=== PATIENT | male | born 1985 | race Caucasian/White ===

== ENCOUNTER 2024-02-09 10:13 | Emergency (ER) | payer OTHER, SELFPAY ==
[2024-02-09 10:21] VITALS: BP 123/77; PULSE 56; RESP 18; TEMP 37; O2SAT 98; BMI 25.8
--- NOTE | 2024-02-09 10:36 | ED.NAVMDI1 ---
HPI - Nausea/Vomiting/Diarrhea General Chief complaint: Nausea/Vomiting/Diarrhea Time Seen by Provider: 02/09/24 10:22 Source: patient Mode of arrival: walk-in Limitations: no limitations History of Present Illness HPI Narrative: 39-year-old male presents for nausea vomiting and diarrhea. It started 2 days ago. No hematemesis or complaints of abdominal pain. No blood in his stool. He states that this happens every 3 to 6 months and when it happens sometimes his potassium goes low. No fever. Related Data Previous Rx's Medication Instructions Recorded ondansetron 4 mg disintegrating 4 mg PO Q6H PRN nausea and 02/09/24 tablet vomiting #20 tabs Allergies Allergy/AdvReac Type Severity Reaction Status Date / Time No Known Drug Allergies Allergy Verified 02/09/24 10:23 Review of Systems ROS Narrative A ten point review of systems is negative except as noted above. Exam Narrative Exam Narrative: Nurses note and vital signs reviewed and patient is not hypoxic. General: The patient appears well and in no apparent distress. Patient is resting comfortably on cart. Skin: Warm, dry, no pallor noted. There is no rash noted. Head: Normocephalic, atraumatic Eye: Normal conjunctiva, no drainage, EOMI. PERRL Ears, Nose, Mouth, and Throat: oral mucosa is minimally dry. Nares patent. Cardiovascular: Regular Rate and Rhythm Respiratory: Patient is in no distress, no accessory muscle use, lungs are clear to auscultation, no wheezing, rales or rhonchi Back: non-tender GI: Soft and nontender Musculoskeletal: The patient has no evidence of calf tenderness, no pitting edema, symmetrical pulses noted bilaterally Neurological: A&O, normal speech Psychiatric: Cooperative Constitutional Vital Signs, click to edit/add: Last Vital Signs Temp 98.6 F 02/09/24 10:21 Pulse 56 L 02/09/24 10:21 Resp 18 02/09/24 10:21 BP 123/77 02/09/24 10:21 Pulse Ox 98 02/09/24 10:21 Course Vital Signs Vital signs: Vital Signs Temperature 98.6 F 02/09/24 10:21 Pulse Rate 56 L 02/09/24 10:21 Respiratory Rate 18 02/09/24 10:21 Blood Pressure 123/77 02/09/24 10:21 Pulse Oximetry 98 02/09/24 10:21 Temperature 98.6 F 02/09/24 10:21 Pulse Rate 56 L 02/09/24 10:21 Respiratory Rate 18 02/09/24 10:21 Blood Pressure 123/77 02/09/24 10:21 Pulse Oximetry 98 02/09/24 10:21 MDM - Nausea/Vomiting/Diarrhea MDM Narrative Medical decision making narrative: He was given IV fluids and oral potassium because of hypokalemia. He is improved and is able to be discharged home. Differential Diagnosis Differential diagnosis: Likely food poisoning, gastroenteritis and dehydration Lab Data Attestation: I reviewed the patient's lab results. Labs: Lab Results 02/09/24 Range/Units 10:30 WBC 12.2 H (4.0-11.0) 10^3/uL RBC 4.86 (4.70-6.10) 10^6/uL Hgb 14.8 (14.0-18.0) g/dL Hct 42.6 (42.0-54.0) % MCV 87.7 (80.0-94.0) fL MCH 30.5 (25.9-34.0) pg MCHC 34.7 (29.9-35.2) g/dL RDW 12.7 (11.0-15.0) % Plt Count 258 (150-450) 10^3/uL MPV 11.8 (9.5-13.5) fL Neut % (Auto) 76.0 H (43.0-75.0) % Lymph % (Auto) 16.2 L (20.5-60.0) % [place] % (Auto) 5.4 (1.7-12.0) % Eos % (Auto) 1.8 (0.9-7.0) % Baso % (Auto) 0.2 (0.2-2.0) % Neut # (Auto) 9.3 H (1.4-6.5) 10^3/uL Lymph # (Auto) 2.0 (1.2-3.8) 10^3/uL [place] # (Auto) 0.7 (0.3-0.8) 10^3/uL Eos # (Auto) 0.2 (0.0-0.7) 10^3/uL Baso # (Auto) 0.0 (0.0-0.1) 10^3/uL Abs Immat Gran (auto) 0.05 H (0.00-0.03) 10^3/uL Imm/Tot Granulo (auto) 0.4 (0.0-0.5) % Sodium 138 (136-145) mmol/L Potassium 2.8 L* (3.5-5.1) mmol/L Chloride 97 L (98-107) mmol/L Carbon Dioxide 25.0 (21.0-32.0) mmol/L Anion Gap 18.8 BUN 17.0 (7.0-18.0) mg/dL Creatinine 0.89 (0.70-1.30) mg/dL Est GFR ( Amer) >60 (>=60) Est GFR (Non-Af Amer) >60 (>=60) BUN/Creatinine Ratio 19.1 Glucose 108 H (74-106) mg/dL Calcium 9.2 (8.5-10.1) mg/dL Discharge Plan Discharge Stand Alone Forms: Portal Instructions Chief Complaint: Nausea/Vomiting/Diarrhea Clinical Impression: Nausea, vomiting, and diarrhea Patient Disposition: Home, Self-Care Time of Disposition Decision: 12:42 Condition: Good Mode of Transportation: Private Vehicle Prescriptions / Home Meds: New ondansetron 4 mg tablet,disintegrating 4 mg PO Q6H PRN (Reason: nausea and vomiting) Qty: 20 0RF Instructions: Acute Nausea and Vomiting (ED), Acute Diarrhea (ED) Referrals: Physician,Non-Staff, MD [Primary Care Provider] - 1 week
[2024-02-09 10:53] LABS: Basophils Percent Auto 0.2 % (0.2-2.0); Eosinophils Absolute Auto 0.2 10^3/uL (0.0-0.7); Eosinophils Percent Auto 1.8 % (0.9-7.0); Hematocrit 42.6 % (42.0-54.0); Hemoglobin 14.8 g/dL (14.0-18.0); Immature Granulocytes Abs Auto 0.05 10^3/uL (0.00-0.03); Immature Granulocytes Pct Auto 0.4 % (0.0-0.5); Lymphocytes Percent Auto 16.2 % (20.5-60.0); Mean Corpuscular HGB Conc 34.7 g/dL (29.9-35.2); Mean Corpuscular Hemoglobin 30.5 pg (25.9-34.0); Mean Corpuscular Volume 87.7 fL (80.0-94.0); Mean Platelet Volume 11.8 fL (9.5-13.5); Monocytes Absolute Auto 0.7 10^3/uL (0.3-0.8); Monocytes Percent Auto 5.4 % (1.7-12.0); Neutrophils Absolute Auto 9.3 10^3/uL (1.4-6.5); Platelet Count 258 10^3/uL (150-450); Red Blood Count 4.86 10^6/uL (4.70-6.10); Red Cell Distribution Width 12.7 % (11.0-15.0); White Blood Count 12.2 10^3/uL (4.0-11.0)
[2024-02-09] MEDS: 0.9 % SODIUM CHLORIDE 1,000 ML 1000 ML IV (10:53)
[2024-02-09 10:54] LABS: Anion Gap 18.8; BUN Creatinine Ratio 19.1; Calcium 9.2 mg/dL (8.5-10.1); Chloride 97 mmol/L (98-107); Estimated GFR (African America >60 (>=60); Estimated GFR (Non-African Ame >60 (>=60); Glucose 108 mg/dL (74-106); Sodium 138 mmol/L (136-145)
[2024-02-09] MEDS: ONDANSETRON PF 4 MG/2 ML VIAL IV (10:57)
[2024-02-09 11:06] LABS: Potassium 2.8 mmol/L (3.5-5.1)
[2024-02-09] MEDS: POTASSIUM BICARBONATE/CIT 25 MEQ TABLET EFF 50 MEQ PO (11:19)
[2024-02-09 12:46] VITALS: PULSE 51; RESP 14; O2SAT 98
== END 2024-02-09 12:58 | disposition home or self-care (01) ==
PROVIDERS: Emergency Provider Emergency Medicine
DX: R11.2 Nausea with vomiting, unspecified (principal); R19.7 Diarrhea, unspecified; E87.6 Hypokalemia
CPT/HCPCS: 36415; 80048; 85025; 96361; 96374; 99284

== ENCOUNTER 2024-05-27 13:59 | Emergency (ER) | payer OTHER, SELFPAY ==
[2024-05-27] VITALS (12 sets, daily range): BP systolic 121–149; BP diastolic 61–95; PULSE 62; TEMP 36.4; O2SAT 96–100; BMI 24.9
--- NOTE | 2024-05-27 14:15 | ED.NAVMDI1 ---
HPI - Nausea/Vomiting/Diarrhea General Chief complaint: Nausea/Vomiting/Diarrhea Stated complaint: WEAKNESS, SOB Time Seen by Provider: 05/27/24 14:01 Source: patient Mode of arrival: walk-in History of Present Illness HPI Narrative: 39 year old male presents to the ED for fatigue, chills, N/V/D, generalized abd pain. Onset was 05/24/24. Denies fever, cough, CP, dizziness, urinary sx. States he believes he is in withdrawal from Suboxone. He typically buys it on the streets. His last dose was 05/22/24. He states the sx are a recurrent issue when he is out of the medication. States it has been an issue for him for years. Related Data Home Medications ?Medication ?Instructions ?Recorded ?Confirmed No Known Home Medications 05/27/24 05/27/24 Previous Rx's ?Medication ?Instructions ?Recorded lorazepam 0.5 mg tablet (Ativan) 0.5 mg PO Q8H PRN withdrawal 05/27/24 symptoms 3 days #8 tabs ondansetron 4 mg disintegrating 4 mg PO TID PRN nausea and 05/27/24 tablet vomiting 4 days #12 tabs Allergies Allergy/AdvReac Type Severity Reaction Status Date / Time No Known Drug Allergies Allergy Verified 02/09/24 10:23 Review of Systems ROS Constitutional Reports: chills; Denies: fever Eyes Denies: change in vision Ears, nose, mouth, and throat Reports: throat pain; Denies: neck pain Cardiovascular Denies: chest pain or palpitations Respiratory Denies: shortness of breath or cough Gastrointestinal Reports: abdominal pain, nausea, vomiting and diarrhea Musculoskeletal Denies: back pain or neck pain Integumentary/Breast Denies: rash Neurological Denies: headache, numbness in extremities, weakness in extremities or dizziness Exam Constitutional Vital Signs, click to edit/add: Last Vital Signs Temp 97.6 F 05/27/24 14:05 Pulse 62 05/27/24 14:05 Resp 16 05/27/24 14:05 BP 136/72 05/27/24 16:30 Pulse Ox 96 05/27/24 16:30 O2 Del Method Room Air 05/27/24 14:05 Common normals: no apparent distress and oriented x3 General appearance: cooperative HENMT Nose: external nose normal Mouth: oral and palatal mucosa normal and lip normal Throat: posterior oropharynx normal and uvula midline Eye Common normals: conjunctivae normal and no scleral icterus Neck & C-Spine Common normals: supple Respiratory Common normals: normal respiratory effort and clear to auscultation bilaterally Effort & inspection: able to speak in complete sentences and symmetric chest movement Cardio Common normals: regular rate and regular rhythm GI Common normals: Normal to inspection, nondistended, normoactive bowel sounds present, soft to palpation and non-tender Neuro Common normals: oriented x3 Sensorium/orientation: awake and alert Speech: speech normal Course Vital Signs Vital signs: Vital Signs Temperature 97.6 F 05/27/24 14:05 Pulse Rate 62 05/27/24 14:05 Respiratory Rate 16 05/27/24 14:05 Blood Pressure 121/78 05/27/24 14:05 Pulse Oximetry 98 05/27/24 14:05 Oxygen Delivery Method Room Air 05/27/24 14:05 Temperature 97.6 F 05/27/24 14:05 Pulse Rate 62 05/27/24 14:05 Respiratory Rate 16 05/27/24 14:05 Blood Pressure 136/72 05/27/24 16:30 Pulse Oximetry 96 05/27/24 16:30 Oxygen Delivery Method Room Air 05/27/24 14:05 MDM - Nausea/Vomiting/Diarrhea MDM Narrative Medical decision making narrative: Findings were discussed with the patient and his family member. He felt his sx were due to withdrawal from Suboxone. He was given IV fluids, Reglan, Benadryl, Ativan. A Catapres patch was applied. He reported he was feeling better. He was advised to leave the Catapres patch in place for 7 days to help with his withdrawal sx. [place] was reviewed. Prescriptions were provided for Zofran and Ativan. Follow up with pcp for a recheck, further evaluation and treatment. Differential Diagnosis Differential diagnosis: Likely gastroenteritis, dehydration and other (Opiate withdrawal, viral illness) Medical Records Attestation: I reviewed the patient's medical records. Lab Data Attestation: I reviewed the patient's lab results. Labs: Lab Results 05/27/24 Range/Units 14:23 WBC 14.4 H (4.0-11.0) 10^3/uL RBC 4.72 (4.70-6.10) 10^6/uL Hgb 14.4 (14.0-18.0) g/dL Hct 41.0 L (42.0-54.0) % MCV 86.9 (80.0-94.0) fL MCH 30.5 (25.9-34.0) pg MCHC 35.1 (29.9-35.2) g/dL RDW 12.8 (11.0-15.0) % Plt Count 273 (150-450) 10^3/uL MPV 11.6 (9.5-13.5) fL Neut % (Auto) 80.1 H (43.0-75.0) % Lymph % (Auto) 13.5 L (20.5-60.0) % [place] % (Auto) 6.0 (1.7-12.0) % Eos % (Auto) 0.0 L (0.9-7.0) % Baso % (Auto) 0.1 L (0.2-2.0) % Neut # (Auto) 11.6 H (1.4-6.5) 10^3/uL Lymph # (Auto) 2.0 (1.2-3.8) 10^3/uL [place] # (Auto) 0.9 H (0.3-0.8) 10^3/uL Eos # (Auto) 0.0 (0.0-0.7) 10^3/uL Baso # (Auto) 0.0 (0.0-0.1) 10^3/uL Abs Immat Gran (auto) 0.05 H (0.00-0.03) 10^3/uL Imm/Tot Granulo (auto) 0.3 (0.0-0.5) % Sodium 137 (136-145) mmol/L Potassium 3.0 L (3.5-5.1) mmol/L Chloride 99 (98-107) mmol/L Carbon Dioxide 25.5 (21.0-32.0) mmol/L Anion Gap 15.5 BUN 13.0 (7.0-18.0) mg/dL Creatinine 0.87 (0.70-1.30) mg/dL Est GFR ( Amer) >60 (>=60) Est GFR (Non-Af Amer) >60 (>=60) BUN/Creatinine Ratio 14.9 Glucose 115 H (74-106) mg/dL Calcium 9.6 (8.5-10.1) mg/dL Total Bilirubin 0.7 (0.2-1.0) mg/dL AST 14 L (15-37) U/L ALT 16 (16-63) U/L Alkaline Phosphatase 54 (46-116) U/L Total Protein 8.4 H (6.4-8.2) g/dL Albumin 4.3 (3.4-5.0) g/dL Globulin 4.1 g/dL Albumin/Globulin Ratio 1.0 Lipase 24.0 (16.0-77.0) U/L Discharge Plan Discharge Stand Alone Forms: Portal Instructions Chief Complaint: Nausea/Vomiting/Diarrhea Clinical Impression: Nausea, vomiting, and diarrhea, Withdrawal syndrome Patient Disposition: Home, Self-Care Time of Disposition Decision: 16:38 Condition: Good Mode of Transportation: Private Vehicle Prescriptions / Home Meds: New ondansetron 4 mg tablet,disintegrating 4 mg PO TID PRN (Reason: nausea and vomiting) 4 Days Qty: 12 0RF lorazepam [Ativan] 0.5 mg tablet 0.5 mg PO Q8H PRN (Reason: withdrawal symptoms) 3 Days Qty: 8 0RF No Action No Known Home Medications Print Language: Mongolian Instructions: Acute Nausea and Vomiting (ED), Narcotic Withdrawal (ED) Additional Instructions: Return to the ER for new or worsening symptoms. Remove the Catapres patch in one week. Referrals: Physician,Non-Staff, MD [Primary Care Provider] - 1 week Discharge Date/Time: 05/27/24 16:50
--- OUTSIDE RECORDS SUMMARY | 2024-05-27 14:22 | XMS_ITS ---
Patient Summarization (C-CDA 2.1 CCD) Created on: May 27, 2024 LEANDRO BLACK : 1985 Sex: Male Author Organization Sample organization Care Team Providers Care Supervisor [employer] Name Role Phone COLLIN, DR SANJUANA Xiao Admitting Unavailabl e REINECK, DR SANJUANA Xiao Attending Unavailabl e MISC, DR YANCEY Primary Care Unavailable COLLIN, DR SANJUANA Xiao Consulting Unavailabl e CASANDRACHTERESO ., KATELYN POTTER Consulting Unavailabl e STEPHANIE HARRIS Consulting Unavailable MISC, DR YANCEY Primary Care Unavailable IZABELLA VALERA Admitting Unavailable IZABELLA VALERA Attending Unavailable BUNNY TONG Consulting Unavailable ALBERTO ALONZO Consulting Unavailable Amber English Primary Care Physician [phone] Peña Gr Admitting Unavailable Peña Gr Attending Unavailable [facility] Cardio, XXXX Consulting Unavailable Yuan Whitley Admitting Unavailable Yuan Whitley Attending Unavailable Armando Nuñez Consulting Unavailable MD Armando Nuñez Consulting Unavailable Armando Nuñez Consulting Unavailable Armando Nuñez Consulting Unavailable MD Can ROSA Consulting Unavailable Can ROSA Consulting Unavailable Can ROSA Consulting Unavailable Channing, Cyndee A Attending Unavailable Channing, Cyndee A Referring Unavailable Channing, Cyndee A Admitting Unavailable Channing, Cyndee A Attending Unavailable Chaninng, Cyndee A Attending Unavailable Channing, Cnydee A Attending Unavailable Channing, Cyndee A Attending Unavailable Channing, Cyndee A Attending Unavailable Channing, Cyndee A Referring Unavailable Channing, Cyndee A Admitting Unavailable Channing, Cyndee A Attending Unavailable IBARRA, Gely Admitting Unavailable IBARRA, Gely Attending Unavailable Channing, Cyndee A Attending Unavailable Channing, Cyndee A Admitting Unavailable Allergies Allergy Classification Reported Allergen(s) Allergy Type Date of Onset Reaction(s) Facility (4 sources) Shrimp product; Translations: [Shrimp] Drug allergy Weal (disorder), Edema of oral soft tissues (disorder) [facility] (1 source) No Known Medication Allergies; Translations: [No Known Medication Allergies] Propensity to adverse reactions (disorder) [facility] Encounters Encounter Date Encounter Type Care Provider Facility Start: 12-24-2023 End: 12-25-2023 Pre-admission assessment Can ROSA [facility] Start: 11-27-2023 End: 11-27-2023 ambulatory Cyndee A Channing Facility:[facility] Start: 11-27-2023 End: 11-27-2023 Patient encounter procedure Cyndee A Channing [facility] Start: 11-13-2023 End: 11-14-2023 Alcohol abuse prevention Yuan Whitley [facility] Start: 11-13-2023 End: 11-14-2023 ambulatory XXXX [facility] Cardio Facility:[facility] Start: 08-27-2023 End: 08-27-2023 ambulatory Cyndee A Channing Facility:[facility] Start: 08-27-2023 End: 08-27-2023 Patient encounter procedure Cyndee A Channing [facility] Start: 07-25-2023 End: 07-25-2023 ambulatory Cyndee A Channing Facility:[facility] Start: 07-25-2023 End: 07-25-2023 Patient encounter procedure Cyndee A Channing [facility] Start: 07-25-2023 End: 07-25-2023 ambulatory Cyndee A Channing Facility:[facility] Start: 07-25-2023 End: 07-25-2023 Patient encounter procedure Cyndee A Channing [facility] Start: 07-22-2023 End: 07-22-2023 ambulatory Gely IBARRA Facility:[facility] Start: 07-22-2023 End: 07-22-2023 Patient encounter procedure Gely IBARRA [facility] Start: 07-18-2023 End: 07-19-2023 ambulatory Peña Gr Facility:[facility] Start: 07-18-2023 End: 07-19-2023 Observation Peña Gr [facility] Start: 07-18-2023 End: 07-18-2023 ambulatory Cyndee A Channing Facility:[facility] Start: 07-18-2023 End: 07-18-2023 Patient encounter procedure Cyndee A Channing [facility] Start: 07-11-2023 End: 07-11-2023 ambulatory Cyndee A Channing Facility:[facility] Start: 07-11-2023 End: 07-11-2023 Patient encounter procedure Cyndee A Channing [facility] Start: 05-29-2023 End: 05-29-2023 ambulatory Cyndee A Channing Facility:[facility] Start: 05-29-2023 End: 05-29-2023 Patient encounter procedure Cyndee A Channing [facility] Start: 05-23-2023 End: 05-23-2023 ambulatory Cyndee A Channing Facility:[facility] Start: 05-23-2023 End: 05-23-2023 Patient encounter procedure Cyndee A Channing [facility] Start: 02-20-2023 End: 02-20-2023 Patient encounter procedure Resendez SALAM [facility] Start: 01-28-2023 End: 01-28-[address] DOCTOR BALDWIN Facility:[facility] Start: 10-08-2022 End: 10-08-[address] SANJUANA POLANCO Facility:[facility] Medical Equipment Procedure Code Equipment Code Equipment Origin al Text Equipment Identifier Dates HERNIA REPAIR, R OBOT ASSISTED Armando Nuñez MD 03/13/21 Non Biological Abdomen {[id number] {20}02 FDA Start: 03-13-2021 Immunizations Immunization Date Immunization Notes Care Provider Fa cility 03-07-2021 SARS-CoV-2 (COVID-19 ) mRNA-1273 vaccine Resendez SALAM [facility] 02-07-2021 SARS-CoV-2 (COVID-19 ) mRNA-1273 vaccine Resendez SALAM [facility] 11-25-2020 SARS-CoV-2 (COVID-19 ) mRNA-1273 vaccine Resendez SALAM [facility] 10-19-2015 tetanus toxoid, reduced diphtheria toxoid, and acellular pertussis vaccine, adsorbed [facility] SALAM [facility] Comment on above: Result Comment: R de ltoid. NEGATED: Highlighted row has not occurred!11-22-2023 influenza virus vaccine, unspecified formulation Cyndee Marinmetz [facility] NEGATED: Highlighted row has not occurred!08-26-2023 influenza virus vaccine, unspecified formulation Cyndeebharat MarinChanning [facility] NEGATED: Highlighted row has not occurred!02-20-2023 influenza virus vaccine, unspecified formulation Resendez SALAM [facility] Medications Current Medications Medication Drug Class(es) Dates Sig (Normalized) Sig (Original) acetaminophen 325 mg oral tablet (5 sources) Start: 07-19-2023 take 2 tablets by mouth every six hours as needed for pain acetaminophen 325 mg Tab 650 mg = 2 tab(s), Oral, q6hr, PRN Pain, Refills(s) 0 Start Date: 07/19/23 Status: Ordered acetaminophen 325 mg / HYDROcodone bitartrate 5 mg oral tablet (1 source) Opioid Agonist Start: 07-18-2023 take 1 tablet by mouth every six hours for pain acetaminophen-hydro codone 325 mg-5 mg oral tablet 1 tab(s), Oral, q6hr for pain, Refill(s) 0 Start Date: 07/18/23 Status: Ordered famotidine 20 mg oral tablet (10 sources) Histamine-2 Receptor Antagonist Start: 08-27-2023 End: 02-23-2024 take 1 tablet by mouth at bedtime famotidine 20 mg Tab 20 mg = 1 tab(s), Oral, Bedtime, X 90 day(s), # 90 tab(s), Refills(s) 1, Pharmacy: [facility]/pharmacy #[id number], 180, cm, 08/27/23 8:30:00 EDT, Height/Length Dosing, 83.9, kg, 08/27/23 8:30:00 EDT, Weight Dosing Start Date: 08/27/23 Stop Date: 02/23/24 Status: Ordered Start: 07-18-2023 take 1 tablet by jasmin th at bedtime famotidine 20 mg Tab 20 mg = 1 tab(s), Oral, Bedtime, # 30 tab(s), Refills(s) 0 Start Date: 07/18/23 Status: Ordered Start: 07-11-2023 Pepcid OTC, Re fills(s) 0 Start Date: 07/11/23 Status: Ordered magnesium sulfate 225 MG / potassium chloride 188 MG / sodium sulfate 1479 MG Oral Tablet [Sutab] (1 source) Start: 02-20-2023 take 1 tablet by mouth once Sutab oral tablet See Instructions, 1 EA, Refill(s) 0, JAMILAH, Please follow instructions per packaging and physician's handout, [facility], 180, cm, 02/20/23 9:09:00 EDT, Height/Length Dosing, 87.7, kg, 02/20/23 9:09:00 EDT, Weight Dosing Start Date: 02/20/23 Status: Ordered pantoprazole 40 mg delayed release oral tablet (8 sources) Proton Pump Inhibitor Start: 08-27-2023 End: 02-23-2024 take 1 tablet by mouth once daily Pantoprazole [address] Tab 40 mg = 1 tab(s), Oral, Daily, X 90 day(s), # 90 tab(s), Refills(s) 1, Pharmacy: [facility]/pharmacy #[id number], 180, cm, 08/27/23 8:30:00 EDT, Height/Length Dosing, 83.9, kg, 08/27/23 8:30:00 EDT, Weight Dosing Start Date: 08/27/23 Stop Date: 02/23/24 Status: Ordered Start: 07-19-2023 End: 08-18-2023 take 1 tablet by mouth twice daily Pantoprazole [address] Tab 40 mg = 1 tab(s), Oral, BID, X 30 day(s), # 60 tab(s), Refills(s) 0, Pharmacy: [facility]/pharmacy #[id number], 180, cm, 07/18/23 12:20:00 EDT, Height/Length Dosing, 78.8, kg, 07/18/23 12:20:00 EDT, Weight Dosing Start Date: 07/19/23 Stop Date: 08/18/23 Status: Ordered sildenafil 50 mg oral tablet (3 sources) Phosphodiesterase 5 Inhibitor Start: 11-13-2023 take 1 tablet by mouth once daily as needed sildenafil 50 mg Tab 50 mg = 1 tab(s), Oral, Daily, PRN for erectile dysfunction, Refills(s) 0 Start Date: 11/13/23 Status: Ordered vancomycin 125 mg oral capsule (4 sources) Glycopeptide Antibacterial Start: 02-20-2023 take 1 capsule by mouth four times daily vancomycin 125 mg Cap TAKE 1 CAPSULE BY MOUTH FOUR TIMES A DAY, Infection or prophylaxis for antibiotics Start Date: 02/20/23 Status: Ordered Completed/Discontinued Medications Medication Drug Class(es) Dates Sig (Normalized) Sig (Original) omeprazole 40 mg delayed release oral capsule (5 sources) Proton Pump Inhibitor Start: 07-11-2023 End: 2024 take 1 capsule by mouth once daily omeprazole 40 mg Cap-DR 40 mg = 1 cap(s), Oral, Daily, TAKE 1 CAPSULE BY MOUTH EVERY DAY, X 90 day(s), # 90 cap(s), Refills(s) 1, Pharmacy: [facility]/pharmacy #[id number], 180, cm, 07/11/23 10:31:00 EDT, Height/Length Dosing, 86.4, kg, 07/11/23 10:31:00 EDT, Weight Dosing Start Date: 07/11/23 Stop Date: 01/07/24 Status: Ordered Start: 02-20-2023 take 1 capsule by mo uth once daily omeprazole 40 mg Cap-DR TAKE 1 CAPSULE BY MOUTH EVERY DAY, Control of stomach acid Start Date: 02/20/23 Status: Ordered potassium chloride 10 meq extended release oral capsule (5 sources) Start: 07-19-2023 take 1 capsule by mouth once daily potassium chloride 10 mEq Cap-ER 10 mEq = 1 cap(s), Oral, Daily, # 30 cap(s), Refills(s) 0, Pharmacy: [facility]/pharmacy #[id number], 180, cm, 07/18/23 12:20:00 EDT, Height/Length Dosing, 78.8, kg, 07/18/23 12:20:00 EDT, Weight Dosing Start Date: 07/19/23 Status: Ordered Payers Date Payer Category Payer Unknown [id number] 1985 Unknown [id number] 2.16.84 [id number] 1985 Unknown [id number] 2.16.84 [id number] 1985 Unknown [id number] 2.16.8 [id number] 1985 Unknown [id number] 2.16.8 [id number] 1985 Unknown [id number] 2.16.8 [id number] 1985 Unknown [id number] 2.16.8 [id number] 1985 Unknown [id number] 2.16.8 [id number] 1985 Unknown [id number] 2.16.8 [id number] 1985 Unknown [id number] 2.16.8 [id number] 1985 Unknown [id number] 2.16.8 [id number] 1985 Unknown [id number] 2.16.8 [id number] 1985 Unknown [id number] 2.16.8 [id number] 1985 Unknown [id number] 2.16.8 [id number] 1959 Unknown [id number] Problems Active Problems Problem Classification Problem Date Documented Da te Episodic/Chronic Abdominal hernia (13 sources) Right inguinal hernia 02-21-2021 Episodic Abdominal pain (20 sources) Abdominal pain; Translations: [Epigastric pain] Onset: 3 02-15-2023 Episodic Alcohol-related disorders (1 source) Nondependent alcohol abuse in remission; Translations: [Alcohol abuse, in remission] Onset: 3 Chronic Cardiac dysrhythmias (2 sources) Sinus bradycardia; Translations: [Bradycardia, unspecified] Onset: 3 Episodic Contraceptive and procreative management (13 sources) Contraception status 01-11-2022 Episodic Diseases of white blood cells (1 source) Leukocytosis; Translations: [Elevated white blood cell count, unspecified] Onset: 3 Chronic Esophageal disorders (15 sources) Gastroesophageal reflux disease without esophagitis; Translations: [Gastro-esophageal reflux disease without esophagitis] Onset: 3 Chronic Fluid and electrolyte disorders (3 sources) Hypo-osmolality and or hyponatremia; Translations: [Hypo-osmolality and hyponatremia] Onset: 3 Episodic Gastroduodenal ulcer (except hemorrhage) (14 sources) Gastric ulcer; Translations: [Gastric ulcer, unspecified as acute or chronic, without hemorrhage or perforation] Onset: 3 Chronic Gastrointestinal hemorrhage (20 sources) Hemorrhage of rectum and anus; Translations: [Hemorrhage of anus and rectum] Onset: 3 Episodic Hemorrhoids (13 sources) Hemorrhoids; Translations: [Unspecified hemorrhoids] Onset: 3 Episodic Intestinal infection (17 sources) Clostridium difficile colitis; Translations: [Enterocolitis due to Clostridium difficile, not specified as recurrent] Onset: 3 Episodic Comment on above: Problem added second christi to documenting Active C-Diff. Nausea and vomiting (20 sources) Nausea and vomiting; Translations: [Nausea with vomiting, unspecified] Onset: 3 Episodic Noninfectious gastroenteritis (2 sources) Noninfective gastroenteritis and colitis, unspecified; Translations: [Noninfectious enteritis] Onset: 3 Episodic Other aftercare (2 sources) Long-term current use of drug therapy; Translations: [Other assisted (current) drug therapy] Onset: 3 Episodic Other and unspecified benign neoplasm (13 sources) Polyp of colon; Translations: [Polyp of colon] Onset: 3 Episodic Other and unspecified benign neoplasm (13 sources) History of polyp of colon; Translations: [Personal history of colonic polyps] Onset: 3 Episodic Other circulatory disease (1 source) Disorder of respiratory system; Translations: [Other specified symptoms and signs involving the circulatory and respiratory systems] Onset: 3 Episodic Other circulatory disease (4 sources) Feeling of lump in throat 08-27-2023 Episodic Other gastrointestinal disorders (3 sources) Diarrhea, unspecified; Translations: [DIARRHEA UNSPECIFIED] Onset: 3 Episodic Other gastrointestinal disorders (15 sources) Diarrhea; Translations: [Diarrhea, unspecified] Onset: 3 Episodic Other gastrointestinal disorders (1 source) Dysphagia; Translations: [Dysphagia, unspecified] Onset: 3 Episodic Other hematologic conditions (1 source) Secondary polycythemia; Translations: [Secondary polycythemia] Onset: 3 Episodic Other nutritional; endocrine; and metabolic disorders (13 sources) Body mass index 25-29 - overweight 02-21-2021 Episodic Substance-related disorders (17 sources) Cannabis abuse, uncomplicated; Translations: [Nicotine dependence, cigarettes, uncomplicated] Onset: 3 10-19-2015 Chronic Comment on above: Added secondary to d ocumentation in Social History. Substance-related disorders (2 sources) Cannabis misuse; Translations: [Cannabis use, unspecified, uncomplicated] Onset: 3 Episodic Past or Other Problems Problem Classification Problem Date Documented Da te Episodic/Chronic E Codes: Natural/environment (1 source) Other and unspecified overexertion or strenuous movements or postures, initial encounter; Translations: [OTH AND UNS OVREXRT/STRN MVMT/POS INT] Onset: 10-10-2022 Episodic Other connective tissue disease (3 sources) Pain in right foot; Translations: [PAIN IN RIGHT FOOT] Onset: 10-08-2022 Episodic Sprains and strains (1 source) Unspecified sprain of right foot, initial encounter; Translations: [UNSPECIFIED SPRAIN RT FOOT INITIAL] Onset: 10-10-2022 Episodic Unclassified (13 sources) None (qualifier value) 10-19-2015 Procedures Date Procedure Procedure Detail Performing Clinician Start: 05-06-2023 Colonoscopy Cyndee Simonz Start: 05-06-2023 Esophagogastroduodenoscopy Cyndee Simon cara Start: 01-11-2022 Vasectomy Mal ASENCIO Start: 03-13-2021 Laparoscopic repair of incisional hernia Resendezmariola ASENCIO Start: 02-24-2020 History of lumbar fusion Resendezmariola CORRALKuaiyong Start: 06-01-2019 Colonoscopy Resendezmariola CORRALKuaiyong Start: 06-01-2019 Esophagogastroduodenoscopy Mal ASENCIO Colonoscopy Mal CORRALKuaiyong Results Test Name Value Interpretation Reference Range Facil ity Heart and Vascular Office/Cl in Noteon 12-30-2023 Heart and Vascular Office/Clinic Note History of Present Illness Patient is a very pleasant 38-year-old gentleman, longtime smoker since 6 grade approximately 1 pack/day for 30 years, no known coronary disease, myocardial infarction, previous TIA or CVA. Patient apparently has hypercholesterolemia but is on no medications. Patient apparently has chronic colitis, and recently had episode of multiple episodes of nausea and vomiting since Saturday, too many to count, as well as diarrhea but no chest pain or anginal symptoms. He complained of some mild shortness of breath. Patient was found to be hypokalemic with a potassium of 2.6. EKG on admission showed sinus bradycardia, no acute changes. First troponin is negative. TSH is pending. On further history the patient denies any recent exertional chest pain, angina, flulike illness. He is a reformed alcoholic and has not drank in 4 months time. He denies any illicit drug use. [1] During his admission he underwent a 2D echo with Doppler in 11/14/2023 with the following results: (11/14/2023 11:01 EST Echo Transthoracic Complete) Interpretation Summary No comparison study is available. Ejection Fraction = 60-65%. The left ventricular wall motion is normal. Grade I diastolic dysfunction, (abnormal relaxation pattern). Right ventricular systolic pressure is 33 mmHg. [2] Patient is now here in follow-up. Review of Systems Constitutional: no fever, no chills, no weakness, no fatigue Respiratory: no shortness of breath, no cough, no orthopnea, no wheezing Cardiovascular: no chest pain, no palpitations, no edema Neuro: no dizziness no light headed no syncope Additional ROS info: Except as noted in the above Review of Systems and in the History of Present Illness all other systems have been reviewed and are negative or noncontributory. Physical Exam General: alert, no acute distress Neck: Supple, noJVD nocarotid bruit Cardiovascular: regular rate and rhythm, no murmur normal peripheral perfusion Respiratory: Lungs CTA, respirations non labored Extremities: no edema Neurological: oriented x 4, LOC appropriate for age, sensation equal & normal bilaterally, speech normal Skin: Warm, dry, intact- no rash or concerning lesions Follow-up No qualifying data available Problem List/Past Medical History Ongoing Acid reflux Bleeding per rectum BMI 29.0-29.9,adult Clostridium difficile diarrhea Colon polyps Encounter for vasectomy Gastric erosions Globus sensation Hemorrhoids History of colon polyps Nausea and vomiting Right inguinal hernia Smoker Historical Abdominal pain Colitis, Clostridium difficile Diarrhea Epigastric pain Melena Nausea None Procedure/Surgical History Colonoscopy (05/06/2023), Esophagogastroduodenos copy (05/06/2023), Vasectomy (01/11/2022), Laparoscopic repair of incisional hernia (03/13/2021), History of lumbar fusion (02/24/2020), Colonoscopy (06/01/2019), Esophagogastroduodenos copy (06/01/2019), Colonoscopy. Medications famotidine 20 mg Tab, 20 mg= 1 tab(s), Oral, Bedtime, 1 refills, Still taking, not as prescribed: has not taken in a few weeks Pantoprazole [address] Tab, 40 mg= 1 tab(s), Oral, Daily, 1 refills, Still taking, not as prescribed: has not taken in a few weeks sildenafil 50 mg Tab, 50 mg= 1 tab(s), Oral, Daily, PRN Allergies Shrimp (Hives, Edema of mouth) Social History Alcohol - High Risk, 03/06/2021 Past, Beer, Daily, 02/20/2023 Exercise - Does not exercise, 05/25/2019 Substance Abuse - High Risk, 03/06/2021 Current, Marijuana, 1-2 times per week, 02/20/2023 Tobacco - High Risk, 03/06/2021 10 or more cigarettes (1/2 pack or more)/day in last 30 days Tobacco Use:. Never Smokeless Tobacco Use:. Cigarettes, 08/27/2023 Family History Family history is negative Immunizations Vaccine Date Status Comments influenza virus vaccine, inactivated - Not Given Patient Refuses influenza virus vaccine, inactivated - Not Given Patient Refuses influenza virus vaccine, inactivated - Not Given Patient Refuses SARS-CoV-2 (COVID-19) mRNA-1273 vaccine 03/07/2021 Recorded SARS-CoV-2 (COVID-19) mRNA-1273 vaccine 02/07/2021 Recorded SARS-CoV-2 (COVID-19) mRNA-1273 vaccine 2020 Recorded diphtheria/pertussis, acel/tetanus adult 10/19/2015 Given R deltoid. [1] Consult Note; Can ROSA MD 11/14/2023 08:34 EST [2] Echo Transthoracic Complete; Can ROSA MD 11/14/2023 11:01 EST Normal [facility] Comment on above: Result Comment: Elec tronically Signed By: Can ROSA MD Insurance Correspondenceon 1 01-20-2023 Insurance Correspondence [id number] Normal [facility] Auto DiffOrdered By: SYSTEM SYSTEM on 11-14-2023 Basophils/100 WBC (Bld) 1.0 % Normal 0.0-2.0 [facility] Comment on above: Order Comment: Order Added by Discern Expert. Performed By: #### 1 [id number], [id number] #### [facility] [address] [place] [address] Basophils/Leukocytes Auto (Bld) [Pure # fraction] 0.1 E9/L Normal 0.0-0.2 [facility] Comment on above: Order Comment: Order Added by Discern Expert. Performed By: #### 1 [id number], [id number] #### [facility] [address] [place] [address] Eosinophils/100 WBC (Bld) 0.7 % Normal 0.0-8.0 [facility] Comment on above: Order Comment: Order Added by Discern Expert. Performed By: #### 1 [id number], [id number], [id number], [id number], [id number] #### [facility] [address] [place] [address] Eosinophils/Leukocyte s Auto (Bld) [Pure # fraction] 0.1 E9/L Normal 0.0-0.5 [facility] Comment on above: Order Comment: Order Added by Discern Expert. Performed By: #### 1 [id number], [id number], [id number], [id number], [id number], [id number] #### [facility] [address] [place] [address] Lymphocytes/100 WBC (Bld) 18.3 % Normal 14.0-50.0 [facility] Comment on above: Order Comment: Order Added by Discern Expert. Performed By: #### 1 [id number], 2393901, 8262099, [id number], [id number], [id number] #### [facility] [address] [place] [address] 61864 Lymphocytes/Leukocyte s Auto (Bld) [Pure # fraction] 2.2 E9/L Normal 1.0-4.0 [facility] Comment on above: Order Comment: Order Added by Discern Expert. Performed By: #### 1 [id number], [id number], 4646534, [id number], [id number], [id number] #### [facility] [address] [place] [address] Monocytes/100 WBC (Bld) 5.8 % Normal 4.0-14.0 [facility] Comment on above: Order Comment: Order Added by Discern Expert. Performed By: #### 1 [id number], [id number], [id number], [id number], [id number], [id number] #### [facility] [address] [place] [address] Monocytes/Leukocytes Auto (Bld) [Pure # fraction] 0.7 E9/L Normal 0.2-1.0 [facility] Comment on above: Order Comment: Order Added by Discern Expert. Performed By: #### 1 [id number], [id number], 1647448, [id number], 0453245, [id number] #### [facility] [address] [place] [address] Neutrophils/100 WBC (Bld) 74.2 % Normal 36.0-75.0 [facility] Comment on above: Order Comment: Order Added by Discern Expert. Performed By: #### 1 [id number], 8122120, 6354527, [id number], 8383608, [id number] #### [facility] [address] [place] [address] Neutrophils/Leukocyte s Auto (Bld) [Pure # fraction] 8.9 E9/L High 2.0-7.5 [facility] Comment on above: Order Comment: Order Added by Discern Expert. Performed By: #### 1 [id number], [id number], 7294091, [id number], [id number], [id number] #### [facility] [address] [place] [address] BMPOrdered By: SYSTEM SYSTEM on 11-14-2023 Anion gap [Moles/Vol] 11 mmol/L Normal 6-16 Rem isol Chem Comment on above: Performed By: #### 1 [id number], 29800745, 3223366, 1465764, 78984869, 5922244, 7838780 #### [facility] [address] [place] [address] Calcium [Mass/Vol] 8.7 mg/dL Low 8.9-11.1 Remiso l Chem Comment on above: Performed By: #### 1 1426005, 32750787, 6192063, 1777386, 08457369, 0221250, 7899932 #### [facility] [address] [place] [address] Chloride [Moles/Vol] 98 mmol/L Low 101-111 Neel idris Chem Comment on above: Performed By: #### 1 9278585, 28554261, 7596770, 0319624, 27928093, 1567271, 8792405 #### [facility] [address] [place] [address] CO2 [Moles/Vol] 30 mmol/L Normal 21-31 Remisol Chem Comment on above: Performed By: #### 1 9797465, 03319852, 6415134, 9318878, 52206243, 7169469, 5487688 #### [facility] [address] [place] [address] Creatinine [Mass/Vol] 0.8 mg/dL Normal 0.5-1.3 Rem isol Chem Comment on above: Performed By: #### 1 9778959, 78417693, 8368351, 8173499, 22258353, 1089080, 8433560 #### [facility] [address] [place] [address] Glucose [Mass/Vol] 112 mg/dL Normal 55-199 Remiso l Chem Comment on above: Performed By: #### 1 8375980, 32442282, 3947893, 8096440, 44371744, 6904237, 3155756 #### [facility] [address] [place] [address] Potassium [Moles/Vol] 3.5 mmol/L Normal 3.5-5.3 Rem isol Chem Comment on above: Performed By: #### 1 3206486, 94377038, 9455213, 3708585, 16514927, 4471961, 3518072 #### [facility] [address] [place] [address] Sodium [Moles/Vol] 135 mmol/L Normal 135-145 Remiso l Chem Comment on above: Performed By: #### 1 3397479, 02198474, 1340393, 5950826, 83990628, 7313020, 5161400 #### [facility] [address] [place] [address] Urea nitrogen [Mass/Vol] 19 mg/dL Normal 5-21 Remisol Chem Comment on above: Performed By: #### 1 1525524, 76601444, 9222800, 0408083, 80916138, 1716577, 2228821 #### [facility] [address] [place] [address] BMPon 11-14-2023 BUN/Creat Ratio 24 No Units High 10-20 [facility] Comment on above: Performed By: #### 1 3415256, 02699692, 9321142, 2643861, 62374326, 7802548, 1170858 #### [facility] [address] [place] [address] BNPon 11-14-2023 Int Ctr BNP Pass [facility] Comment on above: Performed By: #### 1 8339970, 67593375, 9907837, 8668462, 12745815, 3468341, 4849338 #### [facility] [address] [place] [address] Natriuretic peptide B (Bld) [Mass/Vol] 10 pg/mL Normal 5-80 [facility] Comment on above: Performed By: #### 1 9781967, 46479987, 1731788, 5373694, 15734224, 2559570, 8623438 #### [facility] [address] [place] [address] CBC w/ Auto DiffOrdered By: Jimmy Cotto on 11-14-2023 Erythrocyte distribution width (RBC) [Ratio] 12.7 % Normal 10.9-14.2 [facility] Comment on above: Performed By: #### 1 8174592, 36040050, 4551388, 5593745, 45139693, 3366994, 8409866 #### [facility] [address] [place] [address] Hematocrit (Bld) [Volume fraction] 40.2 % Normal 37.7-49.0 [facility] Comment on above: Performed By: #### 1 5102579, 85367518, 1238458, 3409810, 17605190, 3842681, 4469815 #### [facility] [address] [place] [address] Hemoglobin (Bld) [Mass/Vol] 14.1 g/dL Normal 13.5-17.5 [facility] Comment on above: Performed By: #### 1 0571420, 04640352, 9981875, 9233853, 06387671, 1007616, 0078743 #### [facility] [address] [place] [address] MCH (RBC) [Entitic mass] 31.5 pg Normal 27.0-34.0 [facility] Comment on above: Performed By: #### 1 2442422, 51940024, 2949844, 6352240, 14675568, 7108890, 5011921 #### [facility] [address] [place] [address] MCHC (RBC) [Mass/Vol] 35.1 g/dL Normal 31.4-36.0 FTM C [facility] Comment on above: Performed By: #### 1 6722796, 55685218, 8077904, 5410972, 83120294, 2198123, 2407178 #### [facility] [address] [place] [address] MCV (RBC) [Entitic vol] 89.7 fL Normal 80.0-100.0 FT [facility] Comment on above: Performed By: #### 1 8789079, 19781275, 9975990, 1266003, 44309612, 4199329, 0417122 #### [facility] [address] [place] [address] Platelet mean volume (Bld) [Entitic vol] 10.1 fL Normal 6.4-10.8 FT [facility] Comment on above: Performed By: #### 1 0201126, 37254290, 0164277, 4291868, 07667650, 9144546, 8678867 #### [facility] [address] [place] [address] Platelets (Bld) [#/Vol] 232.0 E9/L Normal 150.0-500.0 FT [facility] Comment on above: Performed By: #### 1 7374327, 79183450, 9820508, 1412818, 28980453, 8747844, 5043124 #### [facility] [address] [place] [address] RBC (Bld) [#/Vol] 4.5 E12/L Normal 4.3-5.9 FT [facility] Comment on above: Performed By: #### 1 8428470, 93510637, 1259228, 2975877, 86239476, 4933487, 6847806 #### [facility] [address] [place] [address] WBC corrected for nucl RBC Auto (Bld) [#/Vol] 12.0 E9/L High 4.0-11.0 [facility] Comment on above: Performed By: #### 1 7732234, 17031111, 5874846, 6169861, 05956849, 7702656, 1613414 #### [facility] [address] [place] [address] CHEMISTRYOrdered By: SYSTEM SYSTEM on 11-14-2023 eGFR mL/min/1.73 m2 Normal >=59mL/min/1. 73 m2 Remisol Chem Troponin 3.40 pg/mL Low 15.90 - 38.40 pg/mL Remisol Chem Comment on above: Interpretive Data: T he 95% CI (Confidence Interval) PPV (Positive Predictive Value) for myocardial infarction in females is 38 pg/mL, in males 51 pg/mL. The results should be used in conjunction with clinical conditions of myocardial infarction. (Access High Sensitivity Troponin I Instructions For Use, [employer], June 2018) Urea nitrogen/Creatinine [Mass ratio] 24 mg/mg High 10 - 20 Remisol Chem CHEMISTRYOrdered By: Jimmy sales on 11-14-2023 Natriuretic peptide B (Bld) [Mass/Vol] 10 pg/mL Normal 5 - 80 pg/mL [facility] HemeManSS CT Abdomen/Pelvis w/o Contra ston 11-14-2023 CT Abdomen/Pelvis w/o Contrast Exam Date/Time: 11/14/2023 08:37 EST Reason for Exam: Nausea with vomiting Report IMPRESSION: NO ACUTE ABDOMINOPELVIC PROCESS. COLONIC DIVERTICULOSIS WITHOUT DIVERTICULITIS. EXAM: CT Abdomen/Pelvis w/o Contrast History: Nausea and vomiting. Abdominal pain. Diarrhea. Technique: Multiple contiguous axial images were obtained of the abdomen and pelvis from the level of the lung bases through the ischial tuberosities without contrast. Multiplanar reformats were obtained. Comparison: MRI of the abdomen 07/25/2023 Findings: Lung bases are clear. Lack of intravenous contrast precludes optimal evaluation of the abdominal and pelvic viscera. Tiny cyst of the left lobe of the liver is again identified. The unenhanced liver is otherwise unremarkable. The gallbladder, spleen, stomach, pancreas, and adrenal glands appear within normal limits. The unenhanced kidneys appear within normal limits. No urinary tract calculi or hydronephrosis. Urinary bladder is well distended. The prostate is not enlarged. Abdominal aorta is nonaneurysmal. Minimal atherosclerotic calcification of the abdominal aorta. No retroperitoneal or abdominal/pelvic lymphadenopathy. No small bowel obstruction. A few sigmoid colon diverticuli are identified. No overt colonic mass or pericolonic inflammation. Appendix is within normal limits. No free fluid or free air. No acute osseous abnormality. Postsurgical changes of lumbosacral spine fusion. All CT scans at this facility use dose modulation, iterative reconstruction, and/or weight based dosing when appropriate to reduce radiation dose to as low as reasonably achievable. Report Ordering Provider: Gely IBARRA FINAL REPORT Dictated: 11/14/2023 9:40 am Cal Sosa DO Signed (Electronic Signature): 11/14/2023 9:40 am Signed by: Cal Sosa DO Transcribed by: ANSLEY Technologist: JOSE LUIS Technical Comments Rectal Contrast Given? No Oral contrast amount in ml's: 0 [facility] Consent To Leave AMAon 11-14 Consent To Leave AMA [id number] 0TIFF [facility] Inpatient Clinical Summaryon 11-14-2023 Inpatient Clinical Summary [place] [id number] Clinical Summary Person Information: Name: LEANDRO BLACK Age: 38 Years : 1985 Sex: Male PCP: Amber English DO Marital Status: Single Race: White Ethnicity: Non- or Language: [place] Citizen Visit Id: Visit Reason: Abdominal pain; Diarrhea; Vomiting; Nausea; VOMITING & DIARRHEA Speciality: Acuity: Enc Type: Observation Med Service: Medical Arrival: 11/13/2023 09:47:21 Discharge: 11/14/2023 13:04:23 Dispo Type: Eloped Address: [address] [place] [id number] Provider Notes: Diagnosis: 1:Hypokalemia; 2:Bradycardia on ECG; 3:Elevated WBC count; 4:Gastroenteritis; 5:Nausea and vomiting; 6:Acid reflux; 7:Smoker; 8:History of alcohol abuse; 9:On deep vein thrombosis (DVT) prophylaxis Problems Active Clostridium difficile diarrhea Hemorrhoids Globus sensation Acid reflux History of colon polyps Colon polyps Gastric erosions Bleeding per rectum Nausea and vomiting Encounter for vasectomy Right inguinal hernia BMI 29.0-29.9,adult Smoker Smoking Status: Current Every Day Smoker Functional Status: Sensory Deficits: History of Falls: Mobility Assistance Prior to Admission: ADLs: Independent Current Level of Assistance for Self-Care/Mobility: Cognitive Status: Oriented x 3 Allergies Shrimp (Hives) (Edema of mouth) Measurements: Height: 180.34 cm Weight: 82 kg Blood Pressure: 109 mmHg / 59 mmHg BMI: 25.31 kg/m2 Procedures No Procedures Documented Immunizations No Immunizations Documented This Visit Final Med List: famotidine (famotidine 20 mg Tab) 1 Tablets By Mouth at bedtime for 90 Days. Refills: 1. pantoprazole (Pantoprazole [address] Tab) 1 Tablets By Mouth every day for 90 Days. Refills: 1. sildenafil (sildenafil 50 mg Tab) 1 Tablets By Mouth every day as needed for erectile dysfunction. Care Team Members: Attending Physician: Yuan Whitley DO Consulting Physician: [facility] Cardio, XXXX; Joaquin ROMANO, Armando Pittman; SHELLEY ROMANO, Can Pascual Referring Physician: Follow up: Type Location [facility] Follow Up [facility] 11/27/2023 8:20 AM 11/27/2023 8:40 AM Confirmed Patient Education Information: [facility] Inpatient Patient Summaryon 11-14-2023 Inpatient Patient Summary [place] [id number] Patient Discharge Instructions PERSON INFORMATION Name: LEANDRO BLACK Date of : 1985 Current Date: 11/14/2023 13:07:08 PHYSICIANS Admitting Physician: Yuan Whitley DO Primary Care Physician: Amber English DO PCP Comment: Discharge Diagnosis: 1:Hypokalemia; 2:Bradycardia on ECG; 3:Elevated WBC count; 4:Gastroenteritis; 5:Nausea and vomiting; 6:Acid reflux; 7:Smoker; 8:History of alcohol abuse; 9:On deep vein thrombosis (DVT) prophylaxis Condition at Discharge: LEANDRO BLACK has been given the following list of follow-up instructions, prescriptions, and patient education materials: PATIENT FOLLOW-UP INFORMATION Diet: Discharge Activity: Discharge Restrictions: Wound Care Instructions: Remove Your Dressing In Days Call Your Doctor For: IF UNABLE TO CONTACT YOUR PHYSICIAN AND YOU FEEL IT IS AN EMERGENCY, GO TO THE NEAREST EMERGENCY ROOM OR CALL 911 Home Treatment: Devices/Equipment: None Special Services: Additional Instructions: Primary Care Physician to provide the following pending test results: Follow up: In the event that this physician does not participate in your insurance network, please consult with your insurance company to find a nearby participating provider. Type Location [facility] Follow Up [facility] 11/27/2023 8:20 AM 11/27/2023 8:40 AM Confirmed Comment: IKATHY VERNON A, have received the attached patient education materials/instructions and have verbalized understanding: Patient Signature Date Clinican/Nurse Signature ___ Date HERE ARE THE MEDICATION CHANGES THAT OCCURRED DURING YOUR HOSPITAL STAY Medications to Continue with No Changes Other Medications famotidine (famotidine 20 mg Tab) 1 Tablets By Mouth at bedtime for 90 Days. Refills: 1. Last Dose: ___Next Dose: ___ pantoprazole (Pantoprazole [address] Tab) 1 Tablets By Mouth every day for 90 Days. Refills: 1. Last Dose: ___Next Dose: ___ sildenafil (sildenafil 50 mg Tab) 1 Tablets By Mouth every day as needed for erectile dysfunction. Last Dose: ___Next Dose: ___ Comment: MEDICATION LIST PROVIDED FOR YOU IS A LIST OF YOUR CURRENT MEDICATIONS. PLEASE CARRY THIS WITH YOU AT ALL TIMES. famotidine (famotidine 20 mg Tab) 1 Tablets By Mouth at bedtime for 90 Days. Refills: 1. pantoprazole (Pantoprazole [address] Tab) 1 Tablets By Mouth every day for 90 Days. Refills: 1. sildenafil (sildenafil 50 mg Tab) 1 Tablets By Mouth every day as needed for erectile dysfunction. Pharmacy Information: [facility] Comment: PATIENT EDUCATION INFORMATION Instructions: Medication Leaflets: You may receive a survey from [employer] asking you to rate your care experience. Your feedback is important and will help us understand what we do well and how we can improve the quality of care we provide to you, your loved ones and our community. It?s an honor to serve you. Thank you for choosing [facility] Interdisciplinary Note - Satya e Manageron 11-14-2023 Interdisciplinary Note - Entertainment Musician CRM to room to discuss DC planning. Patient is getting an ECHO at this time. CRM will come back to room later today. CRM back to room patient is awake, alert and oriented. Patient is from home with his GF. His dad would be his ride at DC. Patient is here with N/V/D. He was found to be Bradycardic. Patient is assigned to Gely RUBIO, see notes. Patient will get Echo today and cardiology consult. Per Gely if GI symptoms don't improve might need possible GI consult. Patient denied needs for DME, HH or PM at [place]. Patient was provided CRM contact, white board updated. Anticipated DC later today or 11/15. CRM following Per primary nursing patient left AMA [facility] Comment on above: Result Comment: Elec tronically Signed By: Cari Corea\.br\Date and Time Signed: 11/14/23 13:08 EST MagnesiumOrdered By: SYSTEM SYSTEM on 11-14-2023 Magnesium [Mass/Vol] 2.1 mg/dL Normal 1.3-2.4 Neel idris Chem Comment on above: Performed By: #### 1 [id number], 03163350, 3462578, 1086724, 67612948, 7729178, 4779891 #### [facility] [address] [place] [address] Monitor Recordon 11-14-2023 Monitor Record [id number]. 00TIFF [facility] Monitor Record [id number]#1. 00TIFF [facility] Monitor Record [id number]. 00TIFF [facility] Progress Note-Nurseon 2022 Progress Note-Nurse Patient expressed th is morning during medication pass that he was thinking about leaving AMA. DENISE Hong at bedside. This nurse witnessed Gely explain that if he wanted to leave, he would be leaving against her medical advice and be at risk that could potentially lead to his . Furthermore, if patient does decide to leave then comes back, Gely would be more than willing to have him again as a patient. Patient verbalized understanding. Patient stated that he isn't going to leave now, he was just thinking about it. At 1245 patient stated he wanted to officially leave. Patient stated he's just laying in bed and he can do that at home. DENISE Hong was made aware. Patient stated he didn't want to wait for discharge instructions. Patient was told that he is leaving against medical advice which can put his health at risk. Patient verbalized understanding. Patient signed AMA form. IV was removed. Patient is walking to elevator to leave. [facility] Progress Note-Physicianon Progress Note-Physician Patient having asymptomatic bradycardia. Will consult cardio. [facility] Comment on above: Result Comment: Elec tronically Signed By: Lisandra AMARAL DO\.br\Date and Time Signed: 11/14/23 05:07 EST Progress Note-Physician Patient had mentioned during a.m. rounds he was considering leaving AMA but after review of chart, labs, diagnostic testing results, need for IVF in addition to his ongoing nausea requiring IV antiemetics he was willing to stay. At that time I reviewed the concerns of leaving AMA with patient as noted below. Patient has decided to leave AMA Patient has normal mentation status, adequate capacity to make medical decisions, patient refuses to stay, the risk have been explained to the patient including worsening illness, pain, permanent disability and , the benefits of staying have also been explained including availability and proximity to nurses, physicians, monitoring, diagnostic testing and treatment, the patient was able to understand and state the risk and benefits of hospital care, this was witnessed per Jossie Espinoza, patient had the opportunity to ask questions about medical condition, the patient was treated to the extent that was allow and knows that he/she may return for care at any time. Follow-up has been discussed, patient is strongly recommended to return if condition worsens. Pt. has no clinical indications of infectious process that warrants atb to be prescribed at this time. Unfortunately nursing has notified me that patient has changed his mind, signed his AMA forms and is leaving, he is unwilling to wait for discharge paperwork. Dr. Whitley notified. [facility] Comment on above: Result Comment: Elec tronically Signed By: Gely MCALLISTER\.br\Date and Time Signed: 11/14/23 13:07 EST\.br\Electronically Co-Signed By: Yuan Whitley DO.br\Date and Time Co-Signed: 11/14/23 14:27 EST Progress Note-Physician Assessment/Plan 1. Hypokalemia (E87.6: Hypokalemia) Acute on chronic 2/2 GI loss 2/2 colitis -Pt. states he stopped home KCL tx. on his own as he didn't feel he needed it -Replete K/Mag prn -Will need rx. at d/c -Trend labs 2. Bradycardia on ECG (R00.1: Bradycardia, unspecified) Ongoing - 40 - 50 range - asymptomatic -Echo: pending -Consult FT/HV: -Trend trop x 4 sets - pending -TSH/T4 - pending -Lipid panel - pending 3. Elevated WBC count (D72.829: Elevated white blood cell count, unspecified) Ongoing, no fever/chills, cough sputum prod., symptoms of URI/resp. complaints -Flu A&B, COVID Ag - neg -CT A/P: lung bases are clear -UA - no infectious process -See below 4. Gastroenteritis (K52.9: Noninfective gastroenteritis and colitis, unspecified) Hx. of Cdiff colitis i(01/2023) in the setting of chronic alcohol use + diarrhea x 3 days -CT A/P: No acute process, + diverticulosis/no diverticulitis -Cdiff, enteric panel - pending -PPI -Pain mgt. -See below 5. Nausea and vomiting (R11.2: Nausea with vomiting, unspecified) 2/2 above - ongoing this a.m. -05/06/2023 EGD: Gastric erosions, normal duodenum, normal esophagus. -IVF 2L to date, -IV anti-emetic prn -Increase PPI to BID, add carafate QID -Consult GI: pending 6. Acid reflux (K21.9: Gastro-esophageal reflux disease without esophagitis) -PPI 7. Smoker (F17.200: Nicotine dependence, unspecified, uncomplicated) Educated on need for smoking cessation -Nicotine patch if requested 8. History of alcohol abuse (F10.11: Alcohol abuse, in remission) Last use 4 mths ago 9. On deep vein thrombosis (DVT) prophylaxis (Z79.899: Other assisted (current) drug therapy) -Heparin sq with early ambulation Orders: acetaminophen, 650 mg = 2 tab(s), Oral, q6hr, PRN Pain, Refills(s) 0 potassium chloride, 10 mEq = 1 cap(s), Oral, Daily, # 30 cap(s), Refills(s) 0, Pharmacy: [facility]/pharmacy #[id number], 180, cm, 07/18/23 12:20:00 EDT, Height/Length Dosing, 78.8, kg, 07/18/23 12:20:00 EDT, Weight Dosing potassium chloride, 40 mEq = 2 tab(s), Tab-ER, Oral, Once, Stop date 11/14/23 8:00:00 EST, Routine, Start date 11/14/23 8:00:00 EST, 11/14/23 7:34:00 EST sucralfate, 1 gram = 10 mL, Susp-Oral, Oral, QIDACHS, Routine, Start date 11/14/23 11:30:00 EST Communication Order Physician to Nursing Consult to Gastroenterology CT Abdomen/Pelvis w/o Contrast Drug Screen Urine -Plan discussed w/ patient, nursing staff and CRM. This report was transcribed using voice recognition software. Every effort was made to ensure accuracy, however, inadvertently computerized shoemaking cutter mistakes may be present. Subjective No acute events overnight. Patient states he does not feel well this a.m. and is having ongoing nausea but denies vomiting. He denies CP, pressure, palpitations, diarrhea, SOB or paresthesia. Review of Systems -Last BM: 11/13 Additional ROS info: Except as noted in the above Review of Systems and in the History of Present Illness all other systems have been reviewed and are negative or noncontributory. Objective Vitals & Measurements T: 36.7 ?C(Oral) TMIN: 36.5 ?C(Oral) TMAX: 37.3 ?C(Oral) HR: 58(Monitored) RR: 19 BP: 109/59 SpO2: 94% HT: 180.34 cm WT: 82 kg Intake & Output This visit (24 hour periods starting at 07:00 EST) 11/14/23 * 11/13/23 11/12/23 Total Summary Intake mL 12 2,001.25 -- Output mL -- -- -- Fluid Balance 12 2,001.25 -- Intake (6) Generic Diluent, potassium chloride mL -- 100 -- Lactated Ringers Injection mL -- 1,000 -- Sodium Chloride 0.9% intravenous solution 1,000 mL mL -- 895.25 -- famotidine mL -- 2 -- ondansetron mL 2 4 -- sucralfate mL 10 -- -- Total 12 2,001.25 -- Output (0) Counts (0) * This column has not completed the indicated time period. Physical Exam General: Calm, able to communicate needs, Head: Normocephalic/atraumat ic Eyes: Pupils equal, round, Conjunctivae and sclerae normal, HEENT: Mucous membrane moist.Tongue normal Neck: Trachea midline, neck supple, Chest: No chest wall deformity, no chest wall tenderness Lungs: CTA del real Cardio: Normal rate, currently in Sbrady, no edema. Pulses: Normal capillary refill Abdomen: Soft, non-distended, non-tender, normal BS Musculoskeletal: No deformity or scoliosis noted. Integumentary: Warm, dry, Extremity: No clubbing, Neurologic: Alert, oriented x4, follows commands, Mental status: Pleasant & cooperative, approp. affect, Lab Results WBC: 12 E9/L High (11/14/23 05:39:00) RBC: 4.5 E12/L (11/14/23 05:39:00) HGB: 14.1 gm/dL (11/14/23 05:39:00) Hct: 40.2 % (11/14/23 05:39:00) MCV: 89.7 fL (11/14/23 05:39:00) MCH: 31.5 pg (11/14/23 05:39:00) MCHC: 35.1 gm/dL (11/14/23 05:39:00) RDW: 12.7 % (11/14/23 05:39:00) Platelet: 232 E9/L (11/14/23 05:39:00) MPV: 10.1 fL (11/14/23 05:39:00) Neutro Auto: 74.2 % (11/14/23 05:39:00 (more content not included)... [facility] Comment on above: Result Comment: Elec tronically Signed By: Geyl MCALLISTER\.br\Date and Time Signed: 11/14/23 11:19 EST\.br\Electronically Co-Signed By: Yuan Whitley DO\.br\Date and Time Co-Signed: 11/14/23 14:27 EST Troponin 0 Hr.on 11-14-2023 Troponin 3.40 pg/mL Low 15.90-38.40 [facility] Comment on above: Result Comment: The 95% CI (Confidence Interval) PPV (Positive Predictive Value) for myocardial infarction in females is 38 pg/mL, in males 51 pg/mL. The results should be used in conjunction with clinical conditions of myocardial infarction. (Access High Sensitivity Troponin I Instructions For Use, [employer], June 2018) Performed By: #### 1 [id number], [id number], 0303258, 2213125, 04749061, 1588982, 2636582 ####[facility] [address] [place] [address] Troponin 3 Hr.Ordered By: FOLUP on 11-14-2023 Troponin 3.90 pg/mL Low 15.90-38.40 [facility] Comment on above: Interpretive Data: T he 95% CI (Confidence Interval) PPV (Positive Predictive Value) for myocardial infarction in females is 38 pg/mL, in males 51 pg/mL. The results should be used in conjunction with clinical conditions of myocardial infarction. (Access High Sensitivity Troponin I Instructions For Use, [employer], June 2018) Result Comment: The 95% CI (Confidence Interval) PPV (Positive Predictive Value) for myocardial infarction in females is 38 pg/mL, in males 51 pg/mL. The results should be used in conjunction with clinical conditions of myocardial infarction. (Access High Sensitivity Troponin I Instructions For Use, [employer], June 2018) Performed By: #### 1 [id number], [id number], [id number], 2395065, [id number], 0297140, [id number] #### [facility] [address] [place] [address] eGFRon 11-14-2023 GFR/1.73 sq M.predicted among non-blacks MDRD (S/P/Bld) [Vol rate/Area] mL/min/{1.73_m2} Normal >=59 [facility] Comment on above: Order Comment: Order added by Discern Expert. Performed By: #### 1 [id number], [id number], 2134949, 9279770, 97523727, 5809691, [id number] #### [facility] [address] [place] [address] Auto DiffOrdered By: SYSTEM SYSTEM on 11-13-2023 Basophils/100 WBC (Bld) 0.4 % Normal 0.0-2.0 [facility] Comment on above: Order Comment: Order Added by Discern Expert. Performed By: #### 2 [id number], [id number] #### [facility] [address] [place] [address]79 Basophils/Leukocytes Auto (Bld) [Pure # fraction] 0.0 E9/L Normal 0.0-0.2 [facility] Comment on above: Order Comment: Order Added by Discern Expert. Performed By: #### 2 517306, [id number] #### [facility] [address] [place] [address]656 Eosinophils/100 WBC (Bld) 0.4 % Normal 0.0-8.0 [facility] Comment on above: Order Comment: Order Added by Discern Expert. Performed By: #### 2 260104, [id number] #### [facility] [address] [place] [address] 620[address] Eosinophils/Leukocyte s Auto (Bld) [Pure # fraction] 0.1 E9/L Normal 0.0-0.5 [facility] Comment on above: Order Comment: Order Added by Brian Expert. Performed By: #### 2 642103, [id number] #### [facility] [address] [place] [address] 55600 Lymphocytes/100 WBC (Bld) 15.2 % Normal 14.0-50.0 [facility] Comment on above: Order Comment: Order Added by Discern Expert. Performed By: #### 2 632372, [id number] #### [facility] [address] [place] [address] Lymphocytes/Leukocyte s Auto (Bld) [Pure # fraction] 1.9 E9/L Normal 1.0-4.0 [facility] Comment on above: Order Comment: Order Added by Discern Expert. Performed By: #### 2 356228, [id number] #### [facility] [address] [place] [address] Monocytes/100 WBC (Bld) 6.4 % Normal 4.0-14.0 [facility] Comment on above: Order Comment: Order Added by Discern Expert. Performed By: #### 2 666045, [id number] #### [facility] [address] [place] [address] Monocytes/Leukocytes Auto (Bld) [Pure # fraction] 0.8 E9/L Normal 0.2-1.0 [facility] Comment on above: Order Comment: Order Added by Discern Expert. Performed By: #### 2 672707, [id number] #### [facility] [address] [place] [address] 53695 Neutrophils/100 WBC (Bld) 77.6 % High 36.0-75.0 [facility] Comment on above: Order Comment: Order Added by Discern Expert. Performed By: #### 2 155215, [id number] #### [facility] [address] [place] [address] 90084 Neutrophils/Leukocyte s Auto (Bld) [Pure # fraction] 9.6 E9/L High 2.0-7.5 [facility] Comment on above: Order Comment: Order Added by Discern Expert. Performed By: #### 2 001714, [id number] #### [facility] [address] [place] [address]81 BMPOrdered By: SYSTEM SYSTEM on 11-13-2023 Anion gap [Moles/Vol] 15 mmol/L Normal 6-16 Rem isol Chem Comment on above: Performed By: #### 2 695946, [id number] #### [facility] [address] [place] [address]34 Calcium [Mass/Vol] 9.4 mg/dL Normal 8.9-11.1 Remiso l Chem Comment on above: Performed By: #### 2 121074, [id number] #### [facility] [address] [place] [address] 72350 Chloride [Moles/Vol] 91 mmol/L Low 101-111 Ne[facility] id[facility] Chem Comment on above: Performed By: #### 2 601525, [id number] #### [facility] [address] [place] [address] CO2 [Moles/Vol] 33 mmol/L High 21-31 Rem[facility] Chem Comment on above: Performed By: #### 2 374516, [id number] #### [facility] [address] [place] [address] Creatinine [Mass/Vol] 0.9 mg/dL Normal 0.5-1.3 Rem isol Chem Comment on above: Performed By: #### 2 282592, [id number] #### [facility] [address] [place] [address] Glucose [Mass/Vol] 110 mg/dL Normal 55-199 Remiso l Chem Comment on above: Performed By: #### 2 960655, [id number] #### [facility] [address] [place] [address] Potassium [Moles/Vol] 2.6 mmol/L Abnormal 3.5-5.3 Rem isol Chem Comment on above: Result Comment: Crit ical Result Verified by Repeat Analysis Critical Result S_K:2.6 Called to and read back by: ROBERTA LEYVA at: 11/13/2023 11:19:57 by:[email or web address] Result Comment: Crit ical Result Verified by Repeat Analysis Critical Result S_K:2.6 Called to and read back by: ROBERTA LEYVA at: 11/13/2023 11:19:57 by:[id number] Performed By: #### 2 317457, [id number] #### [facility] [address] [place] [address] Sodium [Moles/Vol] 136 mmol/L Normal 135-145 Remiso l Chem Comment on above: Performed By: #### 2 515785, [id number] #### [facility] [address] [place] [address] Urea nitrogen [Mass/Vol] 23 mg/dL High 5-21 Remisol Chem Comment on above: Performed By: #### 2 285800, [id number] #### [facility] [address] [place] [address] BMPon 11-13-2023 BUN/Creat Ratio 26 No Units High 09-13 [facility] Comment on above: Performed By: #### 2 276437, [id number] #### [facility] [address] [place] [address] CBC w/ Auto DiffOrdered By: Bruna Jackson on 11-13-2023 Erythrocyte distribution width (RBC) [Ratio] 12.8 % Normal 10.9-14.2 [facility] Comment on above: Performed By: #### 2 183034, 2374536, 7734116, 8947660, 14622937, 3545731, 3249786, 5377158 ####[facility] [address] [place] [address] Hematocrit (Bld) [Volume fraction] 44.5 % Normal 37.7-49.0 [facility] Comment on above: Performed By: #### 2 096104, 6844639, 4161967, 7264732, 17173579, 9490577, 6514264, 9125336 ####[facility] [address] [place] [address] Hemoglobin (Bld) [Mass/Vol] 15.7 g/dL Normal 13.5-17.5 [facility] Comment on above: Performed By: #### 2 525924, 9341375, 1683930, 8493145, 59076559, 1954190, 4350784, 9625853 ####[facility] [address] [place] [address] MCH (RBC) [Entitic mass] 31.3 pg Normal 27.0-34.0 [facility] Comment on above: Performed By: #### 2 444297, 8950733, 1634132, 7602714, 44290211, 7011137, 7023084, 0740234 ####[facility] [address] [place] [address] MCHC (RBC) [Mass/Vol] 35.3 g/dL Normal 31.4-36.0 [facility] Comment on above: Performed By: #### 2 093351, 5026046, 4751762, 7210300, 97761381, 8587949, 3297096, 4735368 ####[place] [address] MCV (RBC) [Entitic vol] 88.6 fL Normal 80.0-100.0 [facility] Comment on above: Performed By: #### 2 538005, 3189693, 9884172, 9896981, 45945598, 4630751, 8415567, 5866059 ####[place] [address] Platelet mean volume (Bld) [Entitic vol] 9.5 fL Normal 6.4-10.8 [facility] Comment on above: Performed By: #### 2 816980, 7386648, 3965506, 2480920, 75471510, 3225224, 2433425, 4674939 ####[facility] [place] [address]2457 Platelets (Bld) [#/Vol] 251.0 E9/L Normal 150.0-500.0 [facility] Comment on above: Performed By: #### 2 464155, 6481634, 1428736, 6640870, 01390169, 9499455, 3814094, 8076322 ####[facility] [place] [address] RBC (Bld) [#/Vol] 5.0 E12/L Normal 4.3-5.9 [facility] Comment on above: Performed By: #### 2 990373, 7607203, 9954637, 1697045, 96885876, 1503343, 6917959, 8944607 ####[place] [address]69157 WBC corrected for nucl RBC Auto (Bld) [#/Vol] 12.4 E9/L High 4.0-11.0 [facility] Comment on above: Performed By: #### 2 725267, 5213038, 0075035, 1494839, 10882773, 4487057, 7777548, 9404641 ####[facility] [address] [place] [address] CHEMISTRYOrdered By: SYSTEM SYSTEM on 11-13-2023 Alk Phos 36 [iU]/d Normal 21 - 98 Int._Unit/L Remisol Chem ALT 14 [iU]/d Normal 6 - 46 Int._Unit/L Remisol Chem AST 20 [iU]/d Normal 5 - 43 Int._Unit/L Remisol Chem eGFR mL/min/1.73 m2 Normal >=59mL/min/1. 73 m2 Remisol Chem Magnesium [Mass/Vol] 2.2 mg/dL Normal 1.3 - 2.4 mg/dL Remisol Chem Phosphate [Mass/Vol] 4.1 mg/dL Normal 1.9 - 4.6 mg/dL Rem[facility] Chem Urea nitrogen/Creatinine [Mass ratio] 26 mg/mg High 10 - 20 Rem[facility] Chem Consent for Treatmenton 10-26 Consent for Treatment [id number] Normal [facility] ED Clinical Summaryon 2022 ED Clinical Summary [address] [address] ED Clinical Summary Person Information Name: LEANDRO BLACK/[facility] Age: 38 Years : 1985 Sex: Male Language: [place] Citizen PCP: Amber English DO Marital Status: Single Visit Id: Visit Reason: Abdominal pain; Diarrhea; Vomiting; Nausea; VOMITING & DIARRHEA Speciality: Acuity: 3 Enc Type: Observation Med Service: Emergency Arrival: 11/13/2023 09:47:21 Discharge: LOS: 000 04:02 Checkin: 11/13/2023 09:47:21 Checkout: 11/13/2023 13:49:45 Dispo Type: Admitted as IP to this [facility] EVENTS: Event Name Event Status Request Date/Time Start Date/Time Complete Date/Time Arrive Complete 11/13/2023 09:47:21 11/13/2023 09:47:21 11/13/2023 09:47:21 Document Home Meds Complete 11/13/2023 09:47:21 11/13/2023 12:06:06 11/13/2023 12:06:06 Triage Complete 11/13/2023 09:47:21 11/13/2023 10:09:10 11/13/2023 10:09:10 Bed Assign Complete 11/13/2023 10:05:00 11/13/2023 10:05:00 11/13/2023 10:05:00 Dr Exam Complete 11/13/2023 10:05:00 11/13/2023 10:32:44 11/13/2023 10:32:44 RN Exam Complete 11/13/2023 10:05:00 11/13/2023 11:53:21 11/13/2023 11:53:21 Patient Care Request 11/13/2023 10:09:11 Patient Isolation Request 11/13/2023 10:09:11 Isolation Screening Request 11/13/2023 10:09:11 EKG Complete 11/13/2023 10:17:17 11/13/2023 11:02:23 Pending Labs Request 11/13/2023 10:17:17 Lab Request 11/13/2023 10:17:17 Urine Collect Request 11/13/2023 10:17:17 Patient Care Request 11/13/2023 10:17:17 Pending Labs Complete 11/13/2023 10:31:38 11/13/2023 10:31:38 11/13/2023 11:20:03 Lab Complete 11/13/2023 10:31:38 11/13/2023 10:31:38 11/13/2023 11:20:03 Pending Labs Complete 11/13/2023 10:32:27 11/13/2023 10:32:27 11/13/2023 10:32:28 Registration Complete 11/13/2023 10:32:44 11/13/2023 10:42:38 11/13/2023 10:42:38 Pending Labs Complete 11/13/2023 10:34:32 11/13/2023 11:33:43 Swab Complete 11/13/2023 10:34:32 11/13/2023 11:33:25 Lab Complete 11/13/2023 10:34:32 11/13/2023 11:33:43 Dr Exam Complete 11/13/2023 10:34:42 11/13/2023 10:34:42 11/13/2023 10:34:42 Pending Labs Complete 11/13/2023 10:37:15 11/13/2023 10:37:15 11/13/2023 10:37:23 Lab Complete 11/13/2023 10:37:15 11/13/2023 10:37:15 11/13/2023 10:37:23 Reg Complete Request 11/13/2023 10:42:38 Reg Bed Request Complete 11/13/2023 10:42:38 11/13/2023 10:42:38 11/13/2023 10:42:38 Pending Labs Complete 11/13/2023 11:21:40 11/13/2023 11:21:40 11/13/2023 11:33:05 Meds Admin Request 11/13/2023 11:23:45 Meds Admin Complete 11/13/2023 11:25:02 11/13/2023 11:42:18 Bed Request Request 11/13/2023 11:34:23 Reg Bed Request Complete 11/13/2023 11:34:23 11/13/2023 11:50:54 11/13/2023 11:50:54 Admit Request 11/13/2023 11:34:23 Consult Request 11/13/2023 11:35:02 Hospitalist Consult Request 11/13/2023 11:35:02 Pending Labs Inlab 11/13/2023 11:37:52 11/13/2023 11:37:52 Lab Inlab 11/13/2023 11:37:52 11/13/2023 11:37:52 Patient Care Request 11/13/2023 11:50:54 Patient Care Request 11/13/2023 11:50:54 Patient Care Request 11/13/2023 11:50:55 Patient Care Request 11/13/2023 11:50:55 Patient Care Request 11/13/2023 12:34:39 Meds Admin Request 11/13/2023 12:34:39 Pending Labs Request 11/13/2023 12:34:39 Lab Request 11/13/2023 12:34:39 RT Request 11/13/2023 12:34:39 Meds Admin Request 11/13/2023 12:35:22 Pending Labs Request 11/13/2023 12:37:41 ADDRESS: [address] [facility] [id number] PHYS DOC NOTES: MEDICAL INFORMATION: Prescriptions Given: Medications to Continue with No Changes Other Medications famotidine (famotidine 20 mg Tab) 1 Tablets By Mouth at bedtime for 90 Days. Refills: 1. pantoprazole (Pantoprazole [address] Tab) 1 Tablets By Mouth every day for 90 Days. Refills: 1. sildenafil (sildenafil 50 mg Tab) 1 Tablets By Mouth every day as needed for erectile dysfunction. PATIENT EDUCATION INFORMATION: Instructions: Follow up: DIAGNOSIS: 1:Hypokalemia; 2:Colitis; 3:Nausea and vomiting; Acid reflux [facility] ED Note-Physicianon 11-13-20 ED Note-Physician Basic Information Time Seen: Bruna Alvarado PA-C 11/13/2023 10:32 Chief Complaint Pt. came here d/t diarrhea, n/v and abdl pain that started Saturday. Pt was dx with colitis and got hx of low potassium as well. History of Present Illness Patient is 38-year-old male with history of alcohol use disorder (in remission x 4 months), colitis who presents to the ED for evaluation of nausea, vomiting and diarrhea. Patient says he started to feel ill on Saturday and on Saturday he started having vomiting and diarrhea. States he is unable to count how many times he is had vomiting or loose stools in the past 24 hours but he says at least 5 or 10. Endorses blood tinged flecks in his vomit but denies coffee-ground emesis. Denies black or bloody stools, denies recent antibiotic use. Denies chest pain, shortness of breath, heart racing, syncope, dizziness or lightheadedness. Tells me he has history of low potassium. Said he has been getting worked up for his frequent abdominal pain and diarrhea multiple times and was told he had colitis. He said that is why he stopped drinking alcohol and made changes in his diet and he was doing well until this flare started a few days ago. Review of Systems A 10 point review of systems is negative except as noted above. Medical and Surgical History: Reviewed and noted Social history: Lives at home Substance use: Former smoker, former alcohol use, occasionally uses marijuana Physical Exam Vitals & Measurements T: 36.8 ?C(Oral) HR: 78(Peripheral) RR: 18 BP: 120/81 SpO2: 98% HT: 177 cm WT: 82 kg BMI: 26.17 Appearance: Well-developed, nontoxic-appearing, alert and awake. Speaking in complete sentences. Vital signs reviewed, WNL Skin: Warm, dry, intact. Eyes: PERRL. Vision grossly intact. ENT: Buccal mucosa dry. Hearing grossly normal Respiratory: LCTA b/l with normal bilateral excursion. No wheezes, rhonchi, rales. Cardiovascular: RRR, no murmurs. 2+ symmetrical radial and dorsalis pedis pulses. Normal cap refill. No LE edema. Chest wall: Normal chest wall appearance and motion. Abdomen/GI: Soft, nontender, nondistended. No guarding, rigidity, rebound tenderness. NABS x4. Neuro: Alert and awake, speech Clear, cranial nerves grossly intact. No focal neurological deficit observed. Normal sensation to light touch in all 4 extremities. Normal gait. Extremities: No deformity noted on exam. Patient spontaneously moves all 4 extremities. Medical Decision Making Limitations to history: None Nursing Notes: Reviewed and utilized the nursing notes. Previous records reviewed: MDM: Patient is 38-year-old male who presents to the ED for evaluation of nausea, vomiting and diarrhea. Most likely colitis flare given history. Abdomen is soft, nontender, nondistended. Low suspicion for acute intra-abdominal process. Patient had labs drawn prior to being seen by myself. Potassium 2.6. I have ordered a bolus of LR, 40 p.o. with famotidine and Zofran and 40 IV. Have added on magnesium and phosphorus lab draw. Patient has no ECG changes. Spoke with hospitalist and he agrees to accept patient to his care for hypokalemia, continued monitoring, repletion. Patient is agreeable with this Discussions with other providers: Attending Cristian hospitalist slasher hand Appropriate for: Hospitalization Assessment/Plan 1. Hypokalemia (E87.6: Hypokalemia) 2. Colitis (K52.9: Noninfective gastroenteritis and colitis, unspecified) 3. Nausea and vomiting (R11.2: Nausea with vomiting, unspecified) Orders: famotidine, 20 mg = 2 mL, Soln-IV, IV Push, Once, Stop date 11/13/23 11:22:00 EST, STAT, Start date 11/13/23 11:22:00 EST, 11/13/23 11:22:00 EST Lactated Ringers Injection, 1,000 mL, Soln-IV, IV, Once, Stop date 11/13/23 11:21:00 EST, STAT, Start date 11/13/23 11:21:00 EST, Infuse over 61, minute(s) ondansetron, 4 mg = 2 mL, Injection, IV Push, Once, Stop date 11/13/23 11:24:00 EST, STAT, Start date 11/13/23 11:24:00 EST, 11/13/23 11:24:00 EST potassium chloride, 40 mEq = 2 tab(s), Tab-ER, Oral, Once, Stop date 11/13/23 11:22:00 EST, STAT, Start date 11/13/23 11:22:00 EST, 11/13/23 11:22:00 EST potassium chloride + Generic Diluent 100 mL, 20 mEq = 100 mL, IV Piggyback, q2hr for 2 dose(s), Stop date 11/13/23 15:21:00 EST, STAT, Start date 11/13/23 11:22:00 EST, 50 mL/hr, Infuse over 2 hour(s), 11/13/23 11:22:00 EST Add on Test ED Physician consult Hospitalist for continued care Influenza A&B Ag Rapid COVID Antigen ([facility]) Disposition Plan Discharge Prescription List Prescriptions No active prescription medications Follow-up No qualifying data available Attestation This visit was performed by both the physician and an APC. I performed all aspects of the MDM as documented. This report was transcribed using voice recognition software. Every effort was made to ensure accuracy, however, inadvertently computerized shoemaking cutter management be present. Problem List/Past Medical History Ongoing Acid reflux Bleeding per rectu (more content not included)... [facility] Comment on above: Result Comment: Elec tronically Signed By: Bruna Alvarado PA-C\.br\Date and Time Signed: 11/13/23 11:35 EST\.br\Electronically Co-Signed By: Brandyn Foster DO\.br\Date and Time Co-Signed: 11/13/23 15:07 EST ED Patient Education Noteon 11-13-2023 ED Patient Education Note Normal [facility] ED Patient Summaryon 023 ED Patient Summary [place] [id number] Patient Discharge Instructions Person Information Name: LEANDRO BLACK Age: 38 Years Arrival Date: 11/13/2023 09:47:21 Discharge Diagnosis: 1:Hypokalemia; 2:Colitis; 3:Nausea and vomiting; Acid reflux Primary Care Physician: Amber English DO Provider Information Primary Provider: Brandyn Foster DO [facility] Counsel[facility] Aide:Bruna Alvarado PA-C The exam and treatment you received in the Emergency Department were for an urgent problem and are not intended as complete care. It is important that you follow up with a doctor, nurse practitioner, or physician?s assistant athletic trainer for ongoing care. If your symptoms become worse or you do not improve as expected and you are unable to reach your usual health care provider, you should return to the Emergency Department. We are available 24 hours a day. LEANDRO BLACK has been given the following list of patient education materials, prescriptions and follow-up instructions: Follow-up Instructions: In the event that this physician does not participate in your insurance network, please consult with your insurance company to find a nearby participating provider. Patient Education Materials: A MESSAGE TO ALL PATIENTS REGARDING OPIOIDS PRESCRIPTION OPIOIDS: WHAT YOU NEED TO KNOW Prescription opioids can be used to help relieve iqvqchiq-hp-pnjgnw pain and are often prescribed following a surgery or injury, or for certain health conditions. These medications can be an important part of the treatment but also come with serious risks. It is important to work with your healthcare provider to make sure you are getting the safest, most effective care. WHAT ARE THE RISKS AND SIDE EFFECTS OF OPIOID USE? Prescription opioids carry serious risks of addiction and overdose, especially with prolonged use. An opioid overdose, often marked by slowed breathing, can cause sudden . The use of prescription opioids can have a number of side effects as well, even when taken as directed: ? Tolerance?meaning you might need to take more of the medication for the same pain relief ? Physical dependence?meaning you have symptoms of withdrawal when a medication is stopped ? Increased sensitivity to pain ? Constipation ? Nausea, vomiting, and dry mouth ? Sleepiness and dizziness ? Confusion ? Depression ? Low levels of testosterone that can result in lower sex drive, energy, and strength ? Itching and sweating RISKS ARE GREATER WITH: ? History of drug misuse, substance use disorder, or overdose ? Mental health conditions (such as depression or anxiety) ? Sleep apnea ? Older age (65 years and older) ? Avoid alcohol while taking prescription opioids. Also, unless specifically advised by your health care provider, medications to avoid include: ? Benzodiazepines (such as Xanax or Valium) ? Muscle relaxants (such as Soma or Flexeril) ? Hypnotics (such as Ambien or Lunesta) ? Other prescription opioids KNOW YOUR OPTIONS Talk to your health care provider about ways to manage your pain that don?t involve prescription opioids. Some of these options may actually work better and have fewer risks and side effects. Options may include: ? Pain relievers such as acetaminophen, ibuprofen, and naproxen ? Some medication that are also used for depression or seizures ? Physical therapy and exercise ? Cognitive behavioral therapy, a psychological, goal-directed approach, in which patients learn how to modify physical, behavioral, and emotional triggers of pain and stress. IF YOU ARE PRESCRIBED OPIOIDS FOR PAIN: ? Never take opioids in greater amounts or more often than prescribed. ? Follow up with your primary health care provider. o Work together to create a plan on how to manage your pain. o Talk about ways to help manage your pain that don?t involve prescription opioids. o Talk about any and all concerns and side effects. ? Help prevent misuse and abuse o Never sell or share prescription opioids. o Never use another person?s prescription opioids. ? Store prescription opioids in a secure place and out of reach of others (this may include visitors, children, friends, and family). ? Safely dispose of unused prescription opioids: Find your community drug take-back program or your pharmacy mail-back program, or flush them down the toilet, following guidance from the Food and Drug Administration (www.fda.gov/Drugs/Res ourcesForYou). ? Visit www.cdc.gov/drugoverdo se to learn about the risks of opioids abuse and overdose. ? If you believe you may be struggling with addiction, tell your health toddler caregiver and ask for guidance or call [facility]?S National Helpline at 1-854-977-UDAO. s Source: [place] Department of Health and Human Services/Center for Disease Control & Prevention [facility] (more content not included)... [facility] Hep Func PanelOrdered By: [employer] SYSTEM on 11-13-2023 Albumin [Mass/Vol] 4.9 g/dL Normal 3.3-5.0 Remiso l Chem Comment on above: Performed By: #### 2 [id number], [id number] #### [facility] [address] [place] [address] Albumin/Globulin [Mass ratio] 1.5 {ratio} Normal 1.1-2.2 Remisol Chem Comment on above: Performed By: #### 2 408063, [id number] #### [facility] [address] [place] [address] Bili Direct 0.1 mg/dL Normal 0.0-0.4 Remisol Chem Comment on above: Performed By: #### 2 665249, [id number] #### [facility] [address] [place] [address] Bili Indirect 0.7 mg/dL Normal 0.1-0.9 Remisol Chem Comment on above: Performed By: #### 2 584580, [id number] #### [facility] [address] [place] [address] Bili Total 0.8 mg/dL Normal 0.0-1.1 Remisol Chem Comment on above: Performed By: #### 2 135192, [id number] #### [facility] [address] [place] [address] Globulin (S) [Mass/Vol] 3.2 g/dL Normal 1.4-4.0 Remisol Chem Comment on above: Performed By: #### 2 151468, [id number] #### [facility] [address] [place] [address] Protein [Mass/Vol] 8.1 g/dL High 6.0-7.8 Remiso l Chem Comment on above: Performed By: #### 2 810719, [id number] #### [facility] [address] [place] [address] Hep Func Panelon 11-13-2023 Alk Phos 36 Int._Unit/L Normal 21-98 [facility] Comment on above: Performed By: #### 2 109055, [id number] #### [facility] [address] [place] [address] ALT 14 Int._Unit/L Normal 6-46 [facility] Comment on above: Performed By: #### 2 [id number], [id number] #### [facility] [address] [place] [id number] AST 20 Int._Unit/L Normal 5-43 [facility] Comment on above: Performed By: #### 2 [id number], [id number] #### [facility] [address] [place] [address] Influenza A&B Agon 3 Influenzae A Ag Negative Normal Negative [facility] Comment on above: Performed By: #### 2 [id number] ####[facility] [address] [place] [address] Influenzae B Ag Negative Normal Negative [facility] Comment on above: Result Comment: Test sensitivity and specificity vary for age group, specimen type, antigen types, and prevalence of disease. Test results must be evaluated in conjunction with other clinical data available to the physician. Individuals who received nasally administered Influenza A vaccine may have positive test results up to 3 days after vaccination. Performed By: #### 2 [id number] ####[facility] [address] [place] [address] Lipase LevelOrdered By: SYST EM SYSTEM on 11-13-2023 Lipase Lvl 13 unit/L Normal 13-58 [facility] Comment on above: Performed By: #### 2 [id number], [id number] #### [facility] [address] [place] [address] MICRO OTHER TESTSOrdered By: Jemma Gates on 11-13-2023 Influenzae A Ag Negative (11/13/23 11:01 AM) Normal Negative [facility] Man Sero Influenzae B Ag Negative 1 (11/13/23 11:01 AM) Normal Negative [facility] Comment on above: Interpretive Data: T est sensitivity and specificity vary for age group, specimen type, antigen types, and prevalence of disease. Test results must be evaluated in conjunction with other clinical data available to the physician. Individuals who received nasally administered Influenza A vaccine may have positive test results up to 3 days after vaccination. Rapid COV Int NEG Ctl Pass (11/13/23 11:01 AM) Normal [facility] Sero Rapid COV Int POS Ctl Pass (11/13/23 11:01 AM) Normal [facility] SARS-CoV+SARS-CoV-2 (COVID-19) Ag IA.rapid Ql (Resp) Not Detected 5 (11/13/23 11:01 AM) Normal Not Detected [facility] Comment on above: Interpretive Data: T he Psykosoft Veritor System for Rapid Detection of SARS-CoV-2 is a chromatographic digital immunoassay intended for the direct and qualitative detection of SARS-CoV-2 nucleocapsid antigens in nasal swabs from individuals who are suspected of COVID-19 by their healthcare provider within the first five days of the onset of symptoms. Negative results should be treated as presumptive, do not rule out SARS-CoV-2 infection and should not be used as the sole basis for treatment or patient management decisions, including infection control decisions. Negative results should be considered in the context of a patient s recent exposures, history and the presence of clinical signs and symptoms consistent with COVID-19, and confirmed with a molecular assay, if necessary, for patient management. For in vitro diagnostic use. In the [place], only for use under an Emergency Use Authorization. In the [place], this test has not been FDA cleared or approved; this test has been authorized by FDA under an EUA for use by authorized laboratories; use by laboratories certified under the CLIA, 42 U.S.C. 263a, that meet requirements to perform moderate, high, or waived complexity tests and at the Point of Care (POC), i.e., in patient care settings operating under a CLIA Certificate of Waiver, Certificate of Compliance, or Certificate of Accreditation. This test has been authorized only for the detection of proteins from SARS-CoV-2, not for any other viruses or pathogens; and, in the [facility], this test is only authorized for the duration of the declaration that circumstances exist justifying the authorization of emergency use of in vitro diagnostics for detection and/or diagnosis of the virus that causes COVID-19 under Section 564(b)(1) of the Act, 21 U.S.C. 360bbb-3(b)(1), unless the authorization is terminated or revoked sooner. Magnesiumon 11-13-2023 Magnesium [Mass/Vol] 2.2 mg/dL Normal 1.3-2.4 [facility] Comment on above: Performed By: #### 2 [id number], [id number] #### [facility] [address] [place] [address] Monitor Recordon 11-13-2023 Monitor Record [id number]#1. 00TIFF Normal [facility] Monitor Record [id number]#1. 00TIFF Normal [facility] Phosphoruson 11-13-2023 Phosphate [Mass/Vol] 4.1 mg/dL Normal 1.9-4.6 [facility] Comment on above: Performed By: #### 2 [id number], [id number] #### [facility] [address] [place] [address] PotassiumOrdered By: SYSTEM SYSTEM on 11-13-2023 Potassium [Moles/Vol] 3.1 mmol/L Low 3.5-5.3 Rem isol Chem Comment on above: Performed By: #### 1 [id number] #### [facility] [address] [place] [address] Rapid COVID Antigen ([facility])on 11-13-2023 Rapid COV Int NEG Ctl Pass Normal Fis [facility] Comment on above: Performed By: #### 2 [id number], [id number] ####[facility] [address] [place] [address] Rapid COV Int POS Ctl Pass Normal [facility] Comment on above: Performed By: #### 2 [id number], [id number] ####[facility] [address] [place] [address] SARS-CoV+SARS-CoV-2 (COVID-19) Ag IA.rapid Ql (Resp) Not detected Normal Not Detected [facility] Comment on above: Result Comment: The Tricida System for Rapid Detection of SARS-CoV-2 is a chromatographic digital immunoassay intended for the direct and qualitative detection of SARS-CoV-2 nucleocapsid antigens in nasal swabs from individuals who are suspected of COVID-19 by their healthcare provider within the first five days of the onset of symptoms. Negative results should be treated as presumptive, do not rule out SARS-CoV-2 infection and should not be used as the sole basis for treatment or patient management decisions, including infection control decisions. Negative results should be considered in the context of a patient?s recent exposures, history and the presence of clinical signs and symptoms consistent with COVID-19, and confirmed with a molecular assay, if necessary, for patient management. For in vitro diagnostic use. In the [place], only for use under an Emergency Use Authorization. In the [place], this test has not been FDA cleared or approved; this test has been authorized by FDA under an EUA for use by authorized laboratories; use by laboratories certified under the CLIA, 42 U.S.C. ?263a, that meet requirements to perform moderate, high, or waived complexity tests and at the Point of Care (POC), i.e., in patient care settings operating under a CLIA Certificate of Waiver, Certificate of Compliance, or Certificate of Accreditation. This test has been authorized only for the detection of proteins from SARS-CoV-2, not for any other viruses or pathogens; and, in the [facility], this test is only authorized for the duration of the declaration that circumstances exist justifying the authorization of emergency use of in vitro diagnostics for detection and/or diagnosis of the virus that causes COVID-19 under Section 564(b)(1) of the Act, 21 U.S.C. ? 360bbb-3(b)(1), unless the authorization is terminated or revoked sooner. Performed By: #### 2 [id number], [id number] ####[address] [address] UA With Cult Reflexon 2022 Bacteria LM Ql (Urine sed) TRACE Normal Trace [facility] Comment on above: Performed By: #### 1 [id number] ####[address] [address] Bilirubin Ql (U) Negative Normal Negative [facility] Comment on above: Performed By: #### 1 [id number] ####[address] [address] Clarity (U) CLEAR Normal Clear [facility] Comment on above: Performed By: #### 1 [id number] ####[address] [address] Color (U) YELLOW Normal Yellow [facility] Comment on above: Performed By: #### 1 [id number] ####[address] [address] Crystals LM Ql (Urine sed) Present Normal [facility] Comment on above: Performed By: #### 1 [id number] ####[address] [address] Epithelial cells.squamous LM.HPF (Urine sed) [#/Area] 0-2 Normal 0-2 [facility] Comment on above: Performed By: #### 1 [id number] ####[address] [address] Glucose Test strip (U) [Mass/Vol] Negative Normal Negative [facility] Comment on above: Performed By: #### 1 [id number] ####[facility] [address] [place] [address] Hemoglobin Ql (U) Negative Normal Negative [facility] Comment on above: Performed By: #### 1 [id number] ####[address] [address] Ketones (U) [Mass/Vol] TRACE Abnormal Negative [facility] Comment on above: Performed By: #### 1 [id number] ####[address] [address] Holden.plasma/Lithiu m.RBC (Bld) [Mass ratio] 0-3 Normal 0-3 [facility] Comment on above: Performed By: #### 1 [id number] ####[address] [address] Nitrite Ql (U) Negative Normal Negative [facility] Comment on above: Performed By: #### 1 [id number] ####[address] [address] pH (U) 7.0 [pH] Invalid Interpretation Code 5.0-9.0 [facility] Comment on above: Performed By: #### 1 [id number] ####[address] [address] Protein (U) [Mass/Vol] 1+ Abnormal Negative [facility] Comment on above: Performed By: #### 1 [id number] ####[address] [address] Specific gravity (U) [Rel density] 1.020 Invalid Interpretation Code 1.005-1.030 [facility] Comment on above: Performed By: #### 1 [id number] ####[address] [address] Type of Urine collection method Clean Catch Normal [facility] Comment on above: Performed By: #### 1 [id number] ####[address] [address] Urobilinogen Qn (U) 1.0 {Anya'U}/dL Normal 0.0-1.0 [facility] Comment on above: Performed By: #### 1 [id number] ####[facility] [address] [place] [address] WBC Auto Ql (U) Negative Normal Negative [facility] Comment on above: Performed By: #### 1 [id number] ####[facility] [address] [place] [address] WBC LM.HPF (Urine sed) [#/Area] 0-5 Normal 0-5 [facility] Comment on above: Performed By: #### 1 [id number] ####[facility] [address] [place] [address] URINALYSISOrdered By: Norma Manzano on 11-13-2023 Bacteria LM Ql (Urine sed) Trace /HPF Normal Trace/HPF [facility] UA Auto SS Bilirubin Ql (U) Negative (11/13/23 2:38 PM) Normal Negative [facility] UA Auto SS Clarity (U) Clear (11/13/23 2:38 PM) Normal Clear [facility] UA Auto SS Color (U) Yellow (11/13/23 2:38 PM) Normal Yellow [facility] UA Auto SS Crystals LM Ql (Urine sed) Present (11/13/23 2:38 PM) Normal [facility] UA Auto SS Epithelial cells.squamous LM.HPF (Urine sed) [#/Area] 0-2 /HPF Normal 0-2/HPF [facility] UA Auto SS Glucose Test strip (U) [Mass/Vol] Negative (11/13/23 2:38 PM) Normal Negative [facility] UA Auto SS Hemoglobin Ql (U) Negative (11/13/23 2:38 PM) Normal Negative [facility] UA Auto SS Ketones (U) [Mass/Vol] Trace *ABN* (11/13/23 2:38 PM) Invalid Interpretation Code Negative [facility] UA Auto SS Holden.plasma/Lithiu m.RBC (Bld) [Mass ratio] 0-3 /HPF Normal 0-3/HPF [facility] UA Auto SS Nitrite Ql (U) Negative (11/13/23 2:38 PM) Normal Negative [facility] UA Auto SS pH (U) 7.0 *NA* (11/13/23 2:38 PM) Invalid Interpretation Code 5.0 - 9.0 [facility] UA Auto SS Protein (U) [Mass/Vol] 1+ *ABN* (11/13/23 2:38 PM) Invalid Interpretation Code Negative [facility] UA Auto SS Specific gravity (U) [Rel density] 1.020 *NA* (11/13/23 2:38 PM) Invalid Interpretation Code 1.005 - 1.030 [facility] UA Auto SS UA Spec Desc Clean Catch (11/13/23 2:38 PM) Normal [facility] UA Auto SS Urobilinogen Qn (U) 1.3227927 {Anya'U}/dL Normal 0.0 - 1.0 EU/dL FT UA Auto SS WBC Auto Ql (U) Negative (11/13/23 2:38 PM) Normal Negative [facility] UA Auto SS WBC LM.HPF (Urine sed) [#/Area] 0-5 /HPF Normal 0-5/HPF [facility] UA Auto SS eGFRon 11-13-2023 GFR/1.73 sq M.predicted among non-blacks MDRD (S/P/Bld) [Vol rate/Area] mL/min/{1.73_m2} Normal >=59 [facility] Comment on above: Order Comment: Order added by Discern Expert. Performed By: #### 2 [id number], [id number] #### [facility] [address] [place] [address] Ambulatory Visit Summaryon 1 Ambulatory Visit Summary LEANDRO BLACK :1985 Visit Date:08/27/2023 Ambulatory Visit Instructions Your Diagnosis Acid reflux Globus sensation Nausea and vomiting History of colon polyps Your Care Team Attending Physician - Cyndee Snell CNP Primary Care Physician - Amber English DO This Is Your Medications List famotidine (famotidine 20 mg Tab) pantoprazole (Pantoprazole [address] Tab) Contact prescribing physician if questions or concerns acetaminophen (acetaminophen 325 mg Tab) potassium chloride (potassium chloride 10 mEq Cap-ER) Procedures Performed Colonoscopy (05/06/2023), Esophagogastroduodenos copy (05/06/2023), Vasectomy (01/11/2022), Laparoscopic repair of incisional hernia (03/13/2021), History of lumbar fusion (02/24/2020), Colonoscopy (06/01/2019), Esophagogastroduodenos copy (06/01/2019), Colonoscopy. Discharge Vitals Temperature (Temporal Artery) 36.5 ?C Heart Rate (Peripheral) 85 Blood Pressure 113/78 Height 180 cm Height 71 in Weight 83.9 kg Weight 184.58 lb BMI 25.9 What to do next You Need to Schedule the Following Appointments Follow Up with Cyndee Snell CNP When: Within 3 months Where: You Need to Complete the Following XR Esophagus, 08/27/23, Routine, Order for future visit, Transport Mode: Ambulatory, Reason: Other (please specify), Reason: globus sensation., No, Globus sensation, pp_set_radiology_subsp ecialty, [facility] Medications What How Much When Why Instructions Changed famotidine (famotidine 20 mg Tab) 1 Tablets By Mouth At bedtime Acid reflux Duration: 90 Days Pickup at [facility]/pharmacy #[id number] Changed pantoprazole (Pantoprazole [address] Tab) 1 Tablets By Mouth Every day Acid reflux Duration: 90 Days Pickup at [facility]/pharmacy #[id number] Unchanged acetaminophen (acetaminophen 325 mg Tab) 2 Tablets By Mouth Every 6 hours as needed for Pain Contact prescribing physician if questions or concerns Unchanged potassium chloride (potassium chloride 10 mEq Cap-ER) 1 Capsules By Mouth Every day Contact prescribing physician if questions or concerns Pharmacy Information [facility]/pharmacy #[id number]: [address] [place], [place] [id number] [phone] Medications and Immunizations Administered Not Given influenza virus vaccine, inactivated, Patient Refuses Allergies No Known Medication Allergies Problems Ongoing - Any problem that you are currently receiving treatment for. Acid reflux Bleeding per rectum BMI 29.0-29.9,adult Colon polyps Encounter for vasectomy Gastric erosions Globus sensation Hemorrhoids History of colon polyps Nausea and vomiting Right inguinal hernia Smoker Historical - Any problem that you are no longer receiving treatment for. Abdominal pain Colitis, Clostridium difficile Diarrhea Epigastric pain Melena Nausea None Education Materials High-Fiber Eating Plan Fiber, also called dietary fiber, is a type of carbohydrate. It is found foods such as fruits, vegetables, whole grains, and beans. A high-fiber diet can have many health benefits. Your health care provider may recommend a high-fiber diet to help: ? Prevent constipation. Fiber can make your bowel movements more regular. ? Lower your cholesterol. ? Relieve the following conditions: ? Inflammation of veins in the anus (hemorrhoids). ? Inflammation of specific areas of the digestive tract (uncomplicated diverticulosis). ? A problem of the large intestine, also called the colon, that sometimes causes pain and diarrhea (irritable bowel syndrome, or IBS). ? Prevent overeating as part of a weight-loss plan. ? Prevent heart disease, type 2 diabetes, and certain cancers. What are tips for following this plan? Reading food labels ? Check the nutrition facts label on food products for the amount of dietary fiber. Choose foods that have 5 grams of fiber or more per serving. ? The goals for recommended daily fiber intake include: ? Men (age 50 or younger): 34?38 g. ? Men (over age 50): 28?34 g. ? Women (age 50 or younger): 25?28 g. ? Women (over age 50): 22?25 g. Your daily fiber goal is g. Shopping ? Choose whole fruits and vegetables instead of processed forms, such as apple juice or applesauce. ? Choose a wide variety of high-fiber foods such as avocados, lentils, oats, and kidney beans. ? Read the nutrition facts label of the foods you choose. Be aware of foods with added fiber. These foods often have high sugar and sodium amounts per serving. Cooking ? Use whole-grain flour for baking and cooking. ? Cook with brown rice instead of white rice. Meal planning ? Start the day with a breakfast that is high in fiber, such as a cereal that contains 5 g of fiber or more per serving. ? Eat breads and cereals that are made with whole-grain flour instead of refined flour or white flour. ? Eat brown rice, bulgur wheat, or millet instead (more content not included)... Normal [facility] Gastroenterology Office/Clin ic Noteon 08-27-2023 Gastroenterology Office/Clinic Note Chief Complaint Follow up to review test results. HPI Staff This is a 38 year old male who presents today for a follow-up from 07/25/23 and [facility]. History of Present Illness Patient is a 38-year-old male who presents for follow-up. Patient was previously evaluated 07/25/[address] scan 04/2023 that showed colitis. Patient had been previously evaluated by Dr. Asencio 01/2023 and was previously treated for C. difficile infection with vancomycin. Patient previously reported he drinks 30 beers a week over the last 20 years. Patient was educated to limit alcohol use and follow-up with PCP regarding decreasing alcohol use. Patient had previous ultrasound of RUQ that was unremarkable 05/2023. Patient had previously reported epigastric pain described as achy over the last 2 years that was occurring nearly every day with associated nausea and vomiting. He had reported during visit 06/2023 that he was drinking 6 beers 2 times a week and was trying to cut down on alcohol use. Previous labs 07/18/2023 revealed low potassium of 2.8?I had personally spoken with patient at that time and advised to be further evaluated/treated in ED as he would likely require IV potassium supplementation. He also had reported at that time feeling sick and dehydrated. Patient was evaluated in the ED 07/18/2023 and was given oral and IV potassium and admitted to hospital. During his hospitalization, he was treated for hyponatremia, hypokalemia, nausea and vomiting with diarrhea, dysphagia and acid reflux. Patient was given GI cocktail and PPI twice daily. Note during hospitalization indicated patient with possible cyclic vomiting and urine drug screen was positive for barbiturates and cannabis. Patient was discharged from hospital with pantoprazole 20 mg twice daily and famotidine 20 mg at bedtime. Patient reported during visit with me 07/25/2023 that he was no longer having nausea and vomiting. He also reported he was no longer having diarrhea. He indicated having acid reflux over the last week and was taking pantoprazole 40 mg twice daily and Pepcid 20 mg at bedtime with Tums as needed. He reported using marijuana 2 times a month for years and had cut down on use of marijuana over the last 3 to 4 months. He also previously reported during visit that he had not drank alcohol in 2 weeks and was following with his PCP regarding. Patient was ordered MRCP previously and advised to complete. Previous labs 07/19/2023 revealed normal H&H, labs 07/22/2023 revealed normal BUN, normal creatinine, potassium slightly low at 3.4. MRCP 07/25/2023 was essentially negative. EGD completed 05/06/2023 revealed normal esophagus, moderate gastric erosions, normal duodenum, duodenal biopsy within normal limits, stomach biopsy revealed inactive gastritis, negative for intestinal metaplasia, negative for H. pylori?Dr. Asencio recommended for patient to avoid NSAIDs and alcohol. Colonoscopy completed 05/06/2023 revealed normal terminal ileum, normal colonic mucosa, 2 tubular adenomas removed from transverse colon, hemorrhoids?Dr. Asencio recommended for patient to have repeat colonoscopy in 7 years?2029. During today's visit, patient reports acid reflux is well-controlled with pantoprazole 40mg BID. Is not pepcid at bedtime. He explains he has not taken since last visit. He explains he ran out of pepcid and explains he was uncertain whether or not to continue pepcid. He explains nausea and vomiting has improved and is occurring less often. He explains he is currently having nausea and vomiting 1-2 times a month. Has chills with N/V. Is having 1 formed BM every other day. Patient reports he has not drank ETOH since end of 06/2023- educated to ensure he follows with his PCP regarding. He reports having feeling like something is stuck in his throat over the last 2 weeks that has improved. Denies dysphagia, black/bloody stools, fevers, and denies unintentional weight loss. Denies having any other GI complaints. Review of Systems ROS - Provider Constitutional: no fever, no chills. Skin: no Jaundice. ENMT: Denies dysphagia and heartburn. Respiratory: no shortness of breath. Cardiovascular: no chest pain. Gastrointestinal: no nausea, no vomiting, no diarrhea, no GI bleeding. Physical Exam Vitals & Measurements T: 36.5 ?C(Temporal Artery) HR: 85(Peripheral) BP: 113/78 HT: 71 in HT: 180 cm WT: 83.9 kg WT: 184.58 lb BMI: 25.9 General: Well developed, well nourished, in no acute distress Head: Normocephalic/atraumat ic Lungs: Normal respiratory effort and clear to auscultation Cardio: Regular rate and rhythm, normal S1 and S2, no murmur, no rub Abdomen: Soft, non-distended, non-tender. Normoactive bowel sounds present in all 4 abdominal quadrants, bilaterally. Mental Status: Alert and oriented x3. Normal mood and affect Assessment/Plan 1. Acid reflux (K21.9: Gastro-esophageal reflux disease without esophagitis) Controlled. EGD completed 05/06/2023 revealed normal esophagus, moderate gastric erosions, normal duodenum, d (more content not included)... Normal [facility] Comment on above: Result Comment: Elec tronically Signed By: Cyndee Snell CNP\.zach\Date and Time Signed: 08/27/23 08:56 EDT Patient Educationon 08-27-20 Patient Education Gastroenterology High-Fiber Eating Plan Fiber, also called dietary fiber, is a type of carbohydrate. It is found foods such as fruits, vegetables, whole grains, and beans. A high-fiber diet can have many health benefits. Your health care provider may recommend a high-fiber diet to help: ? Prevent constipation. Fiber can make your bowel movements more regular. ? Lower your cholesterol. ? Relieve the following conditions: ? Inflammation of veins in the anus (hemorrhoids). ? Inflammation of specific areas of the digestive tract (uncomplicated diverticulosis). ? A problem of the large intestine, also called the colon, that sometimes causes pain and diarrhea (irritable bowel syndrome, or IBS). ? Prevent overeating as part of a weight-loss plan. ? Prevent heart disease, type 2 diabetes, and certain cancers. What are tips for following this plan? Reading food labels ? Check the nutrition facts label on food products for the amount of dietary fiber. Choose foods that have 5 grams of fiber or more per serving. ? The goals for recommended daily fiber intake include: ? Men (age 50 or younger): 34?38 g. ? Men (over age 50): 28?34 g. ? Women (age 50 or younger): 25?28 g. ? Women (over age 50): 22?25 g. Your daily fiber goal is g. Shopping ? Choose whole fruits and vegetables instead of processed forms, such as apple juice or applesauce. ? Choose a wide variety of high-fiber foods such as avocados, lentils, oats, and kidney beans. ? Read the nutrition facts label of the foods you choose. Be aware of foods with added fiber. These foods often have high sugar and sodium amounts per serving. Cooking ? Use whole-grain flour for baking and cooking. ? Cook with brown rice instead of white rice. Meal planning ? Start the day with a breakfast that is high in fiber, such as a cereal that contains 5 g of fiber or more per serving. ? Eat breads and cereals that are made with whole-grain flour instead of refined flour or white flour. ? Eat brown rice, bulgur wheat, or millet instead of white rice. ? Use beans in place of meat in soups, salads, and pasta dishes. ? Be sure that half of the grains you eat each day are whole grains. General information ? You can get the recommended daily intake of dietary fiber by: ? Eating a variety of fruits, vegetables, grains, nuts, and beans. ? Taking a fiber supplement if you are not able to take in enough fiber in your diet. It is better to get fiber through food than from a supplement. ? Gradually increase how much fiber you consume. If you increase your intake of dietary fiber too quickly, you may have bloating, cramping, or gas. ? Drink plenty of water to help you digest fiber. ? Choose high-fiber snacks, such as berries, raw vegetables, nuts, and popcorn. What foods should I eat? Fruits Berries. Pears. Apples. Oranges. Avocado. Prunes and raisins. Dried figs. Vegetables Sweet potatoes. Spinach. Kale. Artichokes. Cabbage. Broccoli. Cauliflower. Green peas. Carrots. Squash. Grains Whole-grain breads. Multigrain cereal. Oats and oatmeal. Brown rice. Barley. Bulgur wheat. Millet. Quinoa. Bran muffins. Popcorn. Mabie wafer crackers. Meats and other proteins [place] beans, kidney beans, and corado beans. Soybeans. Split peas. Lentils. Nuts and seeds. Dairy Fiber-fortified yogurt. Beverages Fiber-fortified soy milk. Fiber-fortified orange juice. Other foods Fiber bars. The items listed above may not be a complete list of recommended foods and beverages. Contact a dietitian for more information. What foods should I avoid? Fruits Fruit juice. Cooked, strained fruit. Vegetables Fried potatoes. Canned vegetables. Well-cooked vegetables. Grains White bread. Pasta made with refined flour. White rice. Meats and other proteins Fatty cuts of meat. Fried chicken or fried fish. Dairy Milk. Yogurt. Cream cheese. Sour cream. Fats and oils [place]. Beverages Soft drinks. Other foods Cakes and pastries. The items listed above may not be a complete list of foods and beverages to avoid. Talk with your dietitian about what choices are best for you. Summary ? Fiber is a type of carbohydrate. It is found in foods such as fruits, vegetables, whole grains, and beans. ? A high-fiber diet has many benefits. It can help to prevent constipation, lower blood cholesterol, aid weight loss, and reduce your risk of heart disease, diabetes, and certain cancers. ? Increase your intake of fiber gradually. Increasing fiber too quickly may cause cramping, bloating, and gas. Drink plenty of water while you increase the amount of fiber you consume. ? The best sources of fiber include whole fruits and vegetables, whole grains, nuts, seeds, and beans. This information is not intended to replace advice given to you by your health care provider. Make sure you discuss any questions you have with your health care provider. Document Revised: (more content not included)... [facility] Provider Letteron 08-27-2023 Provider Letter August 27, 2023 LEANDRO RAYAWLER [id number] [facility] [address] [place] [id number] : 1985 To Whom It May Concern, Please excuse above patient from work. Date of Appointment: August 27, 2023 May Return to Work On: August 28, 2023 Sincerely, [facility] [phone] [facility] MRI Cholangiogram Pancreatog onofre (mrcp)on 07-27-2023 MRI Cholangiogram Pancreatography (mrcp) Exam Date/Time: 07/25/2023 09:08 EDT Reason for Exam: epigastric pain;Other (please specify) Report IMPRESSION: ESSENTIALLY NEGATIVE MILDLY LIMITED MRCP. EXAM: MRI Cholangiogram Pancreatography (MRCP) DATE: 07/25/2023 9:06 AM CLINICAL HISTORY: epigastric pain. COMPARISON: RU US 05/29/2023 TECHNIQUE: Multiplanar MR imaging of the abdomen was performed with MRCP protocol. Routine and volume rendered images were obtained on a three-dimensional workstation. FINDINGS: Motion artifact limits the study, with sequences repeated. An approximately 6 to 7 mm cyst is noted within the left lobe of an otherwise unremarkable-appearing liver (image 15 - T2 axial series 5). The gallbladder, pancreas, biliary and pancreatic ducts are unremarkable. The common duct measures approximately 2 to 3 mm in caliber at the libby hepatis. There is no ascites, significant inflammatory changes, abnormal bowel dilatation, or other findings of concern identified. The adrenal glands, kidneys, spleen, visualized great vessels and bowel loops are unremarkable. Ordering Provider: , FINAL REPORT Dictated: 07/27/2023 3:18 pm Raji Ventura MD Signed (Electronic Signature): 07/27/2023 3:18 pm Signed by: Raji Ventura MD Transcribed by: ANSLEY Technologist: DARSHAN [facility] Consent for Treatmenton 06-27 Consent for Treatment [id number] 0CD:127 [facility] Gastroenterology Office/Clin ic Noteon 07-25-2023 Gastroenterology Office/Clinic Note Chief Complaint ER follow-up for nausea, vomiting and diarrhea. Patient states that he has improved. HPI Staff This is a 38 year old male who presents today for a follow-up [facility] ER on 07/18/23, for complaints of nausea & vomiting and diarrhea. History of Present Illness Patient is a 38-year-old male who presents for follow-up from inpatient stay 07/18/2023. Patient was previously evaluated 07/11/[address] scan 04/2023 that showed colitis. Patient was previously evaluated by Dr. Asencio 01/2023 for abdominal pain, diarrhea, and vomiting. Patient was previously treated for C. difficile infection with vancomycin. Patient had previously reported during visit with ks 04/2023 that he was experiencing epigastric pain over the last 2 years with associated diarrhea and vomiting. He previously reported epigastric pain, vomiting, and diarrhea had improved. He reported taking probiotics occasionally that were helping his diarrhea. He also reported taking Pepcid 20 mg nearly every day that was helping his symptoms, was also taking omeprazole 40 mg daily. Patient previously indicated he drinks 30 beers a week over the last 20 years. Patient was educated to limit alcohol use and follow-up with PCP to assist in decreasing alcohol use. Patient was also previously educated regarding fiber supplementation daily. Patient had previous ultrasound of RUQ that was unremarkable 05/2023. EGD completed 05/06/2023 revealed normal esophagus, moderate gastric erosions, normal duodenum, duodenal biopsy within normal limits, stomach biopsy revealed inactive gastritis, negative for intestinal metaplasia, negative for H. pylori?Dr. Asencio recommended for patient to avoid NSAIDs and alcohol. Colonoscopy completed 05/06/2023 revealed normal terminal ileum, normal colonic mucosa, 2 tubular adenomas removed from transverse colon, hemorrhoids?Dr. Asencio recommended for patient to have repeat colonoscopy in 7 years?2029. Patient reported during visit with me 07/11/2023 that he was still having epigastric pain described as achy over the last 2 years that was occurring nearly every day with associated nausea and vomiting. He reported nausea and vomiting occurred at times with tomato-based products. He reported he was currently drinking 6 beers 2 times a week and was trying to cut down on alcohol use. Patient was educated to complete previously ordered labs. Patient was ordered MRCP, lipase and amylase level. Patient had previous labs 07/18/2023 that revealed low potassium of 2.8. I had called patient personally regarding and educated to be further evaluated/treated in ED as he would likely require IV potassium supplementation given critically low potassium. Patient also reported at that time that he felt sick and dehydrated?was educated to be evaluated in ED. Further review of labs from 07/18/2023 revealed elevated H&H, elevated BUN and elevated total protein and bilirubin level?likely related to dehydration. Patient was evaluated in ED 07/18/2023 in regards to hypokalemia?patient was given oral potassium and IV potassium in the ED. Patient was admitted to hospital. During patient's hospitalization he was treated for hyponatremia, hypokalemia, nausea and vomiting with diarrhea, dysphagia and acid reflux. Patient was treated with GI cocktail, PPI twice daily. Patient had refused BMX solution per note. Note also indicated patient with possible cyclic vomiting and had urine drug screen that was positive for barbiturates and cannabis. Patient was discharged home with oral potassium supplementation and pantoprazole 20 mg twice daily to take with famotidine 20 mg at bedtime. Patient was discharged home 07/19/2023. During today's visit, patient reports he is feeling better. He reports he no longer having nausea/vomiting, last occurred 1 week ago. He explains he is no longer having diarrhea, last occurred 1 week ago. He reports having diarrhea last week, then no BM for 5 days and is now having 1 formed BM daily. He reports having acid reflux occurring daily over the last week. Is taking pantoprazole 40mg BID and pepcid 20mg at bedtime with tums as needed. He reports feeling like pantoprazole, pepcid and tums are helping his acid reflux. Patient reports he uses marijuana 2 times a month for years. He reports he has cut down on use of marijuana over the last 3-4 months, was previously using marijuana daily. Patient reports he has not drank any alcohol in the last 2 weeks- is following with his PCP regarding. Denies black/bloody stools, abdominal pain, fevers/chills, and denies having any other GI complaints. Review of Systems ROS - Provider Constitutional: no fever, no chills. Skin: no Jaundice. ENMT: Denies dysphagia and heartburn. Respiratory: no shortness of breath. Cardiovascular: no chest pain. Gastrointestinal: no nausea, no vomiting, no diarrhea, no GI bleeding. Physical Exam Vitals & Measurements T: 36.4 ?C(Temporal Artery) HR: 77(Peripheral) BP: 110/72 HT: 71 in HT: 180 cm WT: 83.5 kg WT: 183.7 lb BMI: 25 (more content not included)... [facility] Comment on above: Result Comment: Elec tronically Signed By: Cyndee Snell CNP\.zach\Date and Time Signed: 07/25/23 10:08 EDT Patient Educationon 07-25-20 Patient Education Gastroenterology Food Choices for Gastroesophageal Reflux Disease, Adult When you have gastroesophageal reflux disease (GERD), the foods you eat and your eating habits are very important. Choosing the right foods can help ease the discomfort of GERD. Consider working with a dietitian to help you make healthy food choices. What are tips for following this plan? Reading food labels ? Look for foods that are low in saturated fat. Foods that have less than 5% of daily value (DV) of fat and 0 g of trans fats may help with your symptoms. Cooking ? Cook foods using methods other than frying. This may include baking, steaming, grilling, or broiling. These are all methods that do not need a lot of fat for cooking. ? To add flavor, try to use herbs that are low in spice and acidity. Meal planning ? Choose healthy foods that are low in fat, such as fruits, vegetables, whole grains, low-fat dairy products, lean meats, fish, and poultry. ? Eat frequent, small meals instead of three large meals each day. Eat your meals slowly, in a relaxed setting. Avoid bending over or lying down until 2?3 hours after eating. ? Limit high-fat foods such as fatty meats or fried foods. ? Limit your intake of fatty foods, such as oils, butter, and shortening. ? Avoid the following as told by your health care provider: ? Foods that cause symptoms. These may be different for different people. Keep a food diary to keep track of foods that cause symptoms. ? Alcohol. ? Drinking large amounts of liquid with meals. ? Eating meals during the 2?3 hours before bed. Lifestyle ? Maintain a healthy weight. Ask your health care provider what weight is healthy for you. If you need to lose weight, work with your health care provider to do so safely. ? Exercise for at least 30 minutes on 5 or more days each week, or as told by your health care provider. ? Avoid wearing clothes that fit tightly around your waist and chest. ? Do not use any products that contain nicotine or tobacco. These products include cigarettes, chewing tobacco, and vaping devices, such as e-cigarettes. If you need help quitting, ask your health care provider. ? Sleep with the head of your bed raised. Use a wedge under the mattress or blocks under the bed frame to raise the head of the bed. ? Chew sugar-free gum after mealtimes. What foods should I eat? Eat a healthy, well-balanced diet of fruits, vegetables, whole grains, low-fat dairy products, lean meats, fish, and poultry. Each person is different. Foods that may trigger symptoms in one person may not trigger any symptoms in another person. Work with your health care provider to identify foods that are safe for you. The items listed above may not be a complete list of recommended foods and beverages. Contact a dietitian for more information. What foods should I avoid? Limiting some of these foods may help manage the symptoms of GERD. Everyone is different. Consult a dietitian or your health care provider to help you identify the exact foods to avoid, if any. Fruits Any fruits prepared with added fat. Any fruits that cause symptoms. For some people this may include citrus fruits, such as oranges, grapefruit, pineapple, and melyssa. Vegetables Deep-fried vegetables. Serbian fries. Any vegetables prepared with added fat. Any vegetables that cause symptoms. For some people, this may include tomatoes and tomato products, chili peppers, onions and garlic, and horseradish. Grains Pastries or quick breads with added fat. Meats and other proteins High-fat meats, such as fatty beef or pork, hot dogs, ribs, ham, sausage, salami, and barrientos. Fried meat or protein, including fried fish and fried chicken. Nuts and nut butters, in large amounts. Dairy Whole milk and chocolate milk. Sour cream. Cream. Ice cream. Cream cheese. Milkshakes. Fats and oils Butter. Margarine. Shortening. Ghee. Beverages Coffee and tea, with or without caffeine. Carbonated beverages. Sodas. Energy drinks. Fruit juice made with acidic fruits, such as orange or grapefruit. Tomato juice. Alcoholic drinks. Sweets and desserts Chocolate and cocoa. Donuts. Seasonings and condiments Pepper. Peppermint and spearmint. Added salt. Any condiments, herbs, or seasonings that cause symptoms. For some people, this may include spivey, hot sauce, or vinegar-based salad dressings. The items listed above may not be a complete list of foods and beverages to avoid. Contact a dietitian for more information. Questions to ask your health care provider Diet and lifestyle changes are usually the first steps that are taken to manage symptoms of GERD. If diet and lifestyle changes do not improve your symptoms, talk with your health care provider about taking medicines. Where to find more information ? [employer]: aboutgerd.org Summary ? When you have gastroesophageal reflux di (more content not included)... [facility] RAD - MRI Screening Formon 0 07-25-2023 RAD - MRI Screening Form [id number]:127 [facility] Insurance Correspondenceon 0 07-24-2023 Insurance Correspondence [id number]:127 [facility] BMPon 07-22-2023 Anion gap [Moles/Vol] 12 mmol/L Normal 6-16 [facility] Comment on above: Performed By: #### 2 [id number], [id number] #### [facility] [address] [place] [address] Calcium [Mass/Vol] 9.4 mg/dL Normal 8.9-11.1 [facility] Comment on above: Performed By: #### 2 [id number], [id number] #### [facility] [address] [place] [address] Chloride [Moles/Vol] 98 mmol/L Low 101-111 [facility] Comment on above: Performed By: #### 2 [id number], [id number] #### [facility] [address] [place] [address] CO2 [Moles/Vol] 31 mmol/L Normal 21-31 [facility] Comment on above: Performed By: #### 2 787239, [id number] #### [facility] [address] [place] [address] Creatinine [Mass/Vol] 1.0 mg/dL Normal 0.5-1.3 [facility] Comment on above: Performed By: #### 2 [id number], [id number] #### [facility] [address] [place] [address] Glucose [Mass/Vol] 124 mg/dL Normal 55-199 [facility] Comment on above: Result Comment: If t his glucose result represents a fasting glucose, interpretation should refer to the following reference range: 55-99 mg/dL Performed By: #### 2 [id number], [id number] #### [facility] [address] [place] [address] Potassium [Moles/Vol] 3.4 mmol/L Low 3.5-5.3 [facility] Comment on above: Performed By: #### 2 957439, [id number] #### [facility] [address] [place] [address] Sodium [Moles/Vol] 138 mmol/L Normal 135-145 [facility] Comment on above: Performed By: #### 2 857682, [id number] #### [facility] [address] [place] [address] Urea nitrogen [Mass/Vol] 13 mg/dL Normal 5-21 [facility] Comment on above: Performed By: #### 2 [id number], [id number] #### [facility] [address] [place] [address] Urea nitrogen/Creatinine [Mass ratio] 13 No Units Normal 10-20 [facility] Comment on above: Performed By: #### 2 [id number], [id number] #### [facility] [address] [place] [address] CHEMISTRYOrdered By: SYSTEM SYSTEM on 07-22-2023 Anion gap [Moles/Vol] 12 mmol/L Normal 6 - 16 mEq/L [facility] [place] [facility] Calcium [Mass/Vol] 9.4 mg/dL Normal 8.9 - 11.1 mg/dL [facility] Remisol Chloride [Moles/Vol] 98 mmol/L Low 101 - 111 mmol/ L [facility] Remisol CO2 [Moles/Vol] 31 mmol/L Normal 21 - 31 mmol/L [facility] Remisol Creatinine [Mass/Vol] 1.0 mg/dL Normal 0.5 - 1.3 mg/d L [facility] Remisol GFR/1.73 sq M.predicted among non-blacks MDRD (S/P/Bld) [Vol rate/Area] 98 mL/min/1.73 m2 Normal >=59mL/min/1.73 m2 [facility] Chem S Glucose [Mass/Vol] 124 mg/dL Normal 55 - 199 mg/dL [facility] Remisol Potassium [Moles/Vol] 3.4 mmol/L Low 3.5 - 5.3 mmol /L [facility] Sodium [Moles/Vol] 138 mmol/L Normal 135 - 145 mmol/L [facility] Urea nitrogen [Mass/Vol] 13 mg/dL Normal 5 - 21 mg/dL [facility] Urea nitrogen/Creatinine [Mass ratio] 13 mg/mg Normal 10 - 20 [facility] Consent for Treatmenton 06-26 Consent for Treatment [id number] 0CD:127 [facility] Consent for Treatment [id number]#[id number] 0CD:127 [facility] Physician Orderon 07-22-2023 Physician Order [id number]#[id number] 0CD:127 [facility] eGFRon 07-22-2023 GFR/1.73 sq M.predicted among non-blacks MDRD (S/P/Bld) [Vol rate/Area] 98 mL/min/1.73 m2 Normal >=59 [facility] Comment on above: Order Comment: Order added by Discern Expert. Result Comment: Boring Machine Operator Helper terra kidney disease could be indicated at eGFR's of less than 60 mL/min/1.73m2. Kidney failure is indicated at less than 15 mL/min/1.73m2. Performed By: #### 2 [id number], [id number] #### [facility] [address] [place] [address] BMPOrdered By: SYSTEM SYSTEM on 07-19-2023 Anion gap [Moles/Vol] 11 mmol/L Normal 6-16 [facility] Comment on above: Performed By: #### 2 [id number], [id number] #### [facility] [address] [place] [address] Calcium [Mass/Vol] 8.7 mg/dL Low 8.9-11.1 [facility] Comment on above: Performed By: #### 2 342468, [id number] #### [facility] [address] [place] [address] Chloride [Moles/Vol] 94 mmol/L Low 101-111 [facility] Comment on above: Performed By: #### 2 [id number], [id number] #### [facility] [address] [place] [address] CO2 [Moles/Vol] 32 mmol/L High 21-31 [facility] Comment on above: Performed By: #### 2 846464, [id number] #### [facility] [address] [place] [address] Creatinine [Mass/Vol] 1.0 mg/dL Normal 0.5-1.3 [facility] Comment on above: Performed By: #### 2 163570, [id number] #### [facility] [address] [place] [address] Glucose [Mass/Vol] 112 mg/dL Normal 55-199 [facility] Comment on above: Result Comment: If t his glucose result represents a fasting glucose, interpretation should refer to the following reference range: 55-99 mg/dL Performed By: #### 2 936208, [id number] #### [facility] [address] [place] [address] Potassium [Moles/Vol] 3.7 mmol/L Normal 3.5-5.3 [facility] Comment on above: Performed By: #### 2 094194, [id number] #### [facility] [address] [place] [address] Sodium [Moles/Vol] 133 mmol/L Low 135-145 [facility] Comment on above: Performed By: #### 2 996860, [id number] #### [facility] [address] [place] [address] Urea nitrogen [Mass/Vol] 21 mg/dL Normal 5-21 [facility] Comment on above: Performed By: #### 2 350867, [id number] #### [facility] [address] [place] [address] BMPon 07-19-2023 Urea nitrogen/Creatinine [Mass ratio] 21 No Units High 10-20 [facility] Comment on above: Performed By: #### 2 400929, [id number] #### [facility] [address] [place] [address] CHEMISTRYOrdered By: SYSTEM SYSTEM on 07-19-2023 Urea nitrogen/Creatinine [Mass ratio] 21 mg/mg High 10 - 20 [facility] Remisol Discharge Instructionson Discharge Instructions [id number]:127 [facility] Discharge Note-Nursingon Discharge Note-Nursing LEANDRO BLACK :1985 Visit Date:07/18/2023 Inpatient Discharge Instructions Your Care Team Admitting Physician - Peña Gr DO Reason for Your Visit Patient presents with low K+ of 2.8 from outpt labs. pt being treated of colitis Your Diagnosis Hypokalemia Hyponatremia Nausea vomiting and diarrhea Odynophagia Bradycardia Erythrocytosis Smoker Acid reflux On deep vein thrombosis (DVT) prophylaxis Marijuana use Barbiturate use Medical screening exam Tests Performed BMP Clostridium Difficile PCR -- Results Pending -- eGFR Enteric Panel by PCR -- Results Pending -- Folate Level Hemoglobin and Hematocrit Magnesium Level Potassium Level TSH With T4fr Reflex UA With Cult Reflex Urine Drug Screen Vitamin B12 Level Vitamin D 25 Hydroxy Please visit your patient portal for your results or contact your primary care physician. This Is Your Medications List acetaminophen (acetaminophen 325 mg Tab) famotidine (famotidine 20 mg Tab) pantoprazole (Pantoprazole [address] Tab) potassium chloride (potassium chloride 10 mEq Cap-ER) [Image Removed: STOP]Stop taking these medications acetaminophen-hydrocod one (acetaminophen-hydroco done 325 mg-5 mg oral tablet) omeprazole (omeprazole 40 mg Cap-DR) Procedure History Colonoscopy (05/06/2023), Esophagogastroduodenos copy (05/06/2023), Vasectomy (01/11/2022), Laparoscopic repair of incisional hernia (03/13/2021), History of lumbar fusion (02/24/2020), Colonoscopy (06/01/2019), Esophagogastroduodenos copy (06/01/2019), Colonoscopy. Discharge Vitals Temperature (Axillary) 36.9 ?C Heart Rate (Monitored) 54 Respiratory Rate 20 Blood Pressure 125/81 Height 180 cm Weight 79.3 kg BMI 24.32 What to do next Instructions From Your Doctor Event Name Event Result Discharge Activity Ambulate as tolerated, Activity as tolerated Discharge Restrictions No restrictions Discharge Diet(s) Regular Pending Diagnostic Test Results None Pharmacy Information [facility] Discharge Instructions Return to the hospital in 3 days to have labs drawn and call PCP for those results. Avoid drug, alcohol use. Stay well hydrated with water. Follow up appts as written. Previously Scheduled Follow-Up Appointments 2022 9:40 AM EDT With: Cyndee Snell CNP Where: [facility] HEMATOLOGYOrdered By: Akiko Isabel on 07-19-2023 Hematocrit (Bld) [Volume fraction] 47.7 % Normal 37.7 - 49.0 % [facility] HemeAutoSS Hemoglobin (Bld) [Mass/Vol] 16.6 g/dL Normal 13.5 - 17.5 gm/dL [facility] HemeAutoSS Hct & Hgbon 07-19-2023 Hematocrit (Bld) [Volume fraction] 47.7 % Normal 37.7-49.0 [facility] Comment on above: Performed By: #### 2 [id number], [id number] #### [facility] [address] [place] [address] Hemoglobin (Bld) [Mass/Vol] 16.6 g/dL Normal 13.5-17.5 [facility] Comment on above: Performed By: #### 2 [id number], [id number] #### [facility] [address] [place] [address] Inpatient Clinical Summaryon 07-19-2023 Inpatient Clinical Summary [address] [address] Clinical Summary Person Information: Name: LEANDRO BLACK Age: 38 Years : 1985 Sex: Male PCP: Amber English DO Marital Status: Single Race: White Ethnicity: Non- or Language: [place] Citizen Visit Id: Visit Reason: Medical screening exam; SENT FROM [facility] OFFICE Speciality: Acuity: Enc Type: Observation Med Service: Medical Arrival: 07/18/2023 12:11:37 Discharge: Dispo Type: Admitted as IP to this [facility] Address: [address] [place] [id number] Provider Notes: Diagnosis: 1:Hypokalemia; 2:Hyponatremia; 3:Nausea vomiting and diarrhea; 4:Odynophagia; 5:Bradycardia; 6:Erythrocytosis; 7:Smoker; 8:Acid reflux; 9:On deep vein thrombosis (DVT) prophylaxis; 10:Marijuana use; 11:Barbiturate use Problems Active Acid reflux History of colon polyps Epigastric pain Hemorrhoids Colon polyps Gastric erosions Colitis, Clostridium difficile Melena Bleeding per rectum Nausea and vomiting Nausea Abdominal pain Encounter for vasectomy Right inguinal hernia BMI 29.0-29.9,adult Smoker Smoking Status: Current Some Day Smoker Functional Status: Sensory Deficits: History of Falls: Mobility Assistance Prior to Admission: Independent ADLs: Independent Current Level of Assistance for Self-Care/Mobility: Cognitive Status: Oriented x 3 Allergies No Known Medication Allergies Measurements: Height: 180 cm Weight: 79.3 kg Blood Pressure: 125 mmHg / 81 mmHg BMI: 24.32 kg/m2 Procedures No Procedures Documented Immunizations No Immunizations Documented This Visit Final Med List: acetaminophen (acetaminophen 325 mg Tab) 2 Tablets By Mouth every 6 hours as needed Pain. famotidine (famotidine 20 mg Tab) 1 Tablets By Mouth at bedtime. pantoprazole (Pantoprazole [address] Tab) 1 Tablets By Mouth 2 times a day for 30 Days. Refills: 0. potassium chloride (potassium chloride 10 mEq Cap-ER) 1 Capsules By Mouth every day. Refills: 0. Care Team Members: Attending Physician: Peña Gr DO Consulting Physician: Referring Physician: Follow up: With: Address: When: [address] [place], [place] [id number] Business (1) 07/25/2023 9:40 AM Comments: Appt will be with nurse practiotioner at the [place] office With: Address: When: Amber English [address], [facility] C, [facility] [address] [place] [address] Business (1) Within 2 to 4 days Comments: Office will call patient with F/U if needed. Patient was just seen by provider on 07/17 for same symptoms related to admission. Type Location Start [facility] Follow Up [facility] 07/25/2023 9:40 AM 07/25/2023 10:00 AM Confirmed Patient Education Information: Cyclic Vomiting Syndrome, Adult; Hypokalemia potassium chloride Normal [facility] Inpatient Patient Summaryon 07-19-2023 Inpatient Patient Summary [address] [address] Patient Discharge Instructions PERSON INFORMATION Name: BLACKMIGUE NICHOLASNON Shaun Date of : 1985 Current Date: 07/19/2023 12:04:16 PHYSICIANS Admitting Physician: Peña Gr DO Primary Care Physician: Amber English DO PCP Comment: Discharge Diagnosis: 1:Hypokalemia; 2:Hyponatremia; 3:Nausea vomiting and diarrhea; 4:Odynophagia; 5:Bradycardia; 6:Erythrocytosis; 7:Smoker; 8:Acid reflux; 9:On deep vein thrombosis (DVT) prophylaxis; 10:Marijuana use; 11:Barbiturate use Condition at Discharge: Stable LEANDRO BLACK has been given the following list of follow-up instructions, prescriptions, and patient education materials: PATIENT FOLLOW-UP INFORMATION Diet: Regular Discharge Activity: Ambulate as tolerated, Activity as tolerated Discharge Restrictions: No restrictions Wound Care Instructions: Remove Your Dressing In Days Call Your Doctor For: IF UNABLE TO CONTACT YOUR PHYSICIAN AND YOU FEEL IT IS AN EMERGENCY, GO TO THE NEAREST EMERGENCY ROOM OR CALL 911 Home Treatment: Devices/Equipment: None Special Services: Additional Instructions: Return to the hospital in 3 days to have labs drawn and call PCP for those results Avoid drug, alcohol use Stay well hydrated with water Follow up appts as written Primary Care Physician to provide the following pending test results: None Follow up: With: Address: When: Mal ASENCIO [address] [place], [place] [phone] Business (1) 07/25/2023 9:40 AM Comments: Appt will be with nurse practiotioner at the [place] office With: Address: When: Amber English [address], [address] [place] [address] Business (1) Within 2 to 4 days Comments: Office will call patient with F/U if needed. Patient was just seen by provider on 07/17 for same symptoms related to admission. In the event that this physician does not participate in your insurance network, please consult with your insurance company to find a nearby participating provider. Type Location [facility] Follow Up [facility] 07/25/2023 9:40 AM 07/25/2023 10:00 AM Confirmed Comment: IKATHY VERNON A, have received the attached patient education materials/instructions and have verbalized understanding: Patient Signature Date Clinican/Nurse Signature ___ Date HERE ARE THE MEDICATION CHANGES THAT OCCURRED DURING YOUR HOSPITAL STAY New Medications [id number], [address] [place] [id number], [phone] pantoprazole (Pantoprazole [address] Tab) 1 Tablets By Mouth 2 times a day for 30 Days. Refills: 0. Last Dose: ___Next Dose: ___ potassium chloride (potassium chloride 10 mEq Cap-ER) 1 Capsules By Mouth every day. Refills: 0. Last Dose: ___Next Dose: ___ Other Medications acetaminophen (acetaminophen 325 mg Tab) 2 Tablets By Mouth every 6 hours as needed Pain. Last Dose: ___Next Dose: ___ Medications to Continue with No Changes Other Medications famotidine (famotidine 20 mg Tab) 1 Tablets By Mouth at bedtime. Last Dose: ___Next Dose: ___ No Longer Take the Following Medications acetaminophen-hydrocod one (acetaminophen-hydroco done 325 mg-5 mg oral tablet) 1 Tablets By Mouth every 6 hours as needed for pain. omeprazole (omeprazole 40 mg Cap-DR) 1 Capsules By Mouth every day for 90 Days. TAKE 1 CAPSULE BY MOUTH EVERY DAY. Refills: 1. Comment: MEDICATION LIST PROVIDED FOR YOU IS A LIST OF YOUR CURRENT MEDICATIONS. PLEASE CARRY THIS WITH YOU AT ALL TIMES. acetaminophen (acetaminophen 325 mg Tab) 2 Tablets By Mouth every 6 hours as needed Pain. famotidine (famotidine 20 mg Tab) 1 Tablets By Mouth at bedtime. pantoprazole (Pantoprazole [address] Tab) 1 Tablets By Mouth 2 times a day for 30 Days. Refills: 0. potassium chloride (potassium chloride 10 mEq Cap-ER) 1 Capsules By Mouth every day. Refills: 0. Pharmacy Information: [facility] Comment: PATIENT EDUCATION INFORMATION Instructions: Cyclic Vomiting Syndrome, Adult Cyclic vomiting syndrome (CVS) is a condition that causes episodes of severe nausea and vomiting. It can last for hours or even days. Attacks may occur several times a month or several times a year. Between episodes of CVS, you may be otherwise healthy. What are the causes? The cause of this condition is not known. Although many of the episodes can happen for no obvious reason, you may have specific CVS triggers. Episodes may be triggered by: ? An infection, especially colds and the flu. ? Emotional stress, including excitement or anxiety about finances, relations (more content not included)... Normal [facility] Monitor Recordon 07-19-2023 Monitor Record [id number]#1. 00CD:127 Normal [facility] Monitor Record [id number]#1. 00CD:127 Normal [facility] Monitor Record [id number]#1. 00CD:127 Normal [facility] U Drug Screenon 07-19-2023 Amphetamines Screen method >1000 ng/mL Ql (U) Negative Normal Negative [facility] Comment on above: Result Comment: Nega tive Cutoff: <1000 ng/mL Performed By: #### 2 [id number] ####[facility] [address] [place] [address] Barbiturates Screen Ql (U) Positive Abnormal Negative [facility] Comment on above: Result Comment: Crit ical Result verified by repeat analysis\No confirmation requested by Nasrin\Unconfirmed by alternate method\Critical Result UD_BARB:POS Called to KELLY VANCE AT 3S by HUANG MONTERO And Read Back For Confirmation at: 07/19/2023 01:00:31 Negative Cutoff: <200 ng/mL Performed By: #### 2 308729 ####[facility] [address] [place] [address] Benzodiazepines Ql (U) Negative Normal Negative [facility] Comment on above: Result Comment: Nega tive Cutoff: <200 ng/mL Performed By: #### 2 178326 ####[facility] [address] [place] [address] Cocaine Ql (U) Negative Normal Negative [facility] Comment on above: Result Comment: Nega tive Cutoff: <300 ng/mL Performed By: #### 2 355090 ####[facility] [address] [place] [address] Opiates Screen Ql (U) Negative Normal Negative [facility] Comment on above: Result Comment: Nega tive Cutoff: <300 ng/mL Performed By: #### 2 456899 ####[facility] [address] [place] [address] Phencyclidine Screen method >25 ng/mL Ql (U) Negative Normal Negative [facility] Comment on above: Result Comment: Nega tive Cutoff: <25 ng/mL These drug screen results are to be used for medical (i.e., treatment) purposes only. Unconfirmed drug screening results must not be used for non-medical purposes (e.g., employment testing, legal testing). Performed By: #### 2 613340 ####[facility] [address] [place] [address] Tetrahydrocannabinol Screen method >50 ng/mL Ql (U) Positive Abnormal Negative [facility] Comment on above: Result Comment: Crit ical Result verified by repeat analysis\No confirmation requested by Physican\Unconfirmed by alternate method\Critical Result UD_THC:POS Called to KELLY VANCE AT 3S by HUANG MONTERO And Read Back For Confirmation at: 07/19/2023 01:00:31 Negative Cutoff: <50 ng/mL Performed By: #### 2 265058 ####[facility] [address] [place] [address] UA With Cult Reflexon 2022 Bilirubin Ql (U) Negative Normal Negative [facility] Comment on above: Performed By: #### 1 2158482, 68012895, 9508785, 7953500, 50420243, 5014150, 4427749 #### [facility] [address] [place] [address] Clarity (U) CLEAR Normal Clear [facility] Comment on above: Performed By: #### 1 9063231, 74657144, 8274144, 2675017, 01486067, 5346948, 2139404 #### [facility] [address] [place] [address] Color (U) YELLOW Normal Yellow [facility] Comment on above: Performed By: #### 1 7030772, 20087024, 1475801, 2231359, 92698094, 3028581, 8361547 #### [facility] [address] [place] [address] Epithelial cells.squamous LM.HPF (Urine sed) [#/Area] 0-2 Normal 0-2 [facility] Comment on above: Performed By: #### 1 5665697, 13738208, 5742324, 1592375, 03132645, 3804710, 2846872 #### [facility] [address] [place] [address] Glucose Test strip (U) [Mass/Vol] Negative Normal Negative [facility] Comment on above: Performed By: #### 1 9433472, 10224249, 1021927, 9554831, 16708989, 4042291, 7153836 #### [facility] [address] [place] [address] Hemoglobin Ql (U) Negative Normal Negative [facility] Comment on above: Performed By: #### 1 4136008, 55496248, 1994194, 5271097, 69017291, 9464020, 1619183 #### [facility] [address] [place] [address] Ketones (U) [Mass/Vol] Negative Normal Negative [facility] Comment on above: Performed By: #### 1 5943319, 80884663, 4996698, 3881502, 38510335, 0205377, 6841139 #### [facility] [address] [place] [address] Holden.plasma/Lithiu m.RBC (Bld) [Mass ratio] 0-3 Normal 0-3 [facility] Comment on above: Performed By: #### 1 2589208, 48950912, 4182846, 5975984, 97506679, 8819148, 3447492 #### [facility] [address] [place] [address] Nitrite Ql (U) Negative Normal Negative [facility] Comment on above: Performed By: #### 1 3671456, 27569653, 4062223, 2030355, 53973140, 4701334, 3893645 #### [facility] [address] [place] [address] pH (U) 7.5 [pH] Invalid Interpretation Code 5.0-9.0 [facility] Comment on above: Performed By: #### 1 7550887, 32285062, 4653611, 0838599, 68558115, 0487159, 9676171 #### [facility] [address] [place], [place] [address] Protein (U) [Mass/Vol] Negative Normal Negative [facility] Comment on above: Performed By: #### 1 0626317, 01953226, 6489481, 9321007, 06144887, 4639161, 9818032 #### [facility] [address] [place] [address] Specific gravity (U) [Rel density] <=1.005 Invalid Interpretation Code 1.005-1.030 [facility] Comment on above: Performed By: #### 1 3566505, 56577789, 1053242, 4711803, 21089083, 7621491, 3286874 #### [facility] [address] [place] [address] Type of Urine collection method Clean Catch Normal [facility] Comment on above: Performed By: #### 1 2040220, 46078775, 6300518, 7658580, 80147510, 2180105, 1234523 #### [facility] [address] [place] [address] Urobilinogen Qn (U) 1.0 {Anya'U}/dL Normal 0.0-1.0 [facility] Comment on above: Performed By: #### 1 0934854, 01387317, 7462705, 1896061, 76096902, 6722004, 4402254 #### [facility] [address] [place] [address] WBC Auto Ql (U) Negative Normal Negative [facility] Comment on above: Performed By: #### 1 2943832, 47990718, 9681775, 7971896, 97486019, 9981924, 0951304 #### [facility] [address] [place] [address] WBC LM.HPF (Urine sed) [#/Area] 0-5 Normal 0-5 [facility] Comment on above: Performed By: #### 1 0191174, 53838258, 8045594, 4032879, 52509125, 5339622, 5513296 #### [facility] [address] [place] [address] eGFROrdered By: SYSTEM SYSTE xzoops on 07-19-2023 GFR/1.73 sq M.predicted among non-blacks MDRD (S/P/Bld) [Vol rate/Area] 98 mL/min/1.73 m2 Normal >=59 [facility] Chem S Comment on above: Order Comment: Order added by Discern Expert. Result Comment: Boring Machine Operator Helper terra kidney disease could be indicated at eGFR's of less than 60 mL/min/1.73m2. Kidney failure is indicated at less than 15 mL/min/1.73m2. Performed By: #### 2 454417, 75993608 #### [facility] [address] [place] [address] Amylaseon 07-18-2023 Amylase [Catalytic activity/Vol] 63 U/L Normal 25-157 [facility] Comment on above: Performed By: #### 1 2899181, 70205522, 5654643, 8082200, 01767134, 2528175, 6671598 #### [facility] [address] [place] [address] Auto Diffon 07-18-2023 Basophils/100 WBC (Bld) 0.2 % Normal 0.0-2.0 [facility] Comment on above: Order Comment: Order Added by Discern Expert. Performed By: #### 1 4572657, 75496971, 2927969, 2647331, 97600466, 5684705, 7935072 #### [facility] [address] [place] [address] Basophils/Leukocytes Auto (Bld) [Pure # fraction] 0.0 E9/L Normal 0.0-0.2 [facility] Comment on above: Order Comment: Order Added by Discern Expert. Performed By: #### 1 8012584, 73372504, 8677451, 4999691, 92350766, 5518825, 2932794 #### [facility] [address] [place] [address] Eosinophils/100 WBC (Bld) 1.4 % Normal 0.0-8.0 [facility] Comment on above: Order Comment: Order Added by Discern Expert. Performed By: #### 1 6571575, 54673981, 3312803, 9851945, 33869633, 9777296, 0441458 #### [facility] [address] [place] [address] Eosinophils/Leukocyte s Auto (Bld) [Pure # fraction] 0.1 E9/L Normal 0.0-0.5 [facility] Comment on above: Order Comment: Order Added by Discern Expert. Performed By: #### 1 6171367, 15296229, 8827744, 4888303, 87629300, 7290189, 5505495 #### [facility] [address] [place] [address] Lymphocytes/100 WBC (Bld) 23.3 % Normal 14.0-50.0 [facility] Comment on above: Order Comment: Order Added by Discern Expert. Performed By: #### 1 2033539, 16496325, 3346500, 2733550, 06973286, 3808000, 7970191 #### [facility] [address] [place] [address] Lymphocytes/Leukocyte s Auto (Bld) [Pure # fraction] 2.4 E9/L Normal 1.0-4.0 [facility] Comment on above: Order Comment: Order Added by Brian Expert. Performed By: #### 1 4060696, 57137107, 8723675, 2362713, 24588984, 2069744, 4120641 #### [facility] [address] [place] [address] Monocytes/100 WBC (Bld) 11.8 % Normal 4.0-14.0 [facility] Comment on above: Order Comment: Order Added by Discern Expert. Performed By: #### 1 1764370, 92610504, 6310593, 4323098, 95434102, 6458306, 7181252 #### [facility] [address] [place] [address] Monocytes/Leukocytes Auto (Bld) [Pure # fraction] 1.2 E9/L High 0.2-1.0 [facility] Comment on above: Order Comment: Order Added by Discern Expert. Performed By: #### 1 3564804, 58172876, 2980056, 8363984, 48247427, 0459140, 1294955 #### [facility] [address] [place] [address] Neutrophils/100 WBC (Bld) 63.3 % Normal 36.0-75.0 [facility] Comment on above: Order Comment: Order Added by Discern Expert. Performed By: #### 1 6327754, 05951257, 3352488, 8504434, 40158190, 6303323, 9501309 #### [facility] [address] [place] [address] Neutrophils/Leukocyte s Auto (Bld) [Pure # fraction] 6.5 E9/L Normal 2.0-7.5 [facility] Comment on above: Order Comment: Order Added by Discern Expert. Performed By: #### 1 3485553, 09008299, 3918522, 4062859, 34407108, 3980009, 6116592 #### [facility] [address] [place] [address] BMPOrdered By: SYSTEM SYSTEM on 07-18-2023 Anion gap [Moles/Vol] 16 mmol/L Normal 6-16 [facility] Comment on above: Performed By: #### 1 4411796, 51051921, 5824809, 3903822, 55062224, 6187522, 2397879 #### [facility] [address] [place] [address] Anion gap [Moles/Vol] 15 mmol/L Normal 6-16 [facility] Comment on above: Performed By: #### 5 29232351, 4394855, 46584162, 8651812 ####[facility] [address] [place] [address] Calcium [Mass/Vol] 9.2 mg/dL Normal 8.9-11.1 [facility] Comment on above: Performed By: #### 1 3699740, 60040649, 0787556, 7755739, 41682267, 1178246, 8916318 #### [facility] [address] [place] [address] Calcium [Mass/Vol] 9.1 mg/dL Normal 8.9-11.1 [facility] Comment on above: Performed By: #### 5 22478100, 4627491, 60613296, 1873946 ####[facility] [address] [place] [address] Chloride [Moles/Vol] 84 mmol/L Low 101-111 [facility] Comment on above: Performed By: #### 1 6779494, 79480718, 8590332, 7819148, 13181799, 5175119, 4282374 #### [facility] [address] [place] [address] Chloride [Moles/Vol] 86 mmol/L Low 101-111 [facility] Comment on above: Performed By: #### 5 26735615, 9053249, 37487382, 3701863 ####[facility] [address] [place] [address] CO2 [Moles/Vol] 35 mmol/L High 21-31 [facility] Comment on above: Performed By: #### 1 9460905, 79864958, 6390838, 4796144, 44488129, 2323040, 4237120 #### [facility] [address] [place] [address] CO2 [Moles/Vol] 35 mmol/L High 21-31 [facility] Comment on above: Performed By: #### 5 23995592, 2262267, 87232197, 3407953 ####[facility] [address] [place] [address] Creatinine [Mass/Vol] 1.1 mg/dL Normal 0.5-1.3 [facility] Comment on above: Performed By: #### 1 3804715, 97641143, 7821036, 1868861, 50580003, 8171077, 6283634 #### [facility] [address] [place] [address] Creatinine [Mass/Vol] 1.1 mg/dL Normal 0.5-1.3 [facility] Comment on above: Performed By: #### 5 20558118, 5111545, 08454400, 9858863 ####[facility] [address] [place] [address] Glucose [Mass/Vol] 112 mg/dL Normal 55-199 [facility] Comment on above: Result Comment: If t his glucose result represents a fasting glucose, interpretation should refer to the following reference range: 55-99 mg/dL Performed By: #### 1 1808078, 23788683, 2737770, 9312919, 17908750, 9087156, 3191879 #### [facility] [address] [place] [address] Glucose [Mass/Vol] 105 mg/dL Normal 55-199 [facility] Comment on above: Result Comment: If t his glucose result represents a fasting glucose, interpretation should refer to the following reference range: 55-99 mg/dL Performed By: #### 5 06115033, 8141752, 19582368, 6846872 ####[facility] [address] [place] [address] Sodium [Moles/Vol] 132 mmol/L Low 135-145 [facility] Comment on above: Performed By: #### 1 5853487, 94091195, 2543127, 5458786, 81987479, 8635019, 5116614 #### [facility] [address] [place] [address] Sodium [Moles/Vol] 133 mmol/L Low 135-145 [facility] Rem[facility] Comment on above: Performed By: #### 5 98043944, 5364435, 12786056, 8162430 ####[facility] [address] [place] [address] Urea nitrogen [Mass/Vol] 34 mg/dL High 5-21 [facility] Rem[facility] Comment on above: Performed By: #### 1 4558363, 78964072, 1452488, 7523954, 27828098, 6207178, 8190451 #### [facility] [address] [place] [address] Urea nitrogen [Mass/Vol] 32 mg/dL High 5-21 [facility] Rem[facility] Comment on above: Performed By: #### 5 77202740, 5212072, 04812970, 0148893 ####[facility] [address] [place] [address] BMPon 07-18-2023 Potassium [Moles/Vol] 2.5 mmol/L Abnormal 3.5-5.3 [facility] Comment on above: Result Comment: Crit ical Result verified by repeat analysis\Critical Result S_K:2.[address] by CYNDEE GATES And Read Back For Confirmation at: 07/18/2023 13:21:48 Performed By: #### 1 4900562, 04143404, 9459786, 2451281, 34473420, 6534409, 4100954 #### [facility] [address] [place] [address] Potassium [Moles/Vol] 3.0 mmol/L Low 3.5-5.3 [facility] Comment on above: Performed By: #### 5 20113813, 7432541, 16288246, 0029286 ####[facility] [address] [place] [address] Urea nitrogen/Creatinine [Mass ratio] 31 No Units High 10-20 [facility] Comment on above: Performed By: #### 1 6763818, 20901780, 4870998, 1370278, 37472587, 2186599, 1800672 #### [facility] [address] [place] [address] Urea nitrogen/Creatinine [Mass ratio] 29 No Units High 10-20 [facility] Comment on above: Performed By: #### 5 98821874, 6645062, 33909752, 8660757 ####[facility] [address] [place] [address] CBC w/ Auto Diffon 3 Erythrocyte distribution width (RBC) [Ratio] 13.3 % Normal 10.9-14.2 [facility] Comment on above: Performed By: #### 1 9821477, 34148024, 8231515, 1692926, 87245836, 4993270, 4881440 #### [facility] [address] [place] [address] Hematocrit (Bld) [Volume fraction] 55.0 % High 37.7-49.0 [facility] Comment on above: Performed By: #### 1 7985438, 35690882, 7373332, 6000851, 36427903, 6756627, 5441782 #### [facility] [address] [place] [address] Hemoglobin (Bld) [Mass/Vol] 19.0 g/dL High 13.5-17.5 [facility] Comment on above: Performed By: #### 1 9097225, 12400327, 5229999, 0414097, 59118648, 1181077, 1834876 #### [facility] [address] [place] [address] MCH (RBC) [Entitic mass] 32.0 pg Normal 27.0-34.0 [facility] Comment on above: Performed By: #### 1 2596610, 90123547, 8634333, 1608753, 33539409, 7371556, 4203709 #### [facility] [address] [place] [address] MCHC (RBC) [Mass/Vol] 34.6 g/dL Normal 31.4-36.0 [facility] Comment on above: Performed By: #### 1 4374133, 94108295, 4406585, 9005704, 91119038, 4354970, 7930061 #### [facility] [address] [place] [address] MCV (RBC) [Entitic vol] 92.5 fL Normal 80.0-100.0 [facility] Comment on above: Performed By: #### 1 [id number], [id number], 8075089, 2025871, 87873647, 7442641, 8840280 #### [facility] [address] [place] [address] Platelet mean volume (Bld) [Entitic vol] 10.4 fL Normal 6.4-10.8 [facility] Comment on above: Performed By: #### 1 [id number], 28632493, 3315983, 8997505, 51993631, 6330100, 0800931 #### [facility] [address] [place] [address] Platelets (Bld) [#/Vol] 235.0 E9/L Normal 150.0-500.0 [facility] Comment on above: Performed By: #### 1 [id number], 75088214, 1220321, 1581317, 82361563, 2103091, 4642968 #### [facility] [address] [place] [address] RBC (Bld) [#/Vol] 5.9 E12/L Normal 4.3-5.9 [facility] Comment on above: Performed By: #### 1 3949787, 77625034, 3599426, 3132517, 13596419, 6548215, 3100813 #### [facility] [address] [place] [address] WBC corrected for nucl RBC Auto (Bld) [#/Vol] 10.3 E9/L Normal 4.0-11.0 [facility] Comment on above: Performed By: #### 1 7301141, 76288755, 0638081, 4928043, 68606970, 6558289, 2479127 #### [facility] [address] [place] [id number] CHEMISTRYOrdered By: SYSTEM SYSTEM on 07-18-2023 25-hydroxyvitamin D3 [Mass/Vol] 30.4 ng/mL Normal 30.0 - 100.0 ng/mL [facility] Albumin [Mass/Vol] 4.9 g/dL Normal 3.3 - 5.0 gm/dL [facility] Albumin/Globulin [Mass ratio] 1.1 {ratio} Normal 1.1 - 2.2 [facility] ALP [Catalytic activity/Vol] 50 [iU]/d Normal 21 - 98 Int._Unit/L [facility] ALT No additional P-5'-P [Catalytic activity/Vol] 36 [iU]/d Normal 6 - 46 Int._Unit/L [facility] Amphetamines Screen method >1000 ng/mL Ql (U) Negative (07/18/23 11:46 PM) Normal Negative [facility] Amylase [Catalytic activity/Vol] 63 U/L Normal 25 - 157 unit/L [facility] Anion gap [Moles/Vol] 16 mmol/L Normal 6 - 16 mEq/L [facility] AST [Catalytic activity/Vol] 29 [iU]/d Normal 5 - 43 Int._Unit/L [facility] Barbiturates Screen Ql (U) Positive 2 *ABN* (07/18/23 11:46 PM) Invalid Interpretation Code Negative [facility] Comment on above: Result Comment: Crit ical Result verified by repeat analysis\No confirmation requested by Physican\Unconfirmed by alternate method\Critical Result UD_BARB:POS Called to KELLY VANCE AT [facility]S by HUANG MONTERO And Read Back For Confirmation at: 07/19/2023 01:00:31 Benzodiazepines Ql (U) Negative (07/18/23 11:46 PM) Normal Negative [facility] Bilirubin [Mass/Vol] 2.2 mg/dL High 0.0 - 1.1 mg/dL [facility] Calcium [Mass/Vol] 9.4 mg/dL Normal 8.9 - 11.1 mg/dL [facility] Chloride [Moles/Vol] 83 mmol/L Low 101 - 111 mmol/ L [facility] CO2 [Moles/Vol] 39 mmol/L High 21 - 31 mmol/L [facility] Cobalamin (Vitamin B12) [Mass/Vol] 1047 pg/mL Normal 50 - 1500 pg/mL [facility] Cocaine Ql (U) Negative (07/18/23 11:46 PM) Normal Negative [facility] Creatinine [Mass/Vol] 1.3 mg/dL Normal 0.5 - 1.3 mg/d L [facility] Folate [Mass/Vol] 8.8 ng/mL Normal >=6.7ng/mL [facility] GFR/1.73 sq M.predicted among non-blacks MDRD (S/P/Bld) [Vol rate/Area] 71 mL/min/1.73 m2 Normal >=59mL/min/1.73 m2 [facility] Chem S Globulin (S) [Mass/Vol] 4.3 g/dL High 1.4 - 4.0 gm/dL [facility] Glucose [Mass/Vol] 100 mg/dL Normal 55 - 199 mg/dL [facility] Lipase [Catalytic activity/Vol] 35 U/L Normal 13 - 58 unit/L [facility] Opiates Screen Ql (U) Negative (07/18/23 11:46 PM) Normal Negative [facility] Phencyclidine Screen method >25 ng/mL Ql (U) Negative (07/18/23 11:46 PM) Normal Negative [facility] Potassium [Moles/Vol] 2.8 mmol/L Invalid Interpretation Code 3.5 - 5.3 mmol/L [facility] Comment on above: Result Comment: Crit ical Result verified by repeat analysis\Critical Result S_K:2.8 Called to MENA PASCUAL AT [facility] by PETER GARZA And Read Back For Confirmation at: 07/18/2023 11:35:56 Protein [Mass/Vol] 9.2 g/dL High 6.0 - 7.8 gm/dL [facility] Sodium [Moles/Vol] 135 mmol/L Normal 135 - 145 mmol/L [facility] Tetrahydrocannabinol Screen method >50 ng/mL Ql (U) Positive 1 *ABN* (07/18/23 11:46 PM) Invalid Interpretation Code Negative [facility] Comment on above: Result Comment: Crit ical Result verified by repeat analysis\No confirmation requested by Physican\Unconfirmed by alternate method\Critical Result UD_THC:POS Called to KELLY VANCE AT [facility] by HUANG MONTERO And Read Back For Confirmation at: 07/19/2023 01:00:31 TSH Qn 1.39 m[IU]/L Normal 0.34 - 5.60 mcIU/mL [facility] Urea nitrogen [Mass/Vol] 37 mg/dL High 5 - 21 mg/dL [facility] Urea nitrogen/Creatinine [Mass ratio] 28 mg/mg High 10 - 20 [facility] Urea nitrogen/Creatinine [Mass ratio] 31 mg/mg High 10 - 20 [facility] Urea nitrogen/Creatinine [Mass ratio] 29 mg/mg High 10 - 20 [facility] CHEMISTRYOrdered By: Todd schumacher on 07-18-2023 Potassium [Moles/Vol] 3.0 mmol/L Low 3.5 - 5.3 mmol /L [facility] CMPon 07-18-2023 Albumin [Mass/Vol] 4.9 g/dL Normal 3.3-5.0 [facility] Comment on above: Performed By: #### 1 3113823, 95583488, 0768918, 5828014, 18624504, 0762287, 3046186 #### [facility] [address] [place] [address] Albumin/Globulin (S) [Mass conc ratio] 1.1 Normal 1.1-2.2 [facility] Comment on above: Performed By: #### 1 9017799, 42635152, 1806995, 2729299, 99655513, 2489260, 9700554 #### [facility] [address] [place] [address] ALP [Catalytic activity/Vol] 50 Int._Unit/L Normal 21-98 [facility] Comment on above: Performed By: #### 1 0032670, 48191671, 2108338, 7960829, 92076953, 4093582, 7356705 #### [facility] [address] [place] [address] ALT No additional P-5'-P [Catalytic activity/Vol] 36 Int._Unit/L Normal 6-46 [facility] Comment on above: Performed By: #### 1 7887166, 41048103, 5271007, 8098387, 39102603, 3978764, 3161796 #### [facility] [address] [place] [address] Anion gap [Moles/Vol] 16 mmol/L Normal 6-16 [facility] Comment on above: Performed By: #### 1 8043243, 84477449, 2313292, 7196382, 14157327, 1737852, 6516762 #### [facility] [address] [place] [address] AST [Catalytic activity/Vol] 29 Int._Unit/L Normal 5-43 [facility] Comment on above: Performed By: #### 1 3866692, 34399952, 3085039, 2796328, 53756314, 2791132, 2157069 #### [facility] [address] [place] [address] Bilirubin [Mass/Vol] 2.2 mg/dL High 0.0-1.1 [facility] Comment on above: Performed By: #### 1 8086765, 00500094, 5590744, 5427600, 75282043, 9258870, 2249183 #### [facility] [address] [place] [address] Calcium [Mass/Vol] 9.4 mg/dL Normal 8.9-11.1 [facility] Comment on above: Performed By: #### 1 8025158, 78383813, 6546698, 3257290, 17868998, 8360231, 7148255 #### [facility] [address] [place] [address] Chloride [Moles/Vol] 83 mmol/L Low 101-111 [facility] Comment on above: Performed By: #### 1 5848658, 80346078, 2660303, 8834085, 58226054, 4991214, 6771708 #### [facility] [address] [place] [address] CO2 [Moles/Vol] 39 mmol/L High 21-31 [facility] Comment on above: Performed By: #### 1 6994235, 70298840, 2533591, 3588745, 67395495, 7943348, 2070123 #### [facility] [address] [place] [address] Creatinine [Mass/Vol] 1.3 mg/dL Normal 0.5-1.3 [facility] Comment on above: Performed By: #### 1 4613231, 29844128, 0430093, 8111169, 32092770, 0125248, 8508911 #### [facility] [address] [place] [address] Globulin (S) [Mass/Vol] 4.3 g/dL High 1.4-4.0 [facility] Comment on above: Performed By: #### 1 9052752, 23751213, 2348460, 2326301, 50261497, 7230566, 1189671 #### [facility] [address] [place] [address] Glucose [Mass/Vol] 100 mg/dL Normal 55-199 [facility] Comment on above: Result Comment: If t his glucose result represents a fasting glucose, interpretation should refer to the following reference range: 55-99 mg/dL Performed By: #### 1 9948596, 00762925, 5017006, 8711749, 33088542, 1918194, 3867330 #### [facility] [address] [place] [address] Potassium [Moles/Vol] 2.8 mmol/L Abnormal 3.5-5.3 [facility] Comment on above: Result Comment: Crit ical Result verified by repeat analysis\Critical Result S_K:2.8 Called to MENA PASCUAL AT [facility] by PETER GARZA And Read Back For Confirmation at: 07/18/2023 11:35:56 Performed By: #### 1 4041972, 26281542, 3623280, 6426278, 22488323, 7948604, 1776949 #### [facility] [address] [place] [address] Protein [Mass/Vol] 9.2 g/dL High 6.0-7.8 [facility] Comment on above: Performed By: #### 1 1978546, 65654792, 9718445, 6817695, 69340380, 3265485, 1021131 #### [facility] [address] [place] [address] Sodium [Moles/Vol] 135 mmol/L Normal 135-145 [facility] Comment on above: Performed By: #### 1 9219531, 06704905, 6308767, 4338386, 63058960, 2465673, 3507712 #### [facility] [address] [place] [address] Urea nitrogen [Mass/Vol] 37 mg/dL High 5-21 [facility] Comment on above: Performed By: #### 1 1494541, 45083551, 4842322, 5118685, 23152379, 8791923, 3694952 #### [facility] [address] [place] [address] Urea nitrogen/Creatinine [Mass ratio] 28 No Units High 10-20 [facility] Comment on above: Performed By: #### 1 3960564, 41105049, 9185665, 6766555, 90748881, 3121309, 9968156 #### [facility] [address] [place] [address] Consent for Treatmenton 06-26 Consent for Treatment [id number] 3080 [id number] 0CD:127 Normal [facility] Consent for Treatment [id number] 3080 [id number] 0CD:127 Normal [facility] ED Clinical Summaryon 2022 ED Clinical Summary [address] [address] ED Clinical Summary Person Information Name: LEANDRO BLACK[place] Age: 38 Years : 1985 Sex: Male Language: [place] Citizen PCP: Amber English DO Marital Status: Single Visit Id: Visit Reason: Medical screening exam; SENT FROM [facility]ICE Speciality: Acuity: 3 Enc Type: Observation Med Service: Emergency Arrival: 07/18/2023 12:11:37 Discharge: LOS: 000 03:54 Checkin: 07/18/2023 12:11:37 Checkout: 07/18/2023 16:05:42 Dispo Type: Admitted as IP to this [facility] EVENTS: Event Name Event Status Request Date/Time Start Date/Time Complete Date/Time Arrive Complete 07/18/2023 12:11:37 07/18/2023 12:11:37 07/18/2023 12:11:37 Document Home Meds Request 07/18/2023 12:11:37 Triage Complete 07/18/2023 12:11:37 07/18/2023 12:20:38 07/18/2023 12:20:38 Isolation Screening Request 07/18/2023 12:20:39 Bed Assign Complete 07/18/2023 12:20:49 07/18/2023 12:20:49 07/18/2023 12:20:49 Dr Exam Complete 07/18/2023 12:20:49 07/18/2023 12:31:40 07/18/2023 12:31:40 RN Exam Complete 07/18/2023 12:20:49 07/18/2023 12:22:26 07/18/2023 12:22:26 Registration Complete 07/18/2023 12:31:40 07/18/2023 12:37:43 07/18/2023 12:37:43 EKG Complete 07/18/2023 12:32:34 07/18/2023 12:40:13 Pending Labs Complete 07/18/2023 12:32:34 07/18/2023 13:22:00 Lab Complete 07/18/2023 12:32:34 07/18/2023 13:22:00 Dr Exam Complete 07/18/2023 12:37:33 07/18/2023 12:37:33 07/18/2023 12:37:33 Reg Complete Request 07/18/2023 12:37:43 Pending Labs Complete 07/18/2023 12:53:35 07/18/2023 12:53:35 07/18/2023 13:22:00 Lab Complete 07/18/2023 12:53:35 07/18/2023 12:53:35 07/18/2023 13:22:00 Pending Labs Complete 07/18/2023 12:54:52 07/18/2023 12:54:52 07/18/2023 12:54:53 Meds Admin Complete 07/18/2023 14:07:24 07/18/2023 14:47:20 Bed Request Request 07/18/2023 14:28:37 Reg Bed Request Request 07/18/2023 14:28:37 Admit Request 07/18/2023 14:28:37 Meds Admin Request 07/18/2023 14:36:48 Meds Admin Request 07/18/2023 15:38:44 Pending Labs Collected 07/18/2023 15:45:27 07/18/2023 15:45:27 Meds Admin Request 07/18/2023 15:47:35 Patient Care Request 07/18/2023 15:50:59 Patient Care Request 07/18/2023 15:54:20 Meds Admin Request 07/18/2023 15:54:20 Pending Labs Request 07/18/2023 15:54:20 Lab Request 07/18/2023 15:54:20 Urine Collect Request 07/18/2023 15:54:20 Meds Admin Request 07/18/2023 15:58:42 Pending Labs Request 07/18/2023 16:00:27 Inpatient Bed Ready Complete 07/18/2023 16:05:42 07/18/2023 16:05:42 07/18/2023 16:05:42 ADDRESS: [address] [place] [id number] [facility] DOC NOTES: MEDICAL INFORMATION: Prescriptions Given: Medications to Continue with No Changes Other Medications acetaminophen-hydrocod one (acetaminophen-hydroco done 325 mg-5 mg oral tablet) 1 Tablets By Mouth every 6 hours as needed for pain. famotidine (famotidine 20 mg Tab) 1 Tablets By Mouth at bedtime. omeprazole (omeprazole 40 mg Cap-DR) 1 Capsules By Mouth every day for 90 Days. TAKE 1 CAPSULE BY MOUTH EVERY DAY. Refills: 1. PATIENT EDUCATION INFORMATION: Instructions: Follow up: DIAGNOSIS: 1:Hypokalemia; 2:Hyponatremia; 3:Nausea vomiting and diarrhea; 4:Odynophagia; 5:Erythrocytosis; 6:Smoker; 7:Acid reflux; 8:On deep vein thrombosis (DVT) prophylaxis; Diarrhea, unspecified Normal [facility] ED Note-Physicianon 07-18-20 ED Note-Physician Basic Information Time Seen: Nicholas Presley PA-C 07/18/2023 12:31 Chief Complaint Patient presents with low K+ of 2.8 from outpt labs. pt being treated of colitis History of Present Illness 38-year-old male presents ED from GI office with complaint of hypokalemia. Patient has a longstanding history of recurrent gastritis which causes nausea vomiting diarrhea. Patient reports he had 1 of these episodes over the weekend. Patient reports he is only starting to tolerate p.o. intake over the last day or 2, and mostly been drinking water. Patient had regular lab work done by his GI office today. Patient was noted to be hypokalemic with a potassium of 2.8. Due to this, patient was called and told to present to the ED. On presentation to ED, patient is denying any ongoing abdominal pain nausea vomiting diarrhea. Patient reports overall he feels slightly weak, is tolerating p.o. fluids, does not feel ready to be eating solids yet. Patient denies any chest pain or palpitations. Patient denies any shortness of breath. Patient denies any history of electrolyte imbalance requiring correction that he knows of. Patient is not on any diuretics. Review of Systems Full 10 system ROS performed. Pt denies symptoms except as noted above in the HPI. Physical Exam Vitals & Measurements T: 36.9 ?C(Oral) HR: 49(Monitored) RR: 20 BP: 131/92 SpO2: 98% HT: 180 cm WT: 78.8 kg BMI: 24.32 VITALS: I have reviewed the triage vital signs. GENERAL: Well developed, well appearing adult in no acute distress. NEURO: Alert and oriented. Moves all extremities. Face is symmetric and expressive. EYES: PERRL. No scleral icterus or conjunctival injection. No discharge. HENT: Normocephalic, atraumatic. Hearing is grossly intact. Nares grossly patent and without discharge. Mucous membranes moist. NECK: No JVD. Patient moves neck without restriction. CARDIO: Rhythm regular. Normal rate. No murmur, rub, or gallop. Pulses equal bilaterally in the upper and lower extremity. No lower extremity edema. PULM: Lungs clear to auscultation in all del real. No wheezes, rales, or rhonchi. No conversational dyspnea. No splinting, stridor, or accessory muscle use. GI/: Abdomen is soft and non-tender. Normoactive bowel sounds. EXTREMITIES: Symmetric muscle bulk. No joint swelling. No clubbing, cyanosis, or deformity. SKIN: Warm and dry. Normal turgor. No rash or lesions appreciated. PSYCH: Mood, affect, and interaction is appropriate to the setting. Medical Decision Making Number and Complexity of Problems Differential Diagnosis: [] [facility] Data External documents reviewed: Not applicable My EKG interpretation: Not applicable My CT interpretation: Not applicable My X-ray interpretation: Not applicable My Ultrasound interpretation: Not applicable Decision rules/scores evaluated: Not applicable Discussed with: Not applicable Treatment and Disposition ED Course: Patient presents ED with complaint of hypokalemia on outpatient labs. Patient labs rechecked in the ED. Patient labs significant for a potassium of 2.5. Due to this, I did give patient oral potassium as well as start IV potassium. Due to the length of time it will be required to replete this patient's potassium, I believe he is appropriate for inpatient treatment. This was discussed with hospitalist who agreed admit patient for IV potassium. Patient admitted to medicine. Shared decision making: As above Code status: Not addressed during this visit Assessment/Plan Hypokalemia (E87.6: Hypokalemia) Orders: potassium chloride, 40 mEq = 2 tab(s), Tab-ER, Oral, Once, Stop date 07/18/23 14:06:00 EDT, STAT, Start date 07/18/23 14:06:00 EDT, 07/18/23 14:06:00 EDT Sodium Chloride 0.9% with KCl 40 mEq/l 1,000 mL, 1,000 mL, IV, 250 mL/hr, for 1 dose(s), Stop date 07/18/23 18:35:00 EDT, Start date 07/18/23 14:36:00 EDT, 4 hour(s), Total volume (mL): 1,000, 78.8 kg, 1.98, m2 Basic Metabolic Panel ECG 12 Lead Adult eGFR Extra Lav Tube Magnesium Level Disposition Plan Discharge Prescription List Prescriptions No active prescription medications Follow-up No qualifying data available Attestation Patient seen and evaluated by the physician assistant athletic trainer. Attending physician was present in the emergency department and supervised care. This visit was performed by both the physician and an APC. I performed all aspects of the MDM as documented. This report was transcribed using voice recognition software. Every effort was made to ensure accuracy, however, inadvertently computerized shoemaking cutter mistakes may be present. Appropriate healthcare PPE was used in evaluating this patient. The patient was placed in a mask. The healthcare provider was wearing mask, gloves, and utilizing proper hand hygiene. All equipment was properly cleansed Problem List/Past Medical History Ongoing Abdominal pain Acid reflux Bleeding per rectum BMI 29.0-29.9,adult Colitis, Clostridium difficile Colon polyps Encounter for vas (more content not included)... Normal [facility] Comment on above: Result Comment: Elec tronically Signed By: Nicholas Presley PA-C\.br\Date and Time Signed: 07/18/23 14:47 EDT\.br\Electronically Co-Signed By: Verna Fuller M.D.\.br\Date and Time Co-Signed: 07/18/23 15:54 EDT ED Patient Education Noteon 07-18-2023 ED Patient Education Note Normal [facility] ED Patient Summaryon 023 ED Patient Summary [place] [id number] Patient Discharge Instructions Person Information Name: LEANDRO BLACK Age: 38 Years Arrival Date: 07/18/2023 12:11:37 Discharge Diagnosis: 1:Hypokalemia; 2:Hyponatremia; 3:Nausea vomiting and diarrhea; 4:Odynophagia; 5:Erythrocytosis; 6:Smoker; 7:Acid reflux; 8:On deep vein thrombosis (DVT) prophylaxis; Diarrhea, unspecified Primary Care Physician: Amber English DO Provider Information Primary Provider: Jonny Walton, Verna Feng Advanced Pre Parole Counseling Aide:Nicholas Presley PA-C The exam and treatment you received in the Emergency Department were for an urgent problem and are not intended as complete care. It is important that you follow up with a doctor, nurse practitioner, or physician?s assistant athletic trainer for ongoing care. If your symptoms become worse or you do not improve as expected and you are unable to reach your usual health care provider, you should return to the Emergency Department. We are available 24 hours a day. LEANDRO BLACK has been given the following list of patient education materials, prescriptions and follow-up instructions: Follow-up Instructions: In the event that this physician does not participate in your insurance network, please consult with your insurance company to find a nearby participating provider. Patient Education Materials: A MESSAGE TO ALL PATIENTS REGARDING OPIOIDS PRESCRIPTION OPIOIDS: WHAT YOU NEED TO KNOW Prescription opioids can be used to help relieve iuycmebz-pe-hplllk pain and are often prescribed following a surgery or injury, or for certain health conditions. These medications can be an important part of the treatment but also come with serious risks. It is important to work with your healthcare provider to make sure you are getting the safest, most effective care. WHAT ARE THE RISKS AND SIDE EFFECTS OF OPIOID USE? Prescription opioids carry serious risks of addiction and overdose, especially with prolonged use. An opioid overdose, often marked by slowed breathing, can cause sudden . The use of prescription opioids can have a number of side effects as well, even when taken as directed: ? Tolerance?meaning you might need to take more of the medication for the same pain relief ? Physical dependence?meaning you have symptoms of withdrawal when a medication is stopped ? Increased sensitivity to pain ? Constipation ? Nausea, vomiting, and dry mouth ? Sleepiness and dizziness ? Confusion ? Depression ? Low levels of testosterone that can result in lower sex drive, energy, and strength ? Itching and sweating RISKS ARE GREATER WITH: ? History of drug misuse, substance use disorder, or overdose ? Mental health conditions (such as depression or anxiety) ? Sleep apnea ? Older age (65 years and older) ? Avoid alcohol while taking prescription opioids. Also, unless specifically advised by your health care provider, medications to avoid include: ? Benzodiazepines (such as Xanax or Valium) ? Muscle relaxants (such as Soma or Flexeril) ? Hypnotics (such as Ambien or Lunesta) ? Other prescription opioids KNOW YOUR OPTIONS Talk to your health care provider about ways to manage your pain that don?t involve prescription opioids. Some of these options may actually work better and have fewer risks and side effects. Options may include: ? Pain relievers such as acetaminophen, ibuprofen, and naproxen ? Some medication that are also used for depression or seizures ? Physical therapy and exercise ? Cognitive behavioral therapy, a psychological, goal-directed approach, in which patients learn how to modify physical, behavioral, and emotional triggers of pain and stress. IF YOU ARE PRESCRIBED OPIOIDS FOR PAIN: ? Never take opioids in greater amounts or more often than prescribed. ? Follow up with your primary health care provider. o Work together to create a plan on how to manage your pain. o Talk about ways to help manage your pain that don?t involve prescription opioids. o Talk about any and all concerns and side effects. ? Help prevent misuse and abuse o Never sell or share prescription opioids. o Never use another person?s prescription opioids. ? Store prescription opioids in a secure place and out of reach of others (this may include visitors, children, friends, and family). ? Safely dispose of unused prescription opioids: Find your community drug take-back program or your pharmacy mail-back program, or flush them down the toilet, following guidance from the Food and Drug Administration (www.fda.gov/Drugs/Res ourcesForYou). ? Visit www.cdc.gov/drugoverdo se to learn about the risks of opioids abuse and overdose. ? If you believe you may be struggling with addiction, tell your health toddler caregiver and ask for guidance or call SAMHSA?S National Helpline at 9-080-338-MYHK. (more content not included)... Normal [facility] Folateon 07-18-2023 Folate [Mass/Vol] 8.8 ng/mL Normal >=6.7 [facility] Comment on above: Performed By: #### 1 [id number], [id number], 0257076, 9788153, 29972760, 5775065, 2675498 #### [facility] [address] [place] [id number] HEMATOLOGYOrdered By: SYSTEM SYSTEM on 07-18-2023 Basophils/100 WBC (Bld) 0.2 % Normal 0.0 - 2.0 % [facility] Basophils/Leukocytes Auto (Bld) [Pure # fraction] 0.0 E9/L Normal 0.0 - 0.2 E9/L [facility] Eosinophils/100 WBC (Bld) 1.4 % Normal 0.0 - 8.0 % [facility] Eosinophils/Leukocyte s Auto (Bld) [Pure # fraction] 0.1 E9/L Normal 0.0 - 0.5 E9/L [facility] Lymphocytes/100 WBC (Bld) 23.3 % Normal 14.0 - 50.0 % [facility] Lymphocytes/Leukocyte s Auto (Bld) [Pure # fraction] 2.4 E9/L Normal 1.0 - 4.0 E9/L [facility] Monocytes/100 WBC (Bld) 11.8 % Normal 4.0 - 14.0 % [facility] Monocytes/Leukocytes Auto (Bld) [Pure # fraction] 1.2 E9/L High 0.2 - 1.0 E9/L [facility] Neutrophils/100 WBC (Bld) 63.3 % Normal 36.0 - 75.0 % [facility] Neutrophils/Leukocyte s Auto (Bld) [Pure # fraction] 6.5 E9/L Normal 2.0 - 7.5 E9/L [facility] HEMATOLOGYOrdered By: Shirlene Manriquez on 07-18-2023 Erythrocyte distribution width (RBC) [Ratio] 13.3 % Normal 10.9 - 14.2 % [facility] Hematocrit (Bld) [Volume fraction] 55.0 % High 37.7 - 49.0 % [facility] Hemoglobin (Bld) [Mass/Vol] 19.0 g/dL High 13.5 - 17.5 gm/dL [facility] MCH (RBC) [Entitic mass] 32.0 pg Normal 27.0 - 34.0 pg [facility] MCHC (RBC) [Mass/Vol] 34.6 g/dL Normal 31.4 - 36.0 gm/dL [facility] HemeAutoSS MCV (RBC) [Entitic vol] 92.5 fL Normal 80.0 - 100.0 fL [facility] Platelet mean volume (Bld) [Entitic vol] 10.4 fL Normal 6.4 - 10.8 fL [facility] Platelets (Bld) [#/Vol] 235.0 E9/L Normal 150.0 - 500.0 E9/L [facility] Heme[facility] RBC (Bld) [#/Vol] 5.9 E12/L Normal 4.3 - 5.9 E12/L [facility] HemeAuto[facility] WBC corrected for nucl RBC Auto (Bld) [#/Vol] 10.3 E9/L Normal 4.0 - 11.0 E9/L [facility] Lipase Levelon 07-18-2023 Lipase [Catalytic activity/Vol] 35 U/L Normal 13-58 [facility] Comment on above: Performed By: #### 1 [id number], [id number], [id number], [id number], [id number], [id number] #### [facility] [address] [place] [address] MagnesiumOrdered By: SYSTEM SYSTEM on 07-18-2023 Magnesium [Mass/Vol] 2.1 mg/dL Normal 1.3-2.4 [facility] Remisol Comment on above: Performed By: #### 1 [id number], [id number], [id number], [id number], [id number], [id number] #### [facility] [address] [place] [address] Monitor Recordon 07-18-2023 Monitor Record [id number]:[id number] Normal [facility] PotassiumOrdered By: SYSTEM SYSTEM on 07-18-2023 Potassium [Moles/Vol] 3.1 mmol/L Low 3.5-5.3 [facility] Comment on above: Performed By: #### 1 [id number], [id number], [id number], [id number], [id number], [id number] #### [facility] [address] [place] [address] TSH With T4fr Reflexon 07-18 TSH Qn 1.39 m[IU]/L Normal 0.34-5.60 [facility] Comment on above: Performed By: #### 1 [id number], [id number], [id number], [id number], [id number], [id number], [id number] #### [facility] [address] [place] [address] URINALYSISOrdered By: Purnima Montero on 07-18-2023 Bilirubin Ql (U) Negative (07/18/23 11:46 PM) Normal Negative [facility] Clarity (U) Clear (07/18/23 11:46 PM) Normal Clear [facility] Color (U) Yellow (07/18/23 11:46 PM) Normal Yellow [facility] Epithelial cells.squamous LM.HPF (Urine sed) [#/Area] 0-2 /HPF Normal 0-2/HPF [facility] Glucose Test strip (U) [Mass/Vol] Negative (07/18/23 11:46 PM) Normal Negative [facility] Hemoglobin Ql (U) Negative (07/18/23 11:46 PM) Normal Negative [facility] Ketones (U) [Mass/Vol] Negative (07/18/23 11:46 PM) Normal Negative [facility] SS Holden.plasma/Lithiu m.RBC (Bld) [Mass ratio] 0-3 /HPF Normal 0-3/HPF [facility] Nitrite Ql (U) Negative (07/18/23 11:46 PM) Normal Negative [facility] pH (U) 7.5 *NA* (07/18/23 11:46 PM) Invalid Interpretation Code 5.0 - 9.0 [facility] Protein (U) [Mass/Vol] Negative (07/18/23 11:46 PM) Normal Negative [facility] Specific gravity (U) [Rel density] <=1.005 *NA* (07/18/23 11:46 PM) Invalid Interpretation Code 1.005 - 1.030 [facility] UA Auto SS UA Spec Desc Clean Catch (07/18/23 11:46 PM) Normal [facility] UA Auto SS Urobilinogen Qn (U) 1.0562405 {Anya'U}/dL Normal 0.0 - 1.0 EU/dL [facility] UA Auto SS WBC Auto Ql (U) Negative (07/18/23 11:46 PM) Normal Negative [facility] UA Auto SS WBC LM.HPF (Urine sed) [#/Area] 0-5 /HPF Normal 0-5/HPF [facility] UA Auto SS Vit B12on 07-18-2023 Cobalamin (Vitamin B12) [Mass/Vol] 1047 pg/mL Normal 50-1500 [facility] Comment on above: Performed By: #### 5 [id number], [id number], [id number] ####[facility] [address] [place] [address] Vitamin D 25 Hydroxyon 07-18 25-hydroxyvitamin D3 [Mass/Vol] 30.4 ng/mL Normal 30.0-100.0 [facility] Comment on above: Result Comment: Vit fregoso D deficiency has been defined as a level of serum 25-OH vitamin D less than 20 ng/mL (1,2) by the [place] [employer] and an Endocrine Society practice guideline. The Endocrine Society further defined vitamin D insufficiency as a level between 21 and 29 ng/mL (2). 1. IOM ([place] [employer]). 2010. Dietary reference intakes for calcium and D. [place]: The National Academies Press. 2. Andreea MF, Sukhjinder NC, Tiffanie STRONG, et al. Evaluation, treatment, and prevention of vitamin D deficiency: an Endocrine Society clinical practice guideline. JCEM. 2010; 96 (7):1911-30. Performed By: #### 5 [id number], [id number], [id number], [id number] ####[facility] [address] [place] [address] eGFRon 07-18-2023 GFR/1.73 sq M.predicted among non-blacks MDRD (S/P/Bld) [Vol rate/Area] 71 mL/min/1.73 m2 Normal >=59 [facility] Comment on above: Order Comment: Order added by Discern Expert. Result Comment: B[employer] Helper terra kidney disease could be indicated at eGFR's of less than 60 mL/min/1.73m2. Kidney failure is indicated at less than 15 mL/min/1.73m2. Performed By: #### 1 [id number], [id number], [id number], [id number], [id number], 0236551, [id number] #### [facility] [address] [place] [address] eGFROrdered By: SYSTEM TelnicE xzoops on 07-18-2023 GFR/1.73 sq M.predicted among non-blacks MDRD (S/P/Bld) [Vol rate/Area] 87 mL/min/1.73 m2 Normal >=59 [facility] Chem S Comment on above: Order Comment: Order added by Discern Expert. Result Comment: Boring [employer] Helper terra kidney disease could be indicated at eGFR's of less than 60 mL/min/1.73m2. Kidney failure is indicated at less than 15 mL/min/1.73m2. Performed By: #### 1 [id number], [id number], 4889736, 8646816, [id number], 1588601, [id number] #### [facility] [address] [place] [address] GFR/1.73 sq M.predicted among non-blacks MDRD (S/P/Bld) [Vol rate/Area] 87 mL/min/1.73 m2 Normal >=59 [facility] Comment on above: Order Comment: Order added by Discern Expert. Result Comment: Boring [employer] Hel[employer] terra kidney disease could be indicated at eGFR's of less than 60 mL/min/1.73m2. Kidney failure is indicated at less than 15 mL/min/1.73m2. Performed By: #### 5 [id number], [id number], [id number], [id number] ####[facility] [address] [place] [address] Ambulatory Visit Summaryon 0 07-11-2023 Ambulatory Visit Summary LEANDRO BLACK :1985 Visit Date:07/11/2023 Ambulatory Visit Instructions Your Diagnosis Epigastric pain Nausea and vomiting Acid reflux Gastric erosions History of colon polyps Your Care Team Attending Physician - Cyndee Snell CNP Primary Care Physician - Amber English DO This Is Your Medications List omeprazole (omeprazole 40 mg Cap-) Contact prescribing physician if questions or concerns famotidine (Pepcid) vancomycin (vancomycin 125 mg Cap) Procedures Performed Colonoscopy (05/06/2023), Esophagogastroduodenos copy (05/06/2023), Vasectomy (01/11/2022), Laparoscopic repair of incisional hernia (03/13/2021), History of lumbar fusion (02/24/2020), Colonoscopy (06/01/2019), Esophagogastroduodenos copy (06/01/2019), Colonoscopy. Discharge Vitals Temperature (Temporal Artery) 36.5 ?C Heart Rate (Peripheral) 72 Blood Pressure 124/83 Height 180 cm Height 71 in Weight 86.4 kg Weight 190.08 lb BMI 26.67 What to do next You Need to Schedule the Following Appointments Follow Up with Cyndee Snell CNP When: Within 1 month Where: You Need to Complete the Following Amylase Level, Blood, Routine collect, 07/11/23, Order for future visit, Lab Collect, Epigastric pain Invalid Interpretation Code Nausea and vomiting, Print Label By Order Location\.br\ MRI Cholangiogram Pancreatography (mrcp), 07/11/23, Routine, Order for Future Visit, Transport Mode: Ambulatory, Reason: Other (please specify), Reason: epigastric pain, No, No, Epigastric pain [facility] Gastroenterology Office/Clin ic Noteon 07-11-2023 Gastroenterology Office/Clinic Note Chief Complaint Vomiting, diarrhea and abdominal pain. HPI Staff This is a 38 year old male who presents today for a follow-up from 05/23/23 and US results. Patient is also requesting Omeprazole refills. Patient c/o vomiting, abdominal pain and diarrhea. History of Present Illness Patient is a 38-year-old male who presents for follow-up. Patient was previously evaluated 04/[address] scan that showed colitis. Patient was previously evaluated by Dr. Asencio 01/2023 and note had indicated patient was having abdominal pain, diarrhea, and vomiting. Note also indicated that patient had reported her diarrhea has mostly resolved. Patient was treated previously for C. difficile infection with vancomycin. Patient had previous EGD/colonoscopy 04/2023. Patient reported during visit with me 04/2023 that he was experiencing epigastric pain over the last 2 years with associated diarrhea and vomiting that comes and goes. He reported that epigastric pain, vomiting and diarrhea had improved. He reported having diarrhea and would break out in a cold sweat with vomiting. He reported taking probiotics occasionally that were helping his diarrhea. He also indicated taking Pepcid 20 mg nearly every day that was helping his symptoms. Is also taking omeprazole 40 mg daily. He indicated he drinks 30 beers a week over the last 20 years. Patient was educated to continue omeprazole 40 mg daily and to start Pepcid 20 mg at bedtime. Patient was also educated to limit alcohol use and to follow-up with PCP to assist in decreasing alcohol use. Patient was also educated regarding fiber supplementation daily. Patient was also ordered CBC/CMP and ultrasound of abdomen. No labs available to review during today's encounter. Ultrasound of right upper quadrant was unremarkable 05/2023. Previous CT with PCP showed colitis. EGD completed 05/06/2023 revealed normal esophagus, moderate gastric erosions, normal duodenum, duodenal biopsy within normal limits, stomach biopsy revealed inactive gastritis, negative for intestinal metaplasia, negative for H. pylori?Dr. Asencio recommended for patient to avoid NSAIDs and alcohol. Colonoscopy completed 05/06/2023 revealed normal terminal ileum, normal colonic mucosa, 2 tubular adenomas removed from transverse colon, hemorrhoids?Dr. Asencio recommended for patient to have repeat colonoscopy in 7 years?2029. During today's visit, patient reports he is still having epigastric pain described as achy over the last 2 years, occurring nearly every day. Is also having associated nausea/vomiting with epigastric pain that is occurring 3 times a week with associated cold sweats. He explains nausea/vomiting occurs at times tomato based products. Is having 1 formed BM daily. He reports acid reflux is well-controlled with omeprazole 40mg daily and pepcid 20mg at bedtime. He reports he is currently drinking 6 beers 2 times a week- reports he is trying to cut down on alcohol use. Is having 1 formed BM daily. Denies black/bloody stools, fevers, and denies having any other GI complaints. Review of Systems ROS - Provider Constitutional: no fever, yes cold sweats with vomiting. Skin: no Jaundice. ENMT: Denies dysphagia and heartburn. Respiratory: no shortness of breath. Cardiovascular: no chest pain. Gastrointestinal: yes nausea, yes vomiting, no diarrhea, no GI bleeding. Physical Exam Vitals & Measurements T: 36.5 ?C(Temporal Artery) HR: 72(Peripheral) BP: 124/83 HT: 71 in HT: 180 cm WT: 86.4 kg WT: 190.08 lb BMI: 26.67 General: Well developed, well nourished, in no acute distress Head: Normocephalic/atraumat ic Lungs: Normal respiratory effort and clear to auscultation Cardio: Regular rate and rhythm, normal S1 and S2, no murmur, no rub Abdomen: Soft, non-distended, non-tender. Normoactive bowel sounds present in all 4 abdominal quadrants, bilaterally. Mental Status: Alert and oriented x3. Normal mood and affect Assessment/Plan 1. Epigastric pain (R10.13: Epigastric pain) Is having epigastric pain described as achy over the last 2 years, occurring nearly every day. Is also having associated nausea/vomiting with epigastric pain that is occurring 3 times a week with associated cold sweats. He explains nausea/vomiting occurs at times tomato based products. EGD completed 05/06/2023 revealed normal esophagus, moderate gastric erosions, normal duodenum, duodenal biopsy within normal limits, stomach biopsy revealed inactive gastritis, negative for intestinal metaplasia, negative for H. pylori. Avoid NSAIDs and alcohol. Ordered amylase and lipase level. Educated to complete previously ordered CBC/CMP. Continue omeprazole 40mg daily and pepcid 20mg at bedtime. Ordered MRCP to further evaluate epigastric pain, N/V. Recent ultrasound of abdomen was unremarkable- see HPI for details regarding. Educated if improvement or worsening symptoms to be further evaluated in ED?patient verbalizes understanding. Ordered: Amylase Level Lipase Level MRI Chol (more content not included)... Normal [facility] Comment on above: Result Comment: Elec tronically Signed By: Cyndee Snell CNP\.zach\Date and Time Signed: 07/11/23 11:00 EDT Patient Educationon 07-11-20 Patient Education Gastroenterology Peptic Ulcer A peptic ulcer is a sore in the lining of the stomach (gastric ulcer) or the first part of the small intestine (duodenal ulcer). The ulcer causes a gradual wearing away (erosion) of the deeper tissue. What are the causes? Normally, the lining of the stomach and the small intestine protects them from the acid that digests food. The protective lining can be damaged by: ? An infection caused by a type of bacteria called Helicobacter pylori or H. pylori. ? Regular use of NSAIDs, such as ibuprofen or aspirin. ? Rare tumors in the stomach, small intestine, or pancreas (Ruben?Andrade syndrome). What increases the risk? The following factors may make you more likely to develop this condition: ? Smoking. ? Having a family history of ulcer disease. ? Drinking alcohol. ? Having been hospitalized in an intensive care unit (ICU). What are the signs or symptoms? Symptoms of this condition include: ? Persistent burning pain in the area between the chest and the belly button. The pain may be worse on an empty stomach and at night. ? Heartburn. ? Nausea and vomiting. ? Bloating. If the ulcer results in bleeding, it can cause: ? Black, tarry stools. ? Vomiting of bright red blood. ? Vomiting of material that looks like coffee grounds. How is this diagnosed? This condition may be diagnosed based on: ? Your medical history and a physical exam. ? Various tests or procedures, such as: ? Upper endoscopy. The health care provider examines the esophagus, stomach, and small intestine using a small flexible tube that has a video camera at the end. ? Blood tests, stool tests, or breath tests to check for the H. pylori bacteria. ? An X-ray exam (upper gastrointestinal series) of the esophagus, stomach, and small intestine. ? A biopsy to help find certain causes of ulcers. A tissue sample is removed during upper endoscopy to be examined under a microscope. How is this treated? Treatment for this condition may include: ? Eliminating the cause of the ulcer, such as smoking or use of NSAIDs, and limiting alcohol and caffeine intake. ? Medicines to reduce the amount of acid in your digestive tract. ? Antibiotic medicines, if the ulcer is caused by an H. pylori infection. ? An upper endoscopy may be used to treat a bleeding ulcer. ? Surgery. This may be needed if the bleeding is severe or if the ulcer created a hole somewhere in the digestive system. Follow these instructions at home: ? Do not drink alcohol if your health care provider tells you not to drink. ? Do not use any products that contain nicotine or tobacco. These products include cigarettes, chewing tobacco, and vaping devices, such as e-cigarettes. If you need help quitting, ask your health care provider. ? Take rzap-acw-cmbxneq and prescription medicines only as told by your health care provider. ? Do not use llfw-uoq-kovqqcy medicines in place of prescription medicines unless your health care provider approves. ? Do not take aspirin, ibuprofen, or other NSAIDs unless your health care provider tells you to. ? Keep all follow-up visits. This is important. Contact a health care provider if: ? Your symptoms do not improve within 7 days of starting treatment. ? You have ongoing indigestion or heartburn. Get help right away if: ? You have sudden, sharp, or persistent pain in your abdomen. ? You have bloody or dark black, tarry stools. ? You vomit blood or material that looks like coffee grounds. ? You become light-headed or you feel faint. ? You become weak. ? You become sweaty or clammy. These symptoms may be an emergency. Get help right away. Call 911. ? Do not wait to see if the symptoms will go away. ? Do not drive yourself to the hospital. Summary ? A peptic ulcer is a sore in the lining of the stomach (gastric ulcer) or the first part of the small intestine (duodenal ulcer). The ulcer causes a gradual wearing away (erosion) of the deeper tissue. ? Do not use any products that contain nicotine or tobacco. These products include cigarettes, chewing tobacco, and vaping devices, such as e-cigarettes. If you need help quitting, ask your health care provider. ? Take mqgs-zet-fhblaem and prescription medicines only as told by your health care provider. Do not use hhcf-eml-vlqjvuc medicines in place of prescription medicines unless your health care provider approves. ? Limit your alcohol and caffeine intake. ? Keep all follow-up visits. This is important. This information is not intended to replace advice given to you by your health care provider. Make sure you discuss any questions you have with your health care provider. Document Revised: 06/22/2022 Document Reviewed: 06/22/2022 [employer] Patient Education ? 2022 [employer] Consent for Treatmenton 07-0 Consent for Treatment [id number] 0CD:127 Normal [facility] US Abdomen, Limitedon 2022 US Abdomen, Limited Exam Date/Time: 05/29/2023 09:53 EDT Reason for Exam: Upper abdomen;Abdominal pain Report IMPRESSION: Unremarkable ultrasound of the right upper quadrant. EXAMINATION: US Abdomen, Limited HISTORY: Abdominal pain, Upper abdomen. TECHNIQUE: Sonography of the right upper quadrant was performed. Images were obtained and stored in a permanent archive.\[id number]\ COMPARISON: Ultrasound 03/17/2019 RESULT: Pancreas: Normal sonographic appearance of the visualized portions. Liver: Normal echotexture, echogenicity, surface contour. No focal lesion. Gallbladder: Normal caliber without cholelithiasis, sludge, wall thickening, pericholecystic fluid. Biliary Ducts: No intrahepatic or extrahepatic bile duct dilation. CBD measures 0.4 cm. Right Kidney: Imaged portions unremarkable. Ascites: None. Ordering Provider: , FINAL REPORT Dictated: 05/29/2023 3:12 pm Can Kay MD Signed (Electronic Signature): 05/29/2023 3:12 pm Signed by: Can Kay MD Transcribed by: ANSLEY Technologist: [facility] Reminderson 05-27-2023 Reminders - From: Cyndee Snell CNP To: Madonna Mckeon; Sent: 05/23/2023 11:09:59 EDT Show up: 05/23/2023 11:10:00 EDT Subject: Ambulatory Reminder Reminder/Recall Colonoscopy in 2029. 05/06/[address] asencio From: Madonna Mckeon To: FREDDY - Reminders/Recalls; Sent: 05/27/2023 10:21:33 EDT ! Show up: 03/25/2030 10:21:00 EDT Due Date/Time: 04/25/2030 10:21:00 EDT [facility] Ambulatory Visit Summaryon 0 05-23-2023 Ambulatory Visit Summary LEANDRO BLACK :1985 Visit Date:05/23/2023 Ambulatory Visit Instructions Your Diagnosis Gastric erosions Colon polyps Hemorrhoids Epigastric pain Vomiting Diarrhea Your Care Team Attending Physician - Cyndee Snell CNP Primary Care Physician - Amber English DO This Is Your Medications List Contact prescribing physician if questions or concerns omeprazole (omeprazole 40 mg Cap-DR) vancomycin (vancomycin 125 mg Cap) Procedures Performed Colonoscopy (05/06/2023), Esophagogastroduodenos copy (05/06/2023), Vasectomy (01/11/2022), Laparoscopic repair of incisional hernia (03/13/2021), History of lumbar fusion (02/24/2020), Colonoscopy (06/01/2019), Esophagogastroduodenos copy (06/01/2019), Colonoscopy. Discharge Vitals Temperature (Temporal Artery) 36.5 ?C Heart Rate (Peripheral) 82 Blood Pressure 111/72 Height 180 cm Height 71 in Weight 87.1 kg Weight 191.62 lb BMI 26.88 What to do next Scheduled Follow-Up Appointments 2022 10:20 AM EDT With: Cyndee Snell CNP Where: [facility] Invalid Interpretation Code Vomiting [facility] Gastroenterology Office/Clin ic Noteon 05-23-2023 Gastroenterology Office/Clinic Note Chief Complaint Diarrhea, nausea and vomiting. HPI Staff Patient is a 38 year old male here today to review results from EGD and colonoscopy. History of Present Illness Patient is a 38-year-old male who presents for follow-up from EGD/colonoscopy completed 05/06/[address] Asencio. Patient was previously evaluated 02/20/[address] Asencio for further evaluation of colitis on CT scan. Note also indicated patient with abdominal pain, diarrhea, vomiting. Note also indicated that patient reported that her diarrhea had mostly resolved. Note also indicated patient was having bright red blood and black stool. Patient was treated with antibiotics for colitis. Note also indicated patient was treated for C. difficile infection with vancomycin. Patient was ordered EGD/colonoscopy EGD completed 05/06/2023 revealed normal esophagus, moderate gastric erosions, normal duodenum, duodenal biopsy within normal limits, stomach biopsy revealed inactive gastritis, negative for intestinal metaplasia, negative for H. pylori?Dr. Asencio recommended for patient to avoid NSAIDs and alcohol. Colonoscopy completed 05/06/2023 revealed normal terminal ileum, normal colonic mucosa, 2 tubular adenomas removed from transverse colon, hemorrhoids?Dr. Asencio recommended for patient to have repeat colonoscopy in 7 years?2029. Denies FH colon cancer or colon polyps. During today's visit, patient reports he has been experiencing epigastric pain over the last 2 years with associated diarrhea and vomiting that comes and goes. He explains epigastric pain, vomiting, and diarrhea have improved. He explains when he is having diarrhea, he will break out in cold sweat with vomiting. Is currently having 1 formed BM daily. Is taking probiotics occasionally that helps diarrhea. He explains pepcid 20mg nearly every day that is helping epigastric pain, vomiting, and diarrhea. Is having vomiting that is occurring 2-3 times a week. He is also taking omeprazole 40mg daily. Has occasional heartburn. Is currently drinking 30 beers a week over the last 20 years. Denies black/bloody stools, fevers/chills, diarrhea, and denies having any other GI complaints. Review of Systems PHQ Score Initial Depression Screen Score: 0 ROS - Provider Constitutional: no fever, no chills. Skin: no Jaundice. ENMT: Denies dysphagia. Yes occasional heartburn. Respiratory: no shortness of breath. Cardiovascular: no chest pain. Gastrointestinal: no nausea, yes vomiting, no diarrhea, no GI bleeding. Physical Exam Vitals & Measurements T: 36.5 ?C(Temporal Artery) HR: 82(Peripheral) BP: 111/72 HT: 71 in HT: 180 cm WT: 87.1 kg WT: 191.62 lb BMI: 26.88 General: Well developed, well nourished, in no acute distress Head: Normocephalic/atraumat ic Lungs: Normal respiratory effort and clear to auscultation Cardio: Regular rate and rhythm, normal S1 and S2, no murmur, no rub Abdomen: Soft, non-distended, non-tender. Normoactive bowel sounds present in all 4 abdominal quadrants, bilaterally. Mental Status: Alert and oriented x3. Normal mood and affect Assessment/Plan 1. Gastric erosions (K25.9: Gastric ulcer, unspecified as acute or chronic, without hemorrhage or perforation) EGD completed 05/06/2023 revealed normal esophagus, moderate gastric erosions, normal duodenum, duodenal biopsy within normal limits, stomach biopsy revealed inactive gastritis, negative for intestinal metaplasia, negative for H. pylori. Continue omeprazole 40mg daily and educated to start pepcid 20mg at bedtime. Drinks 30 beers a week- educated to limit ETOH use and follow-up with PCP to assist in decreasing ETOH use. Avoid NSAIDs and ETOH. 2. Colon polyps (K63.5: Polyp of colon) Colonoscopy completed 05/06/2023 revealed normal terminal ileum, normal colonic mucosa, 2 tubular adenomas removed from transverse colon, hemorrhoids?Dr. Asencio recommended for patient to have repeat colonoscopy in 7 years?2029. Educated regarding fiber supplementation daily- Metamucil 1 capsule daily-instructed regarding use. 3. Hemorrhoids (K64.9: Unspecified hemorrhoids) Colonoscopy completed 05/06/2023 revealed normal terminal ileum, normal colonic mucosa, 2 tubular adenomas removed from transverse colon, hemorrhoids?Dr. Asencio recommended for patient to have repeat colonoscopy in 7 years?2029. Educated regarding fiber supplementation daily- Metamucil 1 capsule daily-instructed regarding use. 4. Epigastric pain (R10.13: Epigastric pain) Has been experiencing epigastric pain over the last 2 years with associated diarrhea and vomiting that comes and goes. He explains epigastric pain, vomiting, and diarrhea have improved. EGD completed 05/06/2023 revealed normal esophagus, moderate gastric erosions, normal duodenum, duodenal biopsy within normal limits, stomach biopsy revealed inactive gastritis, negative for intestinal metaplasia, negative for H. pylori. Continue omeprazole 40mg daily. Educated to take pepcid 20mg at bedtime. Ordered CBC/CMP. Ordered limited ultr (more content not included)... [facility] Comment on above: Result Comment: Elec tronically Signed By: Cyndee Snell CNP\.zach\Date and Time Signed: 05/23/23 11:10 EDT Patient Educationon 05-23-20 Patient Education Oncology Colon Polyps Colon polyps are tissue growths inside the colon, which is part of the large intestine. They are one of the types of polyps that can grow in the body. A polyp may be a round bump or a mushroom-shaped growth. You could have one polyp or more than one. Most colon polyps are noncancerous (benign). However, some colon polyps can become cancerous over time. Finding and removing the polyps early can help prevent this. What are the causes? The exact cause of colon polyps is not known. What increases the risk? The following factors may make you more likely to develop this condition: ? Having a family history of colorectal cancer or colon polyps. ? Being older than 45 years of age. ? Being younger than 45 years of age and having a significant family history of colorectal cancer or colon polyps or a genetic condition that puts you at higher risk of getting colon polyps. ? Having inflammatory bowel disease, such as ulcerative colitis or Crohn's disease. ? Having certain conditions passed from parent to child (hereditary conditions), such as: ? Familial adenomatous polyposis (FAP). ? Townsend syndrome. ? Turcot syndrome. ? Peutz?Jeghers syndrome. ? MUTYH-associated polyposis (MAP). ? Being overweight. ? Certain lifestyle factors. These include smoking cigarettes, drinking too much alcohol, not getting enough exercise, and eating a diet that is high in fat and red meat and low in fiber. ? Having had childhood cancer that was treated with radiation of the abdomen. What are the signs or symptoms? Many times, there are no symptoms. If you have symptoms, they may include: ? Blood coming from the rectum during a bowel movement. ? Blood in the stool (feces). The blood may be bright red or very dark in color. ? Pain in the abdomen. ? A change in bowel habits, such as constipation or diarrhea. How is this diagnosed? This condition is diagnosed with a colonoscopy. This is a procedure in which a lighted, flexible scope is inserted into the opening between the buttocks (anus) and then passed into the colon to examine the area. Polyps are sometimes found when a colonoscopy is done as part of routine cancer screening tests. How is this treated? This condition is treated by removing any polyps that are found. Most polyps can be removed during a colonoscopy. Those polyps will then be tested for cancer. Additional treatment may be needed depending on the results of testing. Follow these instructions at home: Eating and drinking ? Eat foods that are high in fiber, such as fruits, vegetables, and whole grains. ? Eat foods that are high in calcium and vitamin D, such as milk, cheese, yogurt, eggs, liver, fish, and broccoli. ? Limit foods that are high in fat, such as fried foods and desserts. ? Limit the amount of red meat, precooked or cured meat, or other processed meat that you eat, such as hot dogs, sausages, barrientos, or meat loaves. ? Limit sugary drinks. Lifestyle ? Maintain a healthy weight, or lose weight if recommended by your health care provider. ? Exercise every day or as told by your health care provider. ? Do not use any products that contain nicotine or tobacco, such as cigarettes, e-cigarettes, and chewing tobacco. If you need help quitting, ask your health care provider. ? Do not drink alcohol if: ? Your health care provider tells you not to drink. ? You are , may be , or are planning to become . ? If you drink alcohol: ? Limit how much you use to: ? 0?1 drink a day for women. ? 0?2 drinks a day for men. ? Know how much alcohol is in your drink. In the [place] one drink equals one 12 oz bottle of beer (355 mL), one 5 oz glass of wine (148 mL), or one 1? oz glass of hard liquor (44 mL). General instructions ? Take ifqu-[id number] and prescription medicines only as told by your health care provider. ? Keep all follow-up visits. This is important. This includes having regularly scheduled colonoscopies. Talk to your health care provider about when you need a colonoscopy. Contact a health care provider if: ? You have new or worsening bleeding during a bowel movement. ? You have new or increased blood in your stool. ? You have a change in bowel habits. ? You lose weight for no known reason. Summary ? Colon polyps are tissue growths inside the colon, which is part of the large intestine. They are one type of polyp that can grow in the body. ? Most colon polyps are noncancerous (benign), but some can become cancerous over time. ? This condition is diagnosed with a colonoscopy. ? This condition is treated by removing any polyps that are found. Most polyps can be removed during a colonoscopy. This information is not intended to replace advice given to you by your health care provider. Make sure you discuss any questions you have with your health care provider. Document Revised: 03/01/2021 D (more content not included)... [facility] Reminderson 05-23-2023 Reminders - From: Cyndee Snell CNP To: [place], [place]onna; Sent: 05/23/2023 10:58:51 EDT Show up: 05/23/2023 10:59:00 EDT Subject: Ambulatory Reminder Reminder/Recall Colonoscopy in 2029. [facility] IntraOperative Documentson 0 05-17-2023 IntraOperative Documents [id number]:127 [facility] Postoperative Documentson Postoperative Documents [id number] 0CD:127 [facility] AMYLASEon 01-28-2023 Amylase [Catalytic activity/Vol] 38 U/L Normal 25-115 [facility] Comment on above: Performed By: #### L IPA, LIVER, AMBER #### [facility] [address] [place] [address] Dr. Jannette Colbert CBC AUTO DIFFon 01-28-2023 BASO # 0.1 103/ul Normal 0.0-0.1 [facility] Comment on above: Performed By: #### C BC #### [facility] [address] [place] [address] Dr. Jannette Colbert Basophils/100 WBC (Bld) 0.7 % Normal 0.2-2.0 [facility] Comment on above: Performed By: #### C BC #### [facility] [address] [place] [address] Dr. Jannette Colbert EO # 0.1 103/ul Normal 0.0-0.7 [facility] Comment on above: Performed By: #### C BC #### [facility] [address] [place] [address] Dr. Jannette Colbert Eosinophils/100 WBC (Bld) 1.0 % Normal 0.9-7.0 [facility] Comment on above: Performed By: #### C BC #### [facility] [address] [place] [address] Dr. Jannette Colbert Erythrocyte distribution width (RBC) [Ratio] 13.0 % Normal 11.0-15.0 [facility] Comment on above: Performed By: #### C BC #### [facility] [address] [place] [address] Dr. Jannette Colbert Hematocrit (Bld) [Volume fraction] 46.8 % Normal 42.0-54.0 [facility] Comment on above: Performed By: #### C BC #### [facility] [address] [place] [address] Dr. Jannette Colbert Hemoglobin (Bld) [Mass/Vol] 16.4 g/dL Normal 14.0-18.0 [facility] Comment on above: Performed By: #### C BC #### [facility] [address] [place] [address] Dr. Jannette Colbert IG # 0.05 10e3/ul Critically high 0.00-0.03 [facility] Comment on above: Performed By: #### C BC #### [facility] [address] [place] [address] Dr. Jannette Colbert IG % 0.5 % Normal 0.0-0.5 [facility] Comment on above: Performed By: #### C BC #### [facility] [address] [place] [address] Dr. Jannette Colbert LYMPH # 1.9 103/ul Normal 1.2-3.8 [facility] Comment on above: Performed By: #### C BC #### [facility] [address] [place] [address] Dr. Jannette Colbert Lymphocytes/100 WBC (Bld) 17.8 % Critically low 20.5-60.0 [facility] Comment on above: Performed By: #### C BC #### [facility] [address] [place] [address] Dr. Jannette Colbert MANUAL DIFF REQ NO Normal [facility] Comment on above: Performed By: #### C BC #### [facility] [address] [address] [address] Jannette Colbert MCH (RBC) [Entitic mass] 31.9 pg Normal 25.9-34.0 [facility] Comment on above: Performed By: #### C BC #### [facility] [address] [place] [address] Dr. Jannette Colbert MCHC (RBC) [Mass/Vol] 35.0 g/dL Normal 29.9-35.2 [facility] Comment on above: Performed By: #### C BC #### [facility] [address] [place] [address] Dr. Jannette Colbert MCV (RBC) [Entitic vol] 91.1 fL Normal 80.0-94.0 [facility] Comment on above: Performed By: #### C BC #### [facility] [address] [place] [address] Dr. Jannette Colbert MONO # 0.6 103/ul Normal 0.3-0.8 [facility] Comment on above: Performed By: #### C BC #### [facility] [address] [place] [address] Dr. Janntete Colbert Monocytes/100 WBC (Bld) 5.6 % Normal 1.7-12.0 [facility] Comment on above: Performed By: #### C BC #### [facility] [address] [place] [address] Dr. Jannette Colbert NEUT # 8.0 103/ul Critically high 1.4-6.5 [facility] Comment on above: Performed By: #### C BC #### [facility] [address] [place] [address] Dr. Jannette Colbert Neutrophils/100 WBC (Bld) 74.4 % Normal 43.0-75.0 [facility] Comment on above: Performed By: #### C BC #### [facility] [address] [place] [address] Dr. Jannette Colbert Platelet mean volume (Bld) [Entitic vol] 11.6 fL Normal 9.5-13.5 [facility] Comment on above: Performed By: #### C BC #### [facility] [address] [address] [address] Jannette Colbert PLT 254 103/ul Normal 150-450 [facility] Comment on above: Performed By: #### C BC #### [facility] [address] [address] [address] Jannette Colbert RBC 5.14 106/ul Normal 4.70-6.10 [facility] Comment on above: Performed By: #### C BC #### [facility] [id number] Jannette Colbert WBC 10.7 103/ul Normal 4.0-11.0 [facility] Comment on above: Performed By: #### C BC #### [facility] [address] [address] ABD/PELV W CONon 01-29-20 CT ABD/PELV W CON CLINICAL HISTORY: UNSPECIFIED ABDOMINAL PAIN. Diarrhea, vomiting. EXAMINATION: Enhanced CT scan of the abdomen and pelvis: 01/28/2023. COMPARISON: None. TECHNIQUE: 3 mm axial images from lung bases through ischial tuberosities following administration of intravenous contrast were obtained. No oral contrast was utilized. Sagittal and coronal reconstructions were also performed. Dose reduction techniques were achieved by using automated exposure control and/or adjustment of mA and/or kV according to patient size and/or use of iterative reconstruction technique. FINDINGS: The visualized lung bases seem normal. The heart size seems normal. There are no filling defects in the visualized cardiac chambers. The patient has a small sliding-type hiatus hernia. CT ABDOMEN: There is a low-attenuation lesion in the lateral segment of left hepatic lobe which measures approximately 6 mm in size. The liver is homogeneously low in attenuation compatible with fatty liver without discrete lesions. Gallbladder, spleen, pancreas, adrenal glands, kidneys appear normal. The abdominal aorta is moderately atherosclerotic. There is no retroperitoneal or mesenteric adenopathy. The small bowel loops are of normal caliber. There is diffusely thickened colon with enhancing wall, some induration of surrounding fat. There are a few scattered diverticula but no diverticulitis. There is a normal-appearing appendix. Thickening of the colon extends from cecum to the level of rectosigmoid. CT PELVIS: There is no ureterolithiasis. The bladder is incompletely distended therefore some thickening of the wall. The prostate seems mildly enlarged. The overall size of the prostate seems to be approximately 4.1 x 4.8 cm. There is no pelvic adenopathy. There are no focal fluid collections. The visualized soft tissues demonstrate no gross abnormalities except for previous fusion extending from L3 through S1 with interbody fusion at L4-L5, L5-S1. IMPRESSION: 1. There is diffusely thickened colon from the cecum to the level of rectosigmoid, concerning for colitis either inflammatory or infectious and could account for patient's symptoms. Even though there are few scattered diverticula but no diverticulitis. 2. Normal appendix. 3. No nephro or ureterolithiasis. 4. Prostatomegaly. 5. Fatty liver. Electronically authenticated by: ALBERTO ALONZO Date: 2023-01-28 10:15 Normal [facility] URINE PROFILEon 3 Bilirubin Ql (U) SMALL Abnormal NEGATIVE [facility] Comment on above: Performed By: #### E RUR #### [facility] [address] [place] [address] Dr. Jannette Colbert Clarity (U) CLEAR Normal CLEAR [facility] Comment on above: Performed By: #### E RUR #### [facility] [address] [place] [address] Dr. Jannette Colbert Color (U) DK. ORANGE Abnormal YELLOW [facility] Comment on above: Performed By: #### E RUR #### [facility] [address] [place] [address] Dr. Jannette POOND A micrscopic examination will be performed if indicated. Normal [facility] Comment on above: Performed By: #### E RUR #### [facility] [address] [place] [address] Dr. Jannette Colbert Glucose Ql (U) Negative Normal NEGATIVE [facility] Comment on above: Performed By: #### E RUR #### [facility] [address] [place] [address] Dr. Jannette Colbert Hemoglobin Ql (U) Negative Normal NEGATIVE [facility] Comment on above: Performed By: #### E RUR #### [facility] [address] [place] [address] Dr. Jannette Colbert Ketones Ql (U) TRACE Abnormal NEGATIVE [facility] Comment on above: Performed By: #### E RUR #### [facility] [address] [place] [address] Dr. Jannette Colbert LEUKOCYTES Negative Normal NEGATIVE [facility] Comment on above: Performed By: #### E RUR #### [facility] [address] [place] [address] Dr. Jannette Colbert Nitrite Ql (U) Negative Normal NEGATIVE [facility] Comment on above: Performed By: #### E RUR #### [facility] [address] [place] [address] Dr. Jannette Colbert pH (U) 7.0 [pH] Normal 5-9 [facility] Comment on above: Performed By: #### E RUR #### [facility] [address] [place] [address] Dr. Jannette Colbert Protein (U) [Mass/Vol] 100 mg/dL Abnormal NEGATIVE/ TRACE [facility] Comment on above: Performed By: #### E RUR #### [facility] [address] [place] [address] Dr. Jannette Colbert SPEC GRAVITY 1.020 Normal 1.005-<=1.025 [facility] Comment on above: Performed By: #### E RUR #### [facility] [address] [place] [address] Dr. Jannette Colbert UR MICRO IND NOT INDICATED Normal [facility] Comment on above: Performed By: #### E RUR #### [facility] [address] [place] [address] Dr. Jannette Colbert Urobilinogen Qn (U) 1.0 {Anya'U}/dL Normal 0.2 - 1. 0 [facility] Comment on above: Performed By: #### E RUR #### [facility] [address] [place] [address] Dr. Jannette Colbert LIPASEon 01-28-2023 Lipase [Catalytic activity/Vol] 69.0 U/L Critically low 73.0-393.0 [facility] Comment on above: Performed By: #### L IPA, LIVER, AMBER #### [facility] [address] [address] [address] Jannette Colbert LIVER PROFILEon 01-28-2023 Albumin [Mass/Vol] 4.4 g/dL Normal 3.4-5.0 [facility] Comment on above: Performed By: #### L IPA, LIVER, AMBER #### [facility] [address] [address] [address] Jannette Colbert Albumin/Globulin [Mass ratio] 1.0 {ratio} Normal [facility] Comment on above: Performed By: #### L IPA, LIVER, AMBER #### [facility] [address] [place] [address] Dr. Jannette Colbert ALP [Catalytic activity/Vol] 61 U/L Normal 46-116 [facility] Comment on above: Performed By: #### L IPA, LIVER, AMBER #### [facility] [address] [address] [address] Jannette Colbert ALT [Catalytic activity/Vol] 55 U/L Normal 16-63 [facility] Comment on above: Performed By: #### L IPA, LIVER, AMBER #### [facility] [address] [place] [address] Dr. Jannette Colbert AST [Catalytic activity/Vol] 47 U/L Critically high 15-37 [facility] Comment on above: Performed By: #### L IPA, LIVER, AMBER #### [facility] [address] [address] [address] Jannette Colbert BILI, CONJUGATED 0.1 mg/dL Normal 0.0-0.2 [facility] Comment on above: Performed By: #### L IPA, LIVER, AMBER #### [facility] [address] [place] [address] Dr. Jannette Colbert Bilirubin [Mass/Vol] 0.7 mg/dL Normal 0.2-1.0 [facility] Comment on above: Performed By: #### L IPA, LIVER, AMBER #### [facility] [address] [place] [address] Dr. Jannette Colbert Globulin (S) [Mass/Vol] 4.3 g/dL Normal [facility] Comment on above: Performed By: #### L IPA, LIVER, AMBER #### [facility] [address] [place] [address] Dr. Jannette Colbert Protein [Mass/Vol] 8.7 g/dL Critically high 6.4-8.2 [facility] Comment on above: Performed By: #### L IPA, LIVER, AMBER #### [facility] [address] [place] [address] Dr. Jannette Colbert PROF CHEM 8 (BAS METB)on Anion gap [Moles/Vol] 16.5 mmol/L Normal [facility] Comment on above: Performed By: #### B MP #### [facility] [address] [place] [address] Dr. Jannette Colbert Calcium [Mass/Vol] 9.8 mg/dL Normal 8.5-10.1 [facility] Comment on above: Performed By: #### B MP #### [facility] [address] [place] [address] Dr. Jannette Colbert Chloride [Moles/Vol] 103 mmol/L Normal 98-107 [facility] Comment on above: Performed By: #### B MP #### [facility] [address] [place] [address] Dr. Jannette Colbert CO2 [Moles/Vol] 26.0 mmol/L Normal 21.0-32.0 [facility] Comment on above: Performed By: #### B MP #### [facility] [address] [place] [address] Dr. Jannette Colbert Creatinine [Mass/Vol] 0.92 mg/dL Normal 0.70-1.30 [facility] Comment on above: Performed By: #### B MP #### [facility] [address] [place] [address] Dr. Jannette Colbert EGFR-AF MALTESE >60 Normal >=60 [facility] Comment on above: Performed By: #### B MP #### [facility] [address] [place], [place] [id number] Dr. Jannette Colbert EGFR-NON AF MALTESE >60 Normal >=60 [facility] Comment on above: Performed By: #### B MP #### [facility] [address] [address] [address] Jannette Colbert Glucose [Mass/Vol] 146 mg/dL Critically high 74-106 [facility] Comment on above: Performed By: #### B MP #### [facility] [address] [address] [address] Jannette Colbert Potassium [Moles/Vol] 3.5 mmol/L Normal 3.5-5.1 [facility] Comment on above: Performed By: #### B MP #### [facility] [address] [address] [address] Jannette Colbert Sodium [Moles/Vol] 142 mmol/L Normal 136-145 [facility] Comment on above: Performed By: #### B MP #### [facility] [address] [address] [address] Jannette Colbert Urea nitrogen [Mass/Vol] 9.0 mg/dL Normal 7.0-18.0 [facility] Comment on above: Performed By: #### B MP #### [facility] [address] [address] [address] Jannette Colbert Urea nitrogen/Creatinine [Mass ratio] 9.8 mg/mg Normal [facility] Comment on above: Performed By: #### B MP #### [facility] [address] [place] [address] Dr. Jannette Colbert XR FOOT RT MIN 3 VIEWSon XR FOOT RT MIN 3 VIEWS X-RAY OF THE right foot HISTORY: C/O: a pain COMPARISON: There are no previous studies available for comparison. TECHNIQUE: 3 views of the right foot. FINDINGS: BONE DENSITY: Normal. JOINTS: No acute abnormality. FRACTURE: No acute fracture. DISLOCATION: None. SOFT TISSUES: No radiopaque foreign body. IMPRESSION: No acute osseous or joint abnormality. No radiopaque foreign body. Electronically authenticated by: STEPHANIE HARRIS Date: 2022-10-08 14:15 Normal [facility] Social History Date Type Detail Facility Start: 02-20-2023 End: 08-27-2023 Tobacco smoking status Heavy tobacco smoker (finding) [facility] Tobacco smoking status Never [facility] Sex Assigned At Male [facility] Vital Signs Date Time Vital Sign Value Performing Clinician Facility 11-14-2023 12:58-0500 Hourly Rounding Yuan Paster [facility] 11-14-2023 12:58-0500 Promise to Return Yuan Paster [facility] 11-14-2023 11:59-0500 Hourly Rounding Yuan Paster [facility] 11-14-2023 11:59-0500 Promise to Return Yuan Paster [facility] 11-14-2023 10:58-0500 Heart rate 58 /min Yuan Paster [facility] 11-14-2023 10:58-0500 SaO2% (BldA) [Mass fraction] 94 % Yuan Paster [facility] 11-14-2023 10:58-0500 Diastolic blood pressure 59 mm[Hg] Yuan Paster [facility] 11-14-2023 10:58-0500 Mean blood pressure 76 mm[Hg] Yuan Paster [facility] 11-14-2023 10:58-0500 Systolic blood pressure 109 mm[Hg] Yuan Paster [facility] 11-14-2023 10:58-0500 Body temperature 98.06 [degF] Yuan Paster [facility] 11-14-2023 10:40-0500 Hourly Rounding Yuan Paster [facility] 11-14-2023 10:40-0500 Promise to Return Yuan Paster [facility] 11-14-2023 07:51-0500 Heart rate 48 /min Yuan Paster [facility] 11-14-2023 07:51-0500 SaO2% (BldA) [Mass fraction] 98 % Yuan Paster [facility] 11-14-2023 07:51-0500 Diastolic blood pressure 68 mm[Hg] Yuan Paster [facility] 11-14-2023 07:51-0500 Mean blood pressure 89 mm[Hg] Yuan Paster [facility] 11-14-2023 07:51-0500 Systolic blood pressure 130 mm[Hg] Yuan Paster [facility] 11-14-2023 07:00-0500 Body temperature 98.6 [degF] Yuan Paster [facility] 11-14-2023 05:08-0500 Diastolic blood pressure 82 mm[Hg] Yuan Paster [facility] 11-14-2023 05:08-0500 Systolic blood pressure 130 mm[Hg] Yuan Paster [facility] 11-14-2023 04:06-0500 Body temperature 98.06 [degF] Yuan Paster [facility] 11-14-2023 04:06-0500 Heart rate 46 /min Yuan Paster [facility] 11-14-2023 04:06-0500 Mean blood pressure 107 mm[Hg] Yuan Paster [facility] 11-14-2023 01:39-0500 Blood Pressure Location Yuan Paster [facility] 11-14-2023 01:39-0500 Mean blood pressure 73 mm[Hg] Yuan Paster [facility] 11-13-2023 20:29-0500 Mean blood pressure 91 mm[Hg] Yuan Paster [facility] 11-13-2023 14:03-0500 Heart rate 49 /min Yuan Paster [facility] 11-13-2023 13:30-0500 Mean blood pressure 99 mm[Hg] Yuan Paster [facility] 11-13-2023 13:30-0500 Respiratory rate 19 /min Yuan Paster [facility] 11-13-2023 13:00-0500 Respiratory rate 26 /min Yuan Paster [facility] 11-13-2023 12:30-0500 Respiratory rate 22 /min Yuan Paster [facility] 11-13-2023 10:05-0500 Heart rate 78 /min Yuna Paster [facility] 11-13-2023 10:05-0500 Respiratory rate 18 /min Yuan Paster [facility] 08-27-2023 08:28-0400 Blood Pressure Location Cyndeebharat MarinChanning [facility] 08-27-2023 08:28-0400 Body temperature 97.7 [degF] Cyndeebharat MarinChanning [facility] 08-27-2023 08:28-0400 Diastolic blood pressure 78 mm[Hg] Cyndee Channing [facility] 08-27-2023 08:28-0400 Heart rate 85 /min Cyndeebharat MarinChanning [facility] 08-27-2023 08:28-0400 Systolic blood pressure 113 mm[Hg] Cyndeebharat MarinChanning [facility] 07-25-2023 09:44-0400 Blood Pressure Location Cyndee Snell [facility] 07-25-2023 09:44-0400 Body temperature 97.52 [degF] Cyndee Snell [facility] 07-25-2023 09:44-0400 Diastolic blood pressure 72 mm[Hg] Cyndee Snell [facility] 07-25-2023 09:44-0400 Heart rate 77 /min Cyndee Snell [facility] 07-25-2023 09:44-0400 Systolic blood pressure 110 mm[Hg] Cyndee Snell [facility] 07-19-2023 12:12-0400 Hourly Rounding Peña Gr [facility] 07-19-2023 12:12-0400 Promise to Return Peña Vaughner [facility] 07-19-2023 11:30-0400 Hourly Rounding Peña Vaughner [facility] 07-19-2023 11:30-0400 Promise to Return Peña Vaughner [facility] 07-19-2023 10:44-0400 Heart rate 54 /min Peña Meyercker [facility] 07-19-2023 10:44-0400 SaO2% (BldA) [Mass fraction] 99 % Peña Meyercker [facility] 07-19-2023 10:44-0400 Diastolic blood pressure 81 mm[Hg] Peña Vaughner [facility] 07-19-2023 10:44-0400 Mean blood pressure 95 mm[Hg] Peña Vaughner [facility] 07-19-2023 10:44-0400 Systolic blood pressure 125 mm[Hg] Peña Vaughner [facility] 07-19-2023 10:43-0400 Body temperature 98.42 [degF] Peña Vaughner [facility] 07-19-2023 10:30-0400 Hourly Rounding Peña Gr [facility] 07-19-2023 10:30-0400 Promise to Return Peña Vaughner [facility] 07-19-2023 09:00-0400 Heart rate 62 /min Peña Vaughner [facility] 07-19-2023 07:28-0400 Heart rate 48 /min Peña Vaughner [facility] 07-19-2023 07:28-0400 SaO2% (BldA) [Mass fraction] 99 % Peña Vaughner [facility] 07-19-2023 07:28-0400 Diastolic blood pressure 72 mm[Hg] Peña Vaughner [facility] 07-19-2023 07:28-0400 Mean blood pressure 90 mm[Hg] Peña Vaughner [facility] 07-19-2023 07:28-0400 Systolic blood pressure 128 mm[Hg] Peña Meyercker [facility] 07-19-2023 07:28-0400 Body temperature 98.42 [degF] Peña Meyercker [facility] 07-19-2023 02:19-0400 SaO2% (BldA) [Mass fraction] 97 % Peña Vaughner [facility] 07-19-2023 02:18-0400 Diastolic blood pressure 77 mm[Hg] Peña Vaughner [facility] 07-19-2023 02:18-0400 Mean blood pressure 97 mm[Hg] Peña Vaughner [facility] 07-19-2023 02:18-0400 Systolic blood pressure 136 mm[Hg] Peña Vaughner [facility] 07-19-2023 02:17-0400 Body temperature 98.24 [degF] Peña Vaughner [facility] 07-18-2023 23:57-0400 Blood Pressure Location Peña Vaughner [facility] 07-18-2023 23:57-0400 Mean blood pressure 105 mm[Hg] Peña Vaughner [facility] 07-18-2023 23:57-0400 Respiratory rate 20 /min Peña Vaughner [facility] 07-18-2023 16:00-0400 Mean blood pressure 89 mm[Hg] Peña Vaughner [facility] 07-18-2023 15:48-0400 Mean blood pressure 101 mm[Hg] Peña Vaughner [facility] 07-18-2023 15:48-0400 Respiratory rate 20 /min Peña Meyercker [facility] 07-18-2023 14:03-0400 Respiratory rate 20 /min Peña Meyercker [facility] 07-18-2023 12:18-0400 Body temperature 98.42 [degF] Peña Vaughner [facility] 07-18-2023 12:18-0400 Heart rate 74 /min Peña Gr [facility] 07-18-2023 12:18-0400 Respiratory rate 18 /min Peña Gr [facility] 07-11-2023 10:28-0400 Blood Pressure Location Cyndee Channing [facility] 07-11-2023 10:28-0400 Body temperature 97.7 [degF] Cyndee Channing [facility] 07-11-2023 10:28-0400 Diastolic blood pressure 83 mm[Hg] Cyndee Channing [facility] 07-11-2023 10:28-0400 Heart rate 72 /min Cyndee Channing [facility] 07-11-2023 10:28-0400 Systolic blood pressure 124 mm[Hg] Cyndee Channing [facility] 05-23-2023 10:34-0400 Blood Pressure Location Cyndee Channing [facility] 05-23-2023 10:34-0400 Body temperature 97.7 [degF] Cyndee Channing [facility] 05-23-2023 10:34-0400 Diastolic blood pressure 72 mm[Hg] Cyndee Channing [facility] 05-23-2023 10:34-0400 Heart rate 82 /min Cyndee Channing [facility] 05-23-2023 10:34-0400 Systolic blood pressure 111 mm[Hg] Cyndee Channing [facility] 02-20-2023 09:06-0400 Blood Pressure Location Resendez SALAM [facility] 02-20-2023 09:06-0400 Diastolic blood pressure 90 mm[Hg] Resendez SALAM [facility] 02-20-2023 09:06-0400 Heart rate 92 /min Resendez SALAM [facility] 02-20-2023 09:06-0400 Respiratory rate 16 /min Resendez SALAM [facility] 02-20-2023 09:06-0400 SaO2% (BldA) [Mass fraction] 95 % Resendez SALAM [facility] 02-20-2023 09:06-0400 Systolic blood pressure 128 mm[Hg] Resendez SALAM [facility] Functional Status Date Assessment Result Facility 11-13-2023 Functional Status N/A [facility] 11-13-2023 Functional Status [facility] 08-27-2023 Functional Status N/A [facility] 07-25-2023 Functional Status N/A [facility] 07-18-2023 Functional Status No [facility] 07-18-2023 Functional Status [facility] 07-11-2023 Functional Status N/A [facility] 05-23-2023 Functional Status N/A [facility] 02-20-2023 Functional Status N/A [facility] Clinical Notes 05-23-2023 to 11-15-2023 Note Date & Type Note Facility 11-15-2023 Note Admission and Discha rge Information Admitting Physician - Yuan Whitley DO Consulting Physician - [facility] Cardio, XXXX Joaquin ROMANO, Armando ROSA MD, Can Pascual Admitting Diagnoses: Discharge Order Date Discharge Patient - Ordered -- 11/14/23 13:01:00 EST, Pt. left AMA, d/c AMA order placed per policy. Discharge Diagnoses 1. Hypokalemia, 11/13/2023 2. Bradycardia on ECG, 11/14/2023 3. Elevated WBC count, 11/13/2023 4. Gastroenteritis, 11/13/2023 5. Nausea and vomiting, 11/13/2023 6. Acid reflux, 11/13/2023 7. Smoker, 11/13/2023 8. History of alcohol abuse, 11/13/2023 9. On deep vein thrombosis (DVT) prophylaxis, 11/14/2023 Abdominal pain, 11/13/2023 Diarrhea, 11/13/2023 Nausea, 11/13/2023 Vomiting, 11/13/2023 Procedure History Colonoscopy (05/06/2023), Esophagogastroduodenoscopy (05/06/2023), Vasectomy (01/11/2022), Laparoscopic repair of incisional hernia (03/13/2021), History of lumbar fusion (02/24/2020), Colonoscopy (06/01/2019), Esophagogastroduodenoscopy (06/01/2019), Colonoscopy. Hospital Course Refer to my APSO & AMA note Physical Exam Vitals & Measurements T: 36.7 ?C(Oral) HR: 58(Monitored) BP: 109/59 SpO2: 94% Not completed as pt. left AMA prior to my arrival to the room Laboratory Results Automated Diff (11/14/2023) Neutro Auto - 74.2 % Lymph Auto - 18.3 % Shackelford Auto - 5.8 % Eos Auto - 0.7 % Basophil Auto - 1.0 % Neutro Absolute - 8.9 E9/L Lymph Absolute - 2.2 E9/L Shackelford Absolute - 0.7 E9/L Eos Absolute - 0.1 E9/L Basophil Absolute - 0.1 E9/L B-Type Natriuretic Peptide (11/14/2023) BNP - 10 pg/mL BMP (11/14/2023) Glucose Lvl - 112 mg/dL BUN - 19 mg/dL Creatinine - 0.8 mg/dL BUN/Creat Ratio - 24 Sodium Lvl - 135 mmol/L Potassium Lvl - 3.5 mmol/L Chloride - 98 mmol/L CO2 - 30 mmol/L AGAP - 11 mEq/L Calcium Lvl - 8.7 mg/dL BMP (11/13/2023) Glucose Lvl - 110 mg/dL BUN - 23 mg/dL Creatinine - 0.9 mg/dL BUN/Creat Ratio - 26 Sodium Lvl - 136 mmol/L Potassium Lvl - 2.6 mmol/L Chloride - 91 mmol/L CO2 - 33 mmol/L AGAP - 15 mEq/L Calcium Lvl - 9.4 mg/dL CBC w/ Auto Diff (11/14/2023) WBC - 12.0 E9/L RBC - 4.5 E12/L Hgb - 14.1 gm/dL Hct - 40.2 % MCV - 89.7 fL MCH - 31.5 pg MCHC - 35.1 gm/dL RDW - 12.7 % Platelet - 232.0 E9/L MPV - 10.1 fL eGFR (11/14/2023) eGFR - >60 mL/min/1.73 m2 Hepatic Function Panel (11/13/2023) Alk Phos - 36 Int._Unit/L ALT - 14 Int._Unit/L AST - 20 Int._Unit/L Total Protein - 8.1 gm/dL Albumin Lvl - 4.9 gm/dL Globulin - 3.2 gm/dL A/G Ratio - 1.5 Bili Total - 0.8 mg/dL Bili Direct - 0.1 mg/dL Bili Indirect - 0.7 mg/dL Influenza A&B Ag (11/13/2023) Influenzae A Ag - NEGATIVE1 Influenzae B Ag - NEGATIVE1 Lipase Level (11/13/2023) Lipase Lvl - 13 unit/L Magnesium Level (11/14/2023) Magnesium - 2.1 mg/dL Phosphorus Level (11/13/2023) Phosphorus - 4.1 mg/dL Potassium Level (11/13/2023) Potassium Lvl - 3.1 mmol/L Rapid COVID Antigen ([facility]) (11/13/2023) Rapid COVID Ag - Not Detected Rapid COV Int NEG Ctl - Pass Rapid COV Int POS Ctl - Pass Troponin 0 Hr. (11/14/2023) Troponin - 3.40 pg/mL Troponin 3 Hr. (11/14/2023) Troponin - 3.90 pg/mL UA With Cult Reflex (11/13/2023) UA Spec Desc - Clean Catch UA Color - Yellow2 UA Clarity - Clear2 UA Spec Grav - 1.020 UA pH - 7.0 UA Protein - 1+ UA Glucose - NEGATIVE1 UA Ketones - Trace2 UA Bili - NEGATIVE1 UA Blood - NEGATIVE1 UA Nitrite - NEGATIVE1 UA Urobilinogen - 1.0 UA Leuk Est - NEGATIVE1 UA RBC - 0-3 UA Squam Epithelial - 0-2 UA WBC - 0-5 UA Bacteria - Trace2 UA Amorph Naye - Present Tests Performed Automated Diff B-Type Natriuretic Peptide BMP BMP CBC w/ Auto Diff eGFR Hepatic Function Panel Influenza A&B Ag Lipase Level Magnesium Level Phosphorus Level Potassium Level Rapid COVID Antigen ([facility]) Troponin 0 Hr. Troponin 3 Hr. UA With Cult Reflex CT Abdomen/Pelvis w/o Contrast Echo Transthoracic Complete Discharge Plan Discharge Disposition Discharge To, Anticipated II - Home with responsible caregiver Discharged to - Home independently Discharge Medication List Prescriptions famotidine 20 mg Tab, 20 mg= 1 tab(s), Oral, Bedtime, 1 refills, Still taking, not as prescribed: has not taken in a few weeks Pantoprazole [address] Tab, 40 mg= 1 tab(s), Oral, Daily, 1 refills, Still taking, not as prescribed: has not taken in a few weeks Home sildenafil 50 mg Tab, 50 mg= 1 tab(s), Oral, Daily, PRN Follow-up No qualifying data available Attestation Dr. Whitley aware. [facility] Comment on above: Result Comment: Elec tronically Signed By: Gely MCALLISTER\.br\Date and Time Signed: 11/15/23 07:15 EST\.br\Electronically Co-Signed By: Yuan Whitley DO.br\Date and Time Co-Signed: 11/15/23 10:05 EST 11-14-2023 Note Basic Information 38 year old male with history of colitis, etoh abuse in remission, admitted with N/V and hypokalemia Chief Complaint Pt. came here d/t diarrhea, n/v and abdl pain that started Saturday. Pt was dx with colitis and got hx of low potassium as well. History of Present Illness Leandro Black is a 38-year-old male with past medical history positive for C. difficile colitis 01/2023, smoker, GERD. He has history of alcohol abuse, now in remission- no etoh x 4 months. He presented to ER 11/13/23 with 3 day history of nausea, vomiting, diarrhea. Reports 2-3 bouts of emesis per day. Loose stool multiple times per day. No fever. Abdominal pain with emesis, otherwise no pain. Labs in ER revealed hypokalemia with K+ 2.6, WBC 12.4. He was given IVF and IV as well as PO KCl replacement. He is admitted for electrolyte correction and monitoring overnight Review of Systems Constitutional: + Fatigue, no fever no chills Eye: Negative. Ear/Nose/Mouth/Throat: Negative. Respiratory: Negative Cardiovascular: Negative. Gastrointestinal: Some generalized abdominal pain with emesis. Passing flatus. Last bowel movement: today Genitourinary: + Decreased urine output. Hematology/Lymphatics: Negative. Endocrine: Negative. Immunologic: Negative Musculoskeletal: Negative. Integumentary: Negative. Neurologic: Alert and oriented X4. Psychiatric: Negative. Additional ROS info: Except as noted in the above Review of Systems and in the History of Present Illness all other systems have been reviewed and are negative or noncontributory Scoring Lee Fall Risk Score: 35 (11/13/23) Physical Exam Vitals & Measurements T: 36.8 ?C(Oral) HR: 54(Monitored) RR: 19 BP: 119/84 SpO2: 95% HT: 177 cm WT: 82 kg General: Calm, no distress Head: Normocephalic/atraumatic Eyes: PERRLA, Conjunctivae and sclerae normal, HEENT: Mucous membrane dry. Tongue dry, lips cracked Neck: Trachea midline, neck supple, Chest: No chest wall deformity, no chest wall tenderness Lungs: CTA del real. Cardio: Normal rate, currently in RSR, no edema. Pulses: Normal capillary refill Abdomen: Normal inspection, + BS, soft, non-tender- no hepato/splenomegaly Musculoskeletal: No deformity or scoliosis noted. Integumentary: Warm, dry, intact Extremity: No clubbing, no edema Neurologic: Alert, oriented x4, follows commands, Mental status: Pleasant & cooperative, cooperative Lab Results WBC: 12.4 E9/L High (11/13/23 10:25:00) RBC: 5 E12/L (11/13/23 10:25:00) HGB: 15.7 gm/dL (11/13/23 10:25:00) Hct: 44.5 % (11/13/23 10:25:00) MCV: 88.6 fL (11/13/23 10:25:00) MCH: 31.3 pg (11/13/23 10:25:00) MCHC: 35.3 gm/dL (11/13/23 10:25:00) RDW: 12.8 % (11/13/23 10:25:00) Platelet: 251 E9/L (11/13/23 10:25:00) MPV: 9.5 fL (11/13/23 10:25:00) Neutro Auto: 77.6 % High (11/13/23 10:25:00) Lymph Auto: 15.2 % (11/13/23 10:25:00) Shackelford Auto: 6.4 % (11/13/23 10:25:00) Eos Auto: 0.4 % (11/13/23 10:25:00) Basophil Auto: 0.4 % (11/13/23 10:25:00) Neutro Absolute: 9.6 E9/L High (11/13/23 10:25:00) Lymph Absolute: 1.9 E9/L (11/13/23 10:25:00) Shackelford Absolute: 0.8 E9/L (11/13/23 10:25:00) Eos Absolute: 0.1 E9/L (11/13/23 10:25:00) Basophil Absolute: 0 E9/L (11/13/23 10:25:00) Glucose Lvl: 110 mg/dL (11/13/23 10:25:00) BUN: 23 mg/dL High (11/13/23 10:25:00) Creatinine: 0.9 mg/dL (11/13/23 10:25:00) eGFR: >60 (11/13/23 10:25:00) BUN/Creat Ratio: 26 High (11/13/23 10:25:00) Sodium Lvl: 136 mmol/L (11/13/23 10:25:00) Potassium Lvl: 2.6 mmol/L Critical (11/13/23 10:25:00) Chloride: 91 mmol/L Low (11/13/23 10:25:00) CO2: 33 mmol/L High (11/13/23 10:25:00) AGAP: 15 mEq/L (11/13/23 10:25:00) Calcium Lvl: 9.4 mg/dL (11/13/23 10:25:00) Alk Phos: 36 Int._Unit/L (11/13/23 10:25:00) ALT: 14 Int._Unit/L (11/13/23 10:25:00) AST: 20 Int._Unit/L (11/13/23 10:25:00) Total Protein: 8.1 gm/dL High (11/13/23 10:25:00) Albumin Lvl: 4.9 gm/dL (11/13/23 10:25:00) Globulin: 3.2 gm/dL (11/13/23 10:25:00) A/G Ratio: 1.5 (11/13/23 10:25:00) Bili Total: 0.8 mg/dL (11/13/23 10:25:00) Bili Direct: 0.1 mg/dL (11/13/23 10:25:00) Bili Indirect: 0.7 mg/dL (11/13/23 10:25:00) Lipase Lvl: 13 unit/L (11/13/23 10:25:00) Influenzae A Ag: NEGATIVE1 (11/13/23 11:01:00) Influenzae B Ag: NEGATIVE1 (11/13/23 11:01:00) Rapid COVID Ag: Not Detected (11/13/23 11:01:00) Rapid COV Int NEG Ctl: Pass (11/13/23 11:01:00) Rapid COV Int POS Ctl: Pass (11/13/23 11:01:00) Assessment/Plan 1. Hypokalemia (E87.6: Hypokalemia) Secondary to GI loss, decreased PO intake -Replace with IV/PO in ER, repeat level this evening and supplement -Mg 2.2 -Daily BMP Ordered: 2. Gastroenteritis (K52.9: Noninfective gastroenteritis and colitis, unspecified) Established with Dr Asencio as out patient, seen by GI OBSTETRICS/GYNECOLOGY NURSE in August 2023: EGD completed 05/06/2023 revealed normal esophagus, moderate gastric erosions, normal duodenum, duodenal biopsy within normal limits, stomach biopsy revealed in (more content not included)... [facility] Comment on above: Result Comment: Elec tronically Signed By: Jannette HANSON CNP\.br\Date and Time Signed: 11/13/23 18:04 EST\.br\Electronically Co-Signed By: Jannette HANSON CNP\.br\Date and Time Co-Signed: 11/13/23 19:02 EST\.br\Electronically Co-Signed By: Yuan Whitley DO\.br\Date and Time Co-Signed: 11/14/23 14:27 EST 11-14-2023 Evaluation + Plan note Extrac princess from: Title:APSO Note Author:Gely MCALLISTER ate:11/14/23 1. Hypokalemia (E87.6: Hypok alemia) Acute on chronic 2/2 GI loss 2/2 colitis -Pt. states he stopped home KCL tx. on his own as he didn't feel he needed it -Replete K/Mag prn -Will need rx. at d/c -Trend labs 2. Bradycardia on ECG (R00.1: Bradycardia, unspecified) Ongoing - 40 - 50 range - asymptomatic -Echo: pending -Consult FT/HV: -Trend trop x 4 sets - pending -TSH/T4 - pending -Lipid panel - pending 3. Elevated WBC count (D72.829: Elevated white blood cell count, unspecified) Ongoing, no fever/chills, cough sputum prod., symptoms of URI/resp. complaints -Flu A&B, COVID Ag - neg -CT A/P: lung bases are clear -UA - no infectious process -See below 4. Gastroenteritis (K52.9: Noninfective gastroenteritis and colitis, unspecified) Hx. of Cdiff colitis i(01/2023) in the setting of chronic alcohol use + diarrhea x 3 days -CT A/P: No acute process, + diverticulosis/no diverticulitis -Cdiff, enteric panel - pending -PPI -Pain mgt. -See below 5. Nausea and vomiting (R11.2: Nausea with vomiting, unspecified) 2/2 above - ongoing this a.m. -05/06/2023 EGD: Gastric erosions, normal duodenum, normal esophagus. -IVF 2L to date, -IV anti-emetic prn -Increase PPI to BID, add carafate QID -Consult GI: pending 6. Acid reflux (K21.9: Gastro-esophageal reflux disease without esophagitis) -PPI 7. Smoker (F17.200: Nicotine dependence, unspecified, uncomplicated) Educated on need for smoking cessation -Nicotine patch if requested 8. History of alcohol abuse (F10.11: Alcohol abuse, in remission) Last use 4 mths ago 9. On deep vein thrombosis (DVT) prophylaxis (Z79.899: Other assisted (current) drug therapy) -Heparin sq with early ambulation Orders: acetaminophen, 650 mg = 2 tab(s), Oral, q6hr, PRN Pain, Refills(s) 0 potassium chloride, 10 mEq = 1 cap(s), Oral, Daily, # 30 cap(s), Refills(s) 0, Pharmacy: [facility]/pharmacy #[id number], 180, cm, 07/18/23 12:20:00 EDT, Height/Length Dosing, 78.8, kg, 07/18/23 12:20:00 EDT, Weight Dosing potassium chloride, 40 mEq = 2 tab(s), Tab-ER, Oral, Once, Stop date 11/14/23 8:00:00 EST, Routine, Start date 11/14/23 8:00:00 EST, 11/14/23 7:34:00 EST sucralfate, 1 gram = 10 mL, Susp-Oral, Oral, QIDACHS, Routine, Start date 11/14/23 11:30:00 EST Communication Order Physician to Nursing Consult to Gastroenterology CT Abdomen/Pelvis w/o Contrast Drug Screen Urine -Plan discussed w/ patient, nursing staff and CRM. This report was transcribed using voice recognition software. Every effort was made to ensure accuracy, however, inadvertently computerized shoemaking cutter mistakes may be present. Extracted from: Title:Consult Note Author:SHELLEY ROMANO, Can Baeza te:11/14/23 Bradycardia: Patient present s with asymptomatic bradycardia in the face of nausea, vomiting, dehydration and hypokalemia. Recommend replacing his potassium to keep it above 4.0. His magnesium is adequately controlled. Recommend he undergo a 2D echo with Doppler to evaluate his LV function, pulmonary pressures and valvular status. Would recommend a series of troponins to rule out myocardial infarction or ischemia. At some point once his GI condition has improved he may be evaluated with a walking stress/MPI or stress echocardiogram. I strongly encouraged the patient to discontinue all tobacco products. This may assist with his colitis as well. Recommend checking his TSH and T4 to determine if he has any hypothyroidism. Would recommend obtaining a vascular profile. Would not recommend baby aspirin at this time unless his troponins become positive. Thank you very much for the opportunity to participate in the cardiac care of your patient. Consultation time took place between 730 and 8 AM. Patient may follow- up with Dr. Rosa going forward. 1. Hypokalemia (E87.6: Hypokalemia) 2. Elevated WBC count (D72.829: Elevated white blood cell count, unspecified) 3. Gastroenteritis (K52.9: Noninfective gastroenteritis and colitis, unspecified) 4. Nausea and vomiting (R11.2: Nausea with vomiting, unspecified) 5. Acid reflux (K21.9: Gastro-esophageal reflux disease without esophagitis) 6. Smoker (F17.200: Nicotine dependence, unspecified, uncomplicated) 7. History of alcohol abuse (F10.11: Alcohol abuse, in remission) 8. On deep vein thrombosis (DVT) prophylaxis (Z79.899: Other superintendent terminal (current) drug therapy) Orders: Echo Transthoracic Complete T4 & TSH Troponin 0 Hr. Troponin 3 Hr. Troponin 6 Hr. Extracted from: Title:Admission H & P Author:Jannette HANSON CNP Date:11/13/23 1. Hypokalemia (E87.6: Hypok alemia) Secondary to GI loss, decreased PO intake -Replace with IV/PO in ER, repeat level this evening and supplement -Mg 2.2 -Daily BMP Ordered: 2. Gastroenteritis (K52.9: Noninfective gastroenteritis and colitis, unspecified) Established with Dr Asencio as out patient, seen by GI OBSTETRICS/GYNECOLOGY NURSE in August 2023: EGD completed 05/06/2023 revealed normal esophagus, moderate gastric erosions, normal duodenum, duodenal biopsy within normal limits, stomach biopsy revealed inactive gastritis, negative for intestinal metaplasia, negative for H. pylori. [1] -Check stool: Cdiff and enteric panel -If no clinical improvement, consult GI in am Ordered: 3. Elevated WBC count (D72.829: Elevated white blood cell count, unspecified) Secondary to above, trend labs -CBC in am Ordered: 4. Nausea and vomiting (R11.2: Nausea with vomiting, unspecified) -IV antiemetics -Clear liquids, advance diet as tolerate -Consult GI for failure to resolve Ordered: 5. Acid reflux (K21.9: Gastro-esophageal reflux disease without esophagitis) -PPI resumed, not taking Pepcid as out patient Ordered: pantoprazole, 40 mg = 1 tab(s), Tab-DR, Oral, Daily, Routine, Start date 11/14/23 9:00:00 EST 6. Smoker (F17.200: Nicotine dependence, unspecified, uncomplicated) -Nicotine patch declined We strongly recommend to quit tobacco use. Cigarette smoking harms nearly every organ of the body, causes many diseases, and reduces the health of smokers in general. Quitting smoking lowers your risk for smoking-related diseases and can add years to your life. We encourage you to visit www.smokefree.gov access to helpful resources including free telephone support. If you decide on prescription treatment to help you quit, we would be happy to provide these. Ordered: 7. History of alcohol abuse (F10.11: Alcohol abuse, in remission) - 4 months in remission, continued abstinence Ordered: Orders: acetaminophen, 650 mg = 2 tab(s), Tab, Oral, q6hr PRN Pain, Routine, Start date 11/13/23 12:34:00 EST, 11/13/23 12:34:00 EST heparin, 5,000 unit(s) = 1 mL, Injection, SubCutaneous, BID for 30 day(s), Stop date 12/13/23 20:59:00 EST, Routine, Start date 11/13/23 21:00:00 EST, 11/13/23 12:34:00 EST ondansetron, 4 mg = 2 mL, Injection, IV Push, q6hr PRN Nausea, Routine, Start date 11/13/23 12:34:00 EST, 11/13/23 12:34:00 EST promethazine, 12.5 mg = 0.5 mL, Injection, IV Push, q6hr PRN Nausea, Routine, Start date 11/13/23 12:34:00 EST, 11/13/23 12:34:00 EST Sodium Chloride 0.9% intravenous solution 1,000 mL, 1,000 mL, IV, 75 mL/hr, Routine, Start date 11/13/23 12:34:00 EST, 13.3 hour(s), Total volume (mL): 1,000, 82 kg, 2.01, m2 Basic Metabolic Panel Below the Knee Intermittent Pneumatic Compression Device Cardiac Monitoring CBC w/ Auto Diff Clear Liquid Diet Clostridium Difficile PCR Enteric Panel by PCR Evaluate Need For Continued Telemetry Intake and Output Magnesium Level Notify Provider Vital Signs Notify Provider Vital Signs Oxygen Protocol Potassium Level Pulse Oximetry Resuscitation Status - Full Saline Lock Convert From IV Up ad Pamella Vital Signs Weight Anticipate < 2 [place] hospital stay Discussed above with Dr Whitley. Extracted from: Title:ED Note Author:Jenny MAYORGA, Bruna Mcclellan ate:11/13/23 1. Hypokalemia (E87.6: Hypok alemia) 2. Colitis (K52.9: Noninfective gastroenteritis and colitis, unspecified) 3. Nausea and vomiting (R11.2: Nausea with vomiting, unspecified) Orders: famotidine, 20 mg = 2 mL, Soln-IV, IV Push, Once, Stop date 11/13/23 11:22:00 EST, STAT, Start date 11/13/23 11:22:00 EST, 11/13/23 11:22:00 EST Lactated Ringers Injection, 1,000 mL, Soln-IV, IV, Once, Stop date 11/13/23 11:21:00 EST, STAT, Start date 11/13/23 11:21:00 EST, Infuse over 61, minute(s) ondansetron, 4 mg = 2 mL, Injection, IV Push, Once, Stop date 11/13/23 11:24:00 EST, STAT, Start date 11/13/23 11:24:00 EST, 11/13/23 11:24:00 EST potassium chloride, 40 mEq = 2 tab(s), Tab-ER, Oral, Once, Stop date 11/13/23 11:22:00 EST, STAT, Start date 11/13/23 11:22:00 EST, 11/13/23 11:22:00 EST potassium chloride + Generic Diluent 100 mL, 20 mEq = 100 mL, IV Piggyback, q2hr for 2 dose(s), Stop date 11/13/23 15:21:00 EST, STAT, Start date 11/13/23 11:22:00 EST, 50 mL/hr, Infuse over 2 hour(s), 11/13/23 11:22:00 EST Add on Test ED Physician consult Hospitalist for continued care Influenza A&B Ag Rapid COVID Antigen ([facility]) Future Appointments Appointment Date:11/27/2023 08:20:00 AM Scheduled Provider:Cyndee Snell CNP Location:[facility] Appointment Type:[facility] Follow Up Diagnostic Tests Pending * T4 & TSH 11/15/23 * Lipid Panel 11/15/23 Future Scheduled Tests Radiology* XR Esophagus 08/27/23 [facility]12-21-2023 NoteEchocardiology Procedure Exam Date/Time Accession # Ordering Echo Transthoracic 11/14/2023 11:01 EST [id number] Can ROSA MD Complete CPT code [id number] Reason for Exam (Echo Transthoracic Complete) Bradycardia;Other (please specify) Report [facility] [address] [place] [address] Adult Echocardiogram Report Name: LEANDRO BLACK Study Date: 11/14/2023 10:07 AM BP: 130/82 mmHg Patient Location: 3S [id number] [facility] HR: 45 : 1985 Gender: Male Height: 71 in Age: 38 yrs Ethnicity: T Weight: 183 lb Reason For Study: Bradycardia BSA: 2.0 m2 History: Smoker-Yes Ordering Physician: SHELLEY^Jacqueline Performed By: Naomi Morrell RDCS Interpretation Summary No comparison study is available. Ejection Fraction = 60-65%. The left ventricular wall motion is normal. Grade I diastolic dysfunction, (abnormal relaxation pattern). Right ventricular systolic pressure is 33 mmHg. Procedure A complete two-dimensional transthoracic echocardiogram was performed (2D, M- mode, spectral and color flow Doppler). Study quality is good. I WMSI = 1.00 % Normal = 100 Segments Size X - Cannot 2 - 1-2 small Interpret 1 - Normal Hypokinetic 3 - Akinetic 4 - Dyskinetic3-5 moderate 5 - Aneurysmal 6-14 large 15-16 diffuse Left Ventricle The left ventricle is normal in size. There is normal left ventricular wall thickness. Ejection Fraction = 60-65%. The Echocardiology Report left ventricular wall motion is normal. Grade I diastolic dysfunction, (abnormal relaxation pattern). Left Atrium The left atrium is mildly dilated. Right Atrium Right atrial size is normal. Right Ventricle The right ventricular systolic function is normal. Aortic Valve The aortic valve is trileaflet. Mitral Valve Mitral valve structure is normal. Tricuspid Valve Structurally normal tricuspid valve. There is trace tricuspid regurgitation. Right ventricular systolic pressure is 33 mmHg. Pulmonic Valve The pulmonic valve is normal. Arteries The aortic root is normal in size. Venous The inferior vena cava is normal in size, and collapses normally with respiration. Effusion There is no pericardial effusion. MMode/2D Measurements & Calculations RVDd: 3.0 cm LVIDd: 5.4 cm FS: 38.8 % Ao root diam: 3.3 cm IVSd: 0.97 cm LVIDs: 3.3 cm EDV(Teich): 143.1 ml Ao root area: 8.5 cm2 LVPWd: 0.88 cm ESV(Teich): 45.0 ml LA dimension: 4.3 cm EF(Teich): 68.6 % LVOT diam: 2.2 cm LVLd ap4: 9.5 cm EDV(MOD-sp2): 172.0 ml SV(MOD-sp4): 87.7 ml LVOT area: 3.8 cm2 EDV(MOD-sp4): 140.0 ml ESV(MOD-sp2): 47.7 ml LVLs ap4: 8.0 cm EF(MOD-sp2): 72.3 % ESV(MOD-sp4): 52.3 ml EF(MOD-sp4): 62.6 % TAPSE: 2.9 cm IVC Diam: 2.1 cm RVIDd/LVIDd: 0.54 EF (MOD-bp): 66.6 % LA Vol Index: 22.6 ml/m2 Doppler Measurements & Calculations MV E max kendal: 69.0 cm/sec MV dec time: 0.36 sec Ao V2 max: 179.2 cm/sec LV V1 max P.4 mmHg Echocardiology Report MV A max kendal: 49.7 cm/sec Ao max P.8 mmHg LV V1 max: 176.3 cm/sec MV E/A: 1.4 Lat Peak E' Kendal: 18.8 cm/sec VANESSA(V,D): 3.7 cm2 E/E' Lat: 3.7 Med Peak E' Kendal: 10.9 cm/sec E/E' Med: 6.3 TR max kendal: 275.5 cm/sec RAP systole: 3.0 mmHg AV VR: 0.98 TR max P.4 mmHg RVSP(TR): 33.4 mmHg Measurements from [employer]LAB ED Mass (HM): 156.0 grams LAEF (HM): 71.0 % BSA (HM): 2.0 m2 CI (HM): 3.0 l/min/m2 DEBBI (HM): 36.0 ml/m2 LAVmax (HM): 74.0 ml LAVmin (HM): 21.0 ml Pat Height (HM): 180.0 cm Pat Weight (HM): 83.0 kg FINAL REPORT Dictated: 11/14/2023 10:07 am Can ROSA MD Signed (Electronic Signature): 11/14/2023 1:20 pm Signed by: Can ROSA MD Transcribed by: LATA Technologist: [facility]12-21-2023 Note Chief Complaint abdominal pain, n/v, diarrhea Reason for Consultation Bradycardia History of Present Illness Patient is a very pleasant 38-year-old gentleman, longtime smoker since 6 grade approximately 1 pack/day for 30 years, no known coronary disease, myocardial infarction, previous TIA or CVA. Patient apparently has hypercholesterolemia but is on no medications. Patient apparently has chronic colitis,and recently had episode of multiple episodes of nausea and vomiting since Saturday, too many to count, as well as diarrhea but no chest pain or anginal symptoms. He complained of some mild shortnessof breath. Patient was found to be hypokalemic with a potassium of 2.6. EKG on admission showed sinus bradycardia, no acute changes. First troponin is negative. TSH is pending. On further history the patient denies any recent exertional chest pain, angina, flulike illness. Heis a reformed alcoholic and has not drank in 4 months time. He denies any illicit drug use. Review of Systems Constitutional: no fever, no sweats, no weakness Skin: no rash, no lesions, nobruising/petechiae ENMT: no sore throat, no congestion, no hoarseness Respiratory: no shortness of breath, no cough, no orthopnea, no wheezing Cardiovascular: no chest pain, no palpitations, no edema Gastrointestinal: no nausea, no vomiting, no diarrhea, no GI bleeding Genitourinary: no anuria/oliguria no hematuria Musculoskeletal: no back pain, no trauma Neurologic: no headache, no dizziness, no numbness, no weakness Psychiatric: no sleeping problems, no irritability, no anxiety/depression. Heme/Lymph: no bleeding tendency, no bruising tendency Allergy/Immunologic: no recurrent infections, no impaired immunity Additional ROS info: Except as noted in the above Review of Systems and in the History of Present Illness all other systems have been reviewed and are negative or noncontributory. Physical Exam Vitals & Measurements T: 37.0 ?C(Oral) TMIN: 36.5 ?C(Oral) TMAX: 37.3 ?C(Oral) HR: 48(Monitored) RR: 19 BP: 130/68 SpO2: 98% HT: 180.34 cm WT: 82 kg General: alert, no acute distress Skin: warm, dry intact Head: atraumatic, normocephalic Neck: Trachea midline, no JVD, no bruit Eye: normal conjunctiva, sclera clear ENMT: oral mucosa moist Cardiovascular: regular rate and rhythm, nomurmur normal peripheral perfusion Respiratory: Lungs CTA, respirations non labored Chest wall: no deformity. Gastrointestinal: soft, non distended, no tenderness, no guarding. Back: No tenderness, Normal ROM, Normal alignment. Extremities: no edema, no deformity, no trauma Neurological: oriented x 4, LOC appropriate for agesensation equal & normal bilaterally, speechnormal Psychiatric: cooperative, affect appropriate for age, normal judgement, normal psychiatric thoughts. Assessment/Plan Bradycardia: Patient presents with asymptomatic bradycardia in the face of nausea, vomiting, dehydration and hypokalemia. Recommend replacing his potassium to keep it above 4.0. His magnesium is adequately controlled. Recommend he undergo a 2D echo with Doppler to evaluate his LV function, pulmonary pressures and valvular status. Would recommend a series of troponins to rule out myocardial infarction or ischemia. At some point once his GI condition has improved he may be evaluated with a walking stress/MPI or stress echocardiogram. I strongly encouraged the patient to discontinue all tobacco products. This may assist with his colitis as well. Recommend checking his TSH and T4 to determine if he has any hypothyroidism. Would recommend obtaining a vascular profile. Would not recommend baby aspirin at this time unless his troponins become positive. Thank you very much for the opportunity to participate in the cardiac care of your patient. Consultation time took place between 730 and 8 AM. Patient may follow-up with Dr. Rosa going forward. 1. Hypokalemia (E87.6: Hypokalemia) 2. Elevated WBC count (D72.829: Elevated white blood cell count, unspecified) 3. Gastroenteritis (K52.9: Noninfective gastroenteritis and colitis, unspecified) 4. Nausea and vomiting (R11.2: Nausea with vomiting, unspecified) 5. Acid reflux (K21.9: Gastro-esophageal reflux disease without esophagitis) 6. Smoker (F17.200: Nicotine dependence, unspecified, uncomplicated) 7. History of alcohol abuse (F10.11: Alcohol abuse, in remission) 8. On deep vein thrombosis (DVT) prophylaxis (Z79.899: Other assisted (current) drug therapy) Orders: Echo Transthoracic Complete T4 & TSH Troponin 0 Hr. Troponin 3 Hr. Troponin 6 Hr. Problem List/Past Medical History Ongoing Acid reflux Bleeding per rectum BMI 29.0-29.9,adult Clostridium difficile diarrhea Colon polyps Encounter for vasectomy Gastric erosions Globus sensation Hemorrhoids History of colon polyps Nausea and vomiting Right inguinal hernia Smoker Historical Abdominal pain Colitis, Clostridium difficile Diarrhea Epigastric pain Stephanie (more content not included)...[facility]: Result Comment: Electronically Signed By: SHELLEY ROMANO, Can [email or web address]\Date and Time Signed: 11/14/23 08:40 [id number] Evaluation + Plan note Future Scheduled Tests Radiology* XR Esophagus 08/27/23 [facility]10-03-2023 Hospital Discharge instructions Patient Education 08/27/2023 08:36:27 High-Fiber Eating Plan High-Fiber Eating Plan Fiber, also called dietary fiber, is a type of carbohydrate. It is found foods such as fruits, vegetables, whole grains, and beans. A high-fiber diet can have many health benefits. Your health care provider may recommend a high-fiber diet to help: Prevent constipation. Fiber can make your bowel movements more regular. Lower your cholesterol. Relieve the following conditions: ?Inflammation of veins in the anus (hemorrhoids). ?Inflammation of specific areas of the digestive tract (uncomplicated diverticulosis). ?A problem of the large intestine, also called the colon, that sometimes causes pain and diarrhea (irritable bowel syndrome, or IBS). Prevent overeating as part of a weight-loss plan. Prevent heart disease, type 2 diabetes, and certain cancers. What are tips for following this plan? Reading food labels Check the nutrition facts label on food products for the amount of dietary fiber. Choose foods thathave 5 grams of fiber or more per serving. The goals for recommended daily fiber intake include: ?Men (age 50 or younger): 34 38 g. ?Men (over age 50): 28 34 g. ?Women (age 50 or younger): 25 28 g. ?Women (over age 50): 22 25 g. Your daily fiber goal is g. Shopping Choose whole fruits and vegetables instead of processed forms, such as apple juice or applesauce. Choose a wide variety of high-fiber foods such as avocados, lentils, oats, and kidney beans. Read the nutrition facts label of the foods you choose. Be aware of foods with added fiber. These foods often have high sugar and sodium amounts per serving. Cooking Use whole-grain flour for baking and cooking. Cook with brown rice instead of white rice. Meal planning Start the day with a breakfast that is high in fiber, such as a cereal that contains 5 g of fiber or more per serving. Eat breads and cereals that are made with whole-grain flour instead of refined flour or white flour. Eat brown rice, bulgur wheat, or millet instead of white rice. Use beans in place of meat in soups, salads, and pasta dishes. Be sure that half of the grains you eat each day are whole grains. General information You can get the recommended daily intake of dietary fiber by: ?Eating a variety of fruits, vegetables, grains, nuts, and beans. ?Taking a fiber supplement if you are not able to take in enough fiber in your diet. It is better to get fiber through food than from a supplement. Gradually increase how much fiber you consume. If you increase your intake of dietary fiber too quickly, you may have bloating, cramping, or gas. Drink plenty of water to help you digest fiber. Choose high-fiber snacks, such as berries, raw vegetables, nuts, and popcorn. What foods should I eat? Fruits Berries. Pears. Apples. Oranges. Avocado. Prunes and raisins. Dried figs. Vegetables Sweet potatoes. Spinach. Kale. Artichokes. Cabbage. Broccoli. Cauliflower. Green peas. Carrots. Squash. Grains Whole-grain breads. Multigrain cereal. Oats and oatmeal. Brown rice. Barley. Bulgur wheat. Millet. Quinoa. Bran muffins. Popcorn. Mabie wafer crackers. Meats and other proteins [place] beans, kidney beans, and corado beans. Soybeans. Split peas. Lentils. Nuts and seeds. Dairy Fiber-fortified yogurt. Beverages Fiber-fortified soy milk. Fiber-fortified orange juice. Other foods Fiber bars. The items listed above may not be a complete list of recommended foods and beverages. Contact a dietitian for more information. What foods should I avoid? Fruits Fruit juice. Cooked, strained fruit. Vegetables Fried potatoes. Canned vegetables. Well-cooked vegetables. Grains White bread. Pasta made with refined flour. White rice. Meats and other proteins Fatty cuts of meat. Fried chicken or fried fish. Dairy Milk. Yogurt. Cream cheese. Sour cream. Fats and oils [place]. Beverages Soft drinks. Other foods Cakes and pastries. The items listed above may not be a complete list of foods and beverages to avoid. Talk with your dietitian about what choices are best for you. Summary Fiber is a type of carbohydrate. It is found in foods such as fruits, vegetables, whole grains, andbeans. A high-fiber diet has many benefits. It can help to prevent constipation, lower blood cholesterol, aid weight loss, and reduce your risk of heart disease, diabetes, and certain cancers. Increase your intake of fiber gradually. Increasing fiber too quickly may cause cramping, bloating,and gas. Drink plenty of water while you increase the amount of fiber you consume. The best sources of fiber include whole fruits and vegetables, whole grains, nuts, seeds, and beans. This information is not intended to replace advice given to you by your health care provider. Make sure you discuss any questions you have with your health care provider. Document Revised: 03/16/2021 Document Reviewed: 03/16/2021 [employer] Patient Education 2022 [employer]. Follow Up Care 07/25/2023 10:07:58 With:Cyndee Snell CNP Address: When:3 months [facility] 08-31-2023 Hospital Discharge instructions Patient Education 07/25/2023 10:03:54 Food Choices for Gastroesophageal Reflux Disease, Adult Food Choices for Gastroesophageal Reflux Disease, Adult When you have gastroesophageal reflux disease (GERD), the foods you eat and your eating habits are very important. Choosing the right foods can help ease the discomfort of GERD. Consider working witha dietitian to help you make healthy food choices. What are tips for following this plan? Reading food labels Look for foods that are low in saturated fat. Foods that have less than 5% of daily value (DV) of fat and 0 g of trans fats may help with your symptoms. Cooking Cook foods using methods other than frying. This may include baking, steaming, grilling, or broiling. These are all methods that do not need a lot of fat for cooking. To add flavor, try to use herbs that are low in spice and acidity. Meal planning Choose healthy foods that are low in fat, such as fruits, vegetables, whole grains, low-fat dairy products, lean meats, fish, and poultry. Eat frequent, small meals instead of three large meals each day. Eat your meals slowly, in a relaxed setting. Avoid bending over or lying down until 2 3 hours after eating. Limit high-fat foods such as fatty meats or fried foods. Limit your intake of fatty foods, such as oils, butter, and shortening. Avoid the following as told by your health care provider: ?Foods that cause symptoms. These may be different for different people. Keep a food diary to keep track of foods that cause symptoms. ?Alcohol. ?Drinking large amounts of liquid with meals. ?Eating meals during the 2 3 hours before bed. Lifestyle Maintain a healthy weight. Ask your health care provider what weight is healthy for you. If you need to lose weight, work with your health care provider to do so safely. Exercise for at least 30 minutes on 5 or more days each week, or as told by your health care provider. Avoid wearing clothes that fit tightly around your waist and chest. Do not use any products that contain nicotine or tobacco. These products include cigarettes, chewing tobacco, and vaping devices, such as e-cigarettes. If you need help quitting, ask your health careprovider. Sleep with the head of your bed raised. Use a wedge under the mattress or blocks under the bed frame to raise the head of the bed. Chew sugar-free gum after mealtimes. What foods should I eat? Eat a healthy, well-balanced diet of fruits, vegetables, whole grains, low-fat dairy products, leanmeats, fish, and poultry. Each person is different. Foods that may trigger symptoms in one person may not trigger any symptoms in another person. Work with your health care provider to identify foodsthat are safe for you. The items listed above may not be a complete list of recommended foods and beverages. Contact a dietitian for more information. What foods should I avoid? Limiting some of these foods may help manage the symptoms of GERD. Everyone is different. Consult adietitian or your health care provider to help you identify the exact foods to avoid, if any. Fruits Any fruits prepared with added fat. Any fruits that cause symptoms. For some people this may include citrus fruits, such as oranges, grapefruit, pineapple, and melyssa. Vegetables Deep-fried vegetables. Serbian fries. Any vegetables prepared with added fat. Any vegetables that cause symptoms. For some people, this may include tomatoes and tomato products, chili peppers, onions and garlic, and horseradish. Grains Pastries or quick breads with added fat. Meats and other proteins High-fat meats, such as fatty beef or pork, hot dogs, ribs, ham, sausage, salami, and barrientos. Fried meat or protein, including fried fish and fried chicken. Nuts and nut butters, in large amounts. Dairy Whole milk and chocolate milk. Sour cream. Cream. Ice cream. Cream cheese. Milkshakes. Fats and oils Butter. Margarine. Shortening. Ghee. Beverages Coffee and tea, with or without caffeine. Carbonated beverages. Sodas. Energy drinks. Fruit juice made with acidic fruits, such as orange or grapefruit. Tomato juice. Alcoholic drinks. Sweets and desserts Chocolate and cocoa. Donuts. Seasonings and condiments Pepper. Peppermint and spearmint. Added salt. Any condiments, herbs, or seasonings that cause symptoms. For some people, this may include spivey, hot sauce, or vinegar-based salad dressings. The items listed above may not be a complete list of foods and beverages to avoid. Contact a dietitian for more information. Questions to ask your health care provider Diet and lifestyle changes are usually the first steps that are taken to manage symptoms of GERD. If diet and lifestyle changes do not improve your symptoms, talk with your health care provider abouttaking medicines. Where to find more information [employer]intestinal [employer]: aboutgerd.org Summary When you have gastroesophageal reflux disease (GERD), food and lifestyle choices may be very helpful in easing the discomfort of GERD. Eat frequent, small meals instead of three large meals each day. Eat your meals slowly, in a relaxed setting. Avoid bending over or lying down until 2 3 hours after eating. Limit high-fat foods such as fatty meats or fried foods. This information is not intended to replace advice given to you by your health care provider. Make sure you discuss any questions you have with your health care provider. Document Revised: 05/22/2021 Document Reviewed: 05/22/2021 [employer] Patient Education 2022 [employer]. Follow Up Care 07/19/2023 12:00:59 With:Cyndee Snell CNP Address: When:1 month [facility] 08-25-2023 Hospital Discharge instructions Patient Education 07/19/2023 12:04:15 Cyclic Vomiting Syndrome, Adult Cyclic Vomiting Syndrome, Adult Cyclic vomiting syndrome (CVS) is a condition that causes episodes of severe nausea and vomiting. It can last for hours or even days. Attacks may occur several times a month or several times a year. Between episodes of CVS, you may be otherwise healthy. What are the causes? The cause of this condition is not known. Although many of the episodes can happen for no obvious reason, you may have specific CVS triggers. Episodes may be triggered by: An infection, especially colds and the flu. Emotional stress, including excitement or anxiety about finances, relationships, or moving. Certain foods or beverages, such as chocolate, cheese, alcohol, and food additives. Food allergies. Motion sickness. Eating a large meal before bed. Being very tired. Being overheated. Menstruation. Long-term cannabis use. What increases the risk? You are more likely to develop this condition if: You get migraine headaches. You have a family history of CVS or migraine headaches. What are the signs or symptoms? Symptoms tend to happen at the same time of day, and each episode tends to last about the same amount of time. Symptoms commonly start at night or when you wake up. Many people have warning signs (prodrome) before an episode, which may include slight nausea, sweating, and pale skin (pallor). The most common symptoms of a CVS attack include: Severe vomiting. Vomiting may happen every 5 15 minutes. Severe nausea. Gagging (retching). Other symptoms may include: Headache. Dizziness. Sensitivity to light or sound. Abdominal pain. This can be severe. Loose stools or diarrhea. Weakness or exhaustion. Dehydration. This can cause: ?Thirst. ?Dry mouth. ?Decreased urination. ?Fatigue. How is this diagnosed? This condition may be diagnosed based on your symptoms, medical history, and family history of CVS or migraine. Your health care provider will ask whether you have had: Episodes of severe nausea and vomiting that have happened a total of 5 or more times, or 3 or more times in the past 6 months. Episodes that last for 1 hour or more, and occur 1 week apart or further apart. Episodes that are similar each time. Normal health between episodes. Your health care provider will also do a physical exam. To rule out other conditions, you may have tests, such as: Blood tests. Urine tests. Imaging tests. How is this treated? There is no cure for this condition, but treatment can help manage or prevent CVS episodes. Work with your health care provider to find the best treatment for you. Treatment may include: Avoiding stress and CVS triggers. Eating smaller, more frequent meals. Taking medicines, such as: ?Anti-nausea medicines. ?Antacids. ?Antidepressants. ?Antihistamines. ?Medicines for migraines. ?Vjto-env-yprkota pain medicine. ?Over-the counter diet supplements. Severe nausea and vomiting may require you to stay at the hospital. You may need IV fluids to prevent or treat dehydration. Follow these instructions at home: During an episode Take bkol-rkq-rgrjtio and prescription medicines only as told by your health care provider. Stay in bed and rest in a dark, quiet room. After an episode Drink an oral rehydration solution (ORS), if directed by your health care provider. This is a drinkthat helps you replace fluids and the salts and minerals in your blood (electrolytes). It can be found at pharmacies and retail stores. Drink small amounts of clear fluids slowly and gradually add more. ?Drink clear fluids such as water or fruit juice that has water added (is diluted). You may also eat low-calorie popsicles. ?Avoid drinking fluids that contain a lot of sugar or caffeine, such as sports drinks and soda. Eat soft foods in small amounts every 3 4 hours. Eat your regular diet, but avoid spicy or fatty foods, such as singaporean fries and pizza. General instructions Monitor your condition for any changes. Keep track of your attacks and symptoms, and pay attention to any triggers. Avoid those triggers when you can. If you use cannabis, stop using it right away. Ending cannabis use can reduce or even stop your cyclic vomiting syndrome. Keep all follow-up visits. This is important. Where to find more information Cyclic Vomiting Syndrome Association: cvsaonline.org Contact a health care provider if: Your condition gets worse. You cannot drink fluids without vomiting. You have pain and trouble swallowing after an episode. Get help right away if: You have blood in your vomit. Your vomit looks like coffee grounds. You have stools that are bloody or black, or stools that look like tar. You have signs of dehydration, such as: ?Sunken eyes. ?Not making tears while crying. ?Very dry mouth or cracked lips. ?Decreased urine production. ?Dark urine. Urine may be the color of tea. ?Weakness. ?Sleepiness. These symptoms may be an emergency. Get help right away. Call 911. Do not wait to see if the symptoms will go away. Do not drive yourself to the hospital. Summary Cyclic vomiting syndrome (CVS) causes episodes of severe nausea and vomiting that can last for hours or even days. Treatment can help you manage or prevent CVS episodes. Work with your health care provider to find the best treatment for you. Vomiting and diarrhea can make you feel weak and can lead to dehydration. If you notice signs of dehydration, call your health care provider right away. Keep all follow-up visits This is important. This information is not intended to replace advice given to you by your health care provider. Make sure you discuss any questions you have with your health care provider. Document Revised: 06/20/2022 Document Reviewed: 06/20/2022 [employer] Patient Education 2022 [employer]. 07/19/2023 12:02:57 Hypokalemia Hypokalemia Hypokalemia means that the amount of potassium in the blood is lower than normal. Potassium is a mineral (electrolyte) that helps regulate the amount of fluid in the body. It also stimulates muscle tightening (contraction) and helps nerves work properly. Normally, most of the body's potassium is inside cells, and only a very small amount is in the blood. Because the amount in the blood is so small, minor changes to potassium levels in the blood can be life-threatening. What are the causes? This condition may be caused by: Antibiotic medicine. Diarrhea or vomiting. Taking too much of a medicine that helps you have a bowel movement (laxative)can cause diarrhea and lead to hypokalemia. Chronic kidney disease (CKD). Medicines that help the body get rid of excess fluid (diuretics). Eating disorders, such as anorexia or bulimia. Low magnesium levels in the body. Sweating a lot. What are the signs or symptoms? Symptoms of this condition include: Weakness. Constipation. Fatigue. Muscle cramps. Mental confusion. Skipped heartbeats or irregular heartbeat (palpitations). Tingling or numbness. How is this diagnosed? This condition is diagnosed with a blood test. How is this treated? This condition may be treated by: Taking potassium supplements. Adjusting the medicines that you take. Eating more foods that contain a lot of potassium. If your potassium level is very low, you may need to get potassium through an IV and be monitored in the hospital. Follow these instructions at home: Eating and drinking Eat a healthy diet. A healthy diet includes fresh fruits and vegetables, whole grains, healthy fats, and lean proteins. If told, eat more foods that contain a lot of potassium. These include: ?Nuts, such as peanuts and pistachios. ?Seeds, such as sunflower seeds and pumpkin seeds. ?Peas, lentils, and blackwood beans. ?Whole grain and bran cereals and breads. ?Fresh fruits and vegetables, such as apricots, avocado, bananas, cantaloupe, kiwi, oranges, tomatoes, asparagus, and potatoes. ?Juices, such as orange, tomato, and prune. ?Lean meats, including fish. ?Milk and milk products, such as yogurt. General instructions Take peke-kdr-nxbbtck and prescription medicines only as told by your health care provider. This includes vitamins, natural food products, and supplements. Keep all follow-up visits. This is important. Contact a health care provider if: You have weakness that gets worse. You feel your heart pounding or racing. You vomit. You have diarrhea. You have diabetes and you have trouble keeping your blood sugar in your target range. Get help right away if: You have chest pain. You have shortness of breath. You have vomiting or diarrhea that lasts for more than 2 days. You faint. These symptoms may be an emergency. Get help right away. Call 911. Do not wait to see if the symptoms will go away. Do not drive yourself to the hospital. Summary Hypokalemia means that the amount of potassium in the blood is lower than normal. This condition is diagnosed with a blood test. Hypokalemia may be treated by taking potassium supplements, adjusting the medicines that you take, or eating more foods that are high in potassium. If your potassium level is very low, you may need to get potassium through an IV and be monitored in the hospital. This information is not intended to replace advice given to you by your health care provider. Make sure you discuss any questions you have with your health care provider. Document Revised: 07/26/2022 Document Reviewed: 07/26/2022 [employer] Patient Education 2022 [employer]. Follow Up Care 07/18/2023 12:12:49 With:Mal ASENCIO Address: [address] [place] [address] Business (1) When:07/25/2023 09:40:00 Comments:Appt will be with nurse practiotioner at the [place] office With:Amber English Address: [address] [place] [address]- Business (1) When:2 to 4 days Comments:Office will call patient with F/U if needed. Patient was just seen by provider on 07/17 for same symptoms related to admission. [facility]08-25-2023 NoteAdmission and Discharge Information Admitting Physician - Peña Gr DO Admitting Diagnoses: Discharge Order Date Discharge Patient - Ordered -- 07/19/23 12:03:00 EDT, to home w/ f/u appts as written. Discharge Diagnoses 1. Hypokalemia, 07/18/2023 2. Hyponatremia, 07/18/2023 3. Nausea vomiting and diarrhea, 07/18/2023 4. Odynophagia, 07/18/2023 5. Bradycardia, 07/19/2023 6. Erythrocytosis, 07/18/2023 7. Smoker, 07/18/2023 8. Acid reflux, 07/18/2023 9. On deep vein thrombosis (DVT) prophylaxis, 07/18/2023 10. Marijuana use, 07/19/2023 11. Barbiturate use, 07/19/2023 Please refer to my progress note for in-depth information regarding each individual diagnosis Procedure History Colonoscopy (05/06/2023), Esophagogastroduodenoscopy (05/06/2023), Vasectomy (01/11/2022), Laparoscopic repair of incisional hernia (03/13/2021), History of lumbar fusion (02/24/2020), Colonoscopy (06/01/2019), Esophagogastroduodenoscopy (06/01/2019), Colonoscopy. Hospital Course 38-year-old male with PMH of C. difficile colitis, smoker, GERD. -Patient presented to the ED secondary to complaints of hypokalemia, hyponatremia in the setting ofN/V/D. -Patient presented w/ N/V/D likely secondary to gastroenteritis +/- cyclic vomiting (+ marijuana use on UDS) as his symptoms completely resolved within 72 hours. Electrolyte imbalance secondary to GIloss was corrected. Patient has had low potassium levels over time in review of labs, will provide potassium 10 mEq daily with plan to repeat BMP in 3 days to monitor levels. Results to PCP. -Urine drug screen was positive for barbiturates and cannabis, patient provided education on possibility of cyclic vomiting in the setting of above. Patient denies drug use. -Odynophagia improved with GI cocktail, PPI twice daily, he refused BMX solution and therefore was not provided prescription for BMX at discharge. -Patient has had an no further N/V/D since time of arrival, states that he is feeling very well. Tolerated a diet without complaint. -Patient states that all admitting symptoms have significantly improved and/or resolved. Patient iseating and drinking without complaints, denies being SOB, chest pain, pressure, palpitations or difficulty with voiding. Patient is eager to be discharged to home. --Other chronic medical conditions as outlined in note. Refer to d/c plan below: -Case reviewed and discussed with Dr. Gr who is in agreement with current d/c plan. Case will be reviewed and discussed with PCP or personnel associate MD once the hospital formation fracturing operator is able to reach him/her.I spent a lengthy amount of time with the patient and/or family reviewing discharge instructions, medications, medication use. Patient to follow-up with PCP and specialty providers as scheduled on discharge. Patient being discharged in medically/hemodynamically stable cond. with instructions to return to the hospital if symptoms worsen or recur. This report was transcribed using voice recognition software. Every effort was made to ensure accuracy, however, inadvertently computerized shoemaking cutter mistakes may be present. Significant Findings No qualifying data available. Physical Exam Vitals & Measurements T: 36.9 ?C(Axillary) TMIN: 36.6 ?C(Axillary) TMAX: 36.9 ?C(Oral) HR: 54(Monitored) RR: 20 BP: 125/81 SpO2: 99% HT: 180 cm WT: 79.3 kg General: Calm, able to communicate needs, Head: Normocephalic/atraumatic Eyes: Pupils equal, round, Conjunctivae and sclerae normal, HEENT: Mucous membrane moist. Tongue normal, post. oral cavity is erythemic Neck: Trachea midline, neck supple, Chest: No chest wall deformity, no chest wall tenderness Lungs: CTA del real. Cardio: Normal rate, currently in RSR, no edema. Pulses: Normal capillary refill Abdomen: Soft, non-distended, non-tender, normal BS Musculoskeletal: No deformity or scoliosis noted. Integumentary: Warm, dry, Extremity: No clubbing, Neurologic: Alert, oriented x4, follows commands, Mental status: Pleasant & cooperative, approp. affect, Laboratory Results BMP (07/19/2023) Glucose Lvl - 112 mg/dL BUN - 21 mg/dL Creatinine - 1.0 mg/dL BUN/Creat Ratio - 21 Sodium Lvl - 133 mmol/L Potassium Lvl - 3.7 mmol/L Chloride - 94 mmol/L CO2 - 32 mmol/L AGAP - 11 mEq/L Calcium Lvl - 8.7 mg/dL eGFR (07/19/2023) eGFR - 98 mL/min/1.73 m2 Folate Level (07/18/2023) Folate Lvl - 8.8 ng/mL Hemoglobin and Hematocrit (07/19/2023) Hgb - 16.6 gm/dL Hct - 47.7 % Magnesium Level (07/18/2023) Magnesium - 2.1 mg/dL Potassium Level (07/18/2023) Potassium Lvl - 3.1 mmol/L TSH With T4fr Reflex (07/18/2023) TSH - 1.39 mcIU/mL UA With Cult Reflex (07/18/2023) UA Spec Desc - Clean Catch UA Color - Yellow2 UA Clarity - Clear2 UA Spec Grav - <=1.005 UA pH - 7.5 UA Protein - NEGATIVE1 UA Glucose - NEGATIVE1 UA Ketones - NEGATIVE1 UA Bili - NEGATIVE1 UA Blood - NEGATIVE1 UA Nitrite - NEGATIVE1 UA Urobilinogen - 1.0 (more content not included)...[facility] Comment on above:Result Comment: Electronically Signed By: Gely MCALLISTER\.br\Date and Time Signed: 07/19/23 13:25 EDT\.br\Electronically Co-Signed By: Peña Gr DO.br\Date and Time Co-Signed: 07/19/23 14:00 EDT 07-19-2023 Evaluation + Plan noteExtracted from: Title:Discharge Note Author:Yaritza MCALLISTER nee Date:07/19/23 Hemodynamically stable condi tion Discharged to - Home with family care Discharge Status: Improved Discharge Instructions Given: To patient Discharge disposition: Home Prescriptions reviewed with Patient 39 minutes spent in discharge time with patient, collaborating MD, nursing staff, CRM, Discharge Diet(s): Regular (07/19/23 12:01:00) Prescriptions Pantoprazole [address] Tab, 40 mg= 1 tab(s), Oral, BID potassium chloride 10 mEq Cap-ER, 10 mEq= 1 cap(s), Oral, Daily Home acetaminophen 325 mg Tab, 650 mg= 2 tab(s), Oral, q6hr, PRN famotidine 20 mg Tab, 20 mg= 1 tab(s), Oral, Bedtime With When Contact Information Mal ASENCIO 07/25/2023 09:40 AM EDT [address] [place] [address] Business (1) Additional Instructions: Appt will be with nurse practiotioner at the [place] office Amber Egnlish Within 2 to 4 days [address] [place] [address]- Business (1) Additional Instructions: Office will call patient with F/U if needed. Patient was just seen by provider on 07/17 for same symptoms related to admission. Cyclic Vomiting Syndrome, Adult Hypokalemia Extracted from: Title:Admission H & P Author:Caroline MCALLISTER enee Date:07/18/23 1. Hypokalemia (E87.6: Hypok alemia) 2/2 GI loss, poor po intake -IV/PO KCL replacement -Mag level - wnl -Trend labs 2. Hyponatremia (E87.1: Hypo-osmolality and hyponatremia) Likely 2/2 dehydration, Gi loss, -Asymptomatic -Baseline Na level: 135 -IVF -Trend BMP 3. Nausea vomiting and diarrhea (R11.2: Nausea with vomiting, unspecified) Resolved at present but pt. has had very minimal po intake in 3 days -Denies abd. complaints -Clear liquids - adv as jaron. -Cdiff, enteric panel - pending 4. Odynophagia (R13.10: Dysphagia, unspecified) Likely 2/2 projectile vomiting x 3 days -GI cocktail x 1 -BMX idris. -PPI BID 5. Erythrocytosis (D75.1: Secondary polycythemia) Likely 2/2 hypovol. 2/2 GI loss, poor po intake -IVF -Trend labs 6. Smoker (F17.200: Nicotine dependence, unspecified, uncomplicated) Educated on the need for complete smoking cessation -Nicotine patch if requested 7. Acid reflux (K21.9: Gastro-esophageal reflux disease without esophagitis) -PPI 8. On deep vein thrombosis (DVT) prophylaxis (Z79.899: Other superintendent terminal (current) drug therapy) -Heparin sq with early ambulation Orders: acetaminophen, 650 mg = 2 tab(s), Tab, Oral, q6hr PRN Pain, Routine, Start date 07/18/23 15:51:00 EDT, 07/18/23 15:51:00 EDT Al hydroxide/Mg hydroxide/simethicone, 30 mL, Susp-Oral, Oral, Once, Stop date 07/18/23 16:00:00 EDT, Routine, Start date 07/18/23 16:00:00 EDT atropine/hyoscyamine/PB/scopolamine, 10 mL, Elixir, Oral, Once, Stop date 07/18/23 16:00:00 EDT, Routine, Start date 07/18/23 16:00:00 EDT BMX Solution, 5 mL, Liquid, Oral-Swish&Swallow, TIDAC, Routine, Start date 07/18/23 16:30:00 EDT heparin, 5,000 unit(s) = 1 mL, Injection, SubCutaneous, BID for 30 day(s), Stop date 08/17/23 20:59:00 EDT, Routine, Start date 07/18/23 21:00:00 EDT, 07/18/23 15:51:00 EDT lidocaine topical, 200 mg, 10 mL, Soln-Oral, Oral, Once, Stop date 07/18/23 16:00:00 EDT, Routine, Start date 07/18/23 16:00:00 EDT ondansetron, 4 mg = 2 mL, Injection, IV Push, q6hr PRN Nausea, Routine, Start date 07/18/23 15:51:00 EDT, 07/18/23 15:51:00 EDT pantoprazole, 40 mg = 1 tab(s), Tab-DR, Oral, BID, NOW, Start date 07/18/23 15:58:00 EDT, 07/18/23 15:58:00 EDT potassium chloride, 40 mEq = 2 tab(s), Tab-ER, Oral, Once, Stop date 07/18/23 16:00:00 EDT, Routine, Start date 07/18/23 16:00:00 EDT Sodium Chloride 0.9% intravenous solution 1,000 mL, 1,000 mL, IV, 75 mL/hr, for 1 dose(s), Stop date 07/19/23 5:08:00 EDT, Routine, Start date 07/18/23 15:51:00 EDT, 13.3 hour(s), Total volume (mL): 1,000, 78.8 kg, 1.98, m2 Add on Test Ambulate with Assistance Basic Metabolic Panel Below the Knee Intermittent Pneumatic Compression Device Clear Liquid Diet Clostridium Difficile PCR Communication Order Physician to Nursing Drug Screen Urine Elevate Head of Bed Enteric Panel by PCR Intake and Output Notify Provider Vital Signs Notify Provider Vital Signs Precautions Pulse Oximetry Resuscitation Status - Full TSH With T4fr Reflex UA With Cult Reflex Vital Signs Weight -Plan discussed w/ patient, nursing staff and CRM. -Disposition: Patient will likely be less than 2 midnight stays for treatment of above. This report was transcribed using voice recognition software. Every effort was made to ensure accuracy, however, inadvertently computerized shoemaking cutter mistakes may be present. Extracted from: Title:ED Note Author:Sakina MAYORGA, Nicholas Locke e:07/18/23 Hypokalemia (E87.6: Hypokale fatuma) Orders: potassium chloride, 40 mEq = 2 tab(s), Tab-ER, Oral, Once, Stop date 07/18/23 14:06:00 EDT, STAT, Start date 07/18/23 14:06:00 EDT, 07/18/23 14:06:00 EDT Sodium Chloride 0.9% with KCl 40 mEq/l 1,000 mL, 1,000 mL, IV, 250 mL/hr, for 1 dose(s), Stop date 07/18/23 18:35:00 EDT, Start date 07/18/23 14:36:00 EDT, 4 hour(s), Total volume (mL): 1,000, 78.8 kg, 1.98, m2 Basic Metabolic Panel ECG 12 Lead Adult eGFR Extra Lav Tube Magnesium Level Future Appointments Appointment Date:07/25/2023 09:40:00 AM Scheduled Provider:Cyndee Snell CNP Location:[facility] Appointment Type:[facility] Follow Up Future Scheduled Tests Laboratory* Basic Metabolic Panel 07/22/23 Radiology* MRI Cholangiogram Pancreatography (mrcp) 07/11/23 [facility]08-25-2023 NoteCRM entered the room to discuss dc planning. PCP, DME and insurance discussed. Patient is alert andinvolved in plan of care. Contact information given and whiteboard updated. Pt's will transport. Ant dc today. CRM [facility] Comment: Electronically Signed By: Akiko Celestin\Date and Time Signed: 07/19/23 13:27 [id number] NoteChief Complaint Patient presents with low K+ of 2.8 from outpt labs. pt being treated of colitis History of Present Illness 38-year-old male with PMH of C. difficile colitis 01/2023, smoker, GERD. -Patient presented to the ED from GI office with complaints of hypokalemia. -Patient was treated for C. difficile colitis 01/2023, states that he had been feeling well post Vanco treatment however on 07/14 he developed nausea w/ non bloody V/D which did not resolve until 07/17but he has had very minimal intake since that time due to fear of resuming abdominal issues. He states that he does not feel well and elicits generalized weakness. Patient denies fever, chills, cough, sputum production, known COVID exposure, chest pain, pressure, palpitations, N/V/D at present, abdominal pain or change in bladder habits. Review of Systems -Last BM: 07/17 Additional ROS info: Except as noted in the above Review of Systems and in the History of Present Illness all other systems have been reviewed and are negative or noncontributory Scoring Lee Fall Risk Score: 0 (07/18/23) Physical Exam Vitals & Measurements T: 36.9 ?C(Oral) HR: 62(Monitored) RR: 20 BP: 131/86 SpO2: 98% HT: 180 cm WT: 78.8 kg General: Calm, able to communicate needs, Head: Normocephalic/atraumatic Eyes: Pupils equal, round, Conjunctivae and sclerae normal, HEENT: Mucous membrane moist. Tongue normal, post. oral cavity is erythemic Neck: Trachea midline, neck supple, Chest: No chest wall deformity, no chest wall tenderness Lungs: CTA del real. Cardio: Normal rate, currently in RSR, no edema. Pulses: Normal capillary refill Abdomen: Soft, non-distended, non-tender, normal BS Musculoskeletal: No deformity or scoliosis noted. Integumentary: Warm, dry, Extremity: No clubbing, Neurologic: Alert, oriented x4, follows commands, Mental status: Pleasant & cooperative, approp. affect, Lab Results Glucose Lvl: 112 mg/dL (07/18/23 12:49:00) BUN: 34 mg/dL High (07/18/23 12:49:00) Creatinine: 1.1 mg/dL (07/18/23 12:49:00) eGFR: 87 mL/min/1.73 m2 (07/18/23 12:49:00) BUN/Creat Ratio: 31 High (07/18/23 12:49:00) Sodium Lvl: 132 mmol/L Low (07/18/23 12:49:00) Potassium Lvl: 2.5 mmol/L Critical (07/18/23 12:49:00) Chloride: 84 mmol/L Low (07/18/23 12:49:00) CO2: 35 mmol/L High (07/18/23 12:49:00) AGAP: 16 mEq/L (07/18/23 12:49:00) Calcium Lvl: 9.2 mg/dL (07/18/23 12:49:00) Magnesium: 2.1 mg/dL (07/18/23 12:49:00) Diagnostic Results No qualifying data available. Assessment/Plan 1. Hypokalemia (E87.6: Hypokalemia) 2/2 GI loss, poor po intake -IV/PO KCL replacement -Mag level - wnl -Trend labs 2. Hyponatremia (E87.1: Hypo-osmolality and hyponatremia) Likely 2/2 dehydration, Gi loss, -Asymptomatic -Baseline Na level: 135 -IVF -Trend BMP 3. Nausea vomiting and diarrhea (R11.2: Nausea with vomiting, unspecified) Resolved at present but pt. has had very minimal po intake in 3 days -Denies abd. complaints -Clear liquids - adv as jaron. -Cdiff, enteric panel - pending 4. Odynophagia (R13.10: Dysphagia, unspecified) Likely 2/2 projectile vomiting x 3 days -GI cocktail x 1 -BMX idris. -PPI BID 5. Erythrocytosis (D75.1: Secondary polycythemia) Likely 2/2 hypovol. 2/2 GI loss, poor po intake -IVF -Trend labs 6. Smoker (F17.200: Nicotine dependence, unspecified, uncomplicated) Educated on the need for complete smoking cessation -Nicotine patch if requested 7. Acid reflux (K21.9: Gastro-esophageal reflux disease without esophagitis) -PPI 8. On deep vein thrombosis (DVT) prophylaxis (Z79.899: Other assisted (current) drug therapy) -Heparin sq with early ambulation Orders: acetaminophen, 650 mg = 2 tab(s), Tab, Oral, q6hr PRN Pain, Routine, Start date 07/18/23 15:51:00 EDT, 07/18/23 15:51:00 EDT Al hydroxide/Mg hydroxide/simethicone, 30 mL, Susp-Oral, Oral, Once, Stop date 07/18/23 16:00:00 EDT, Routine, Start date 07/18/23 16:00:00 EDT atropine/hyoscyamine/PB/scopolamine, 10 mL, Elixir, Oral, Once, Stop date 07/18/23 16:00:00 EDT, Routine, Start date 07/18/23 16:00:00 EDT BMX Solution, 5 mL, Liquid, Oral-Swish&Swallow, TIDAC, Routine, Start date 07/18/23 16:30:00 EDT heparin, 5,000 unit(s) = 1 mL, Injection, SubCutaneous, BID for 30 day(s), Stop date 08/17/23 20:59:00 EDT, Routine, Start date 07/18/23 21:00:00 EDT, 07/18/23 15:51:00 EDT lidocaine topical, 200 mg, 10 mL, Soln-Oral, Oral, Once, Stop date 07/18/23 16:00:00 EDT, Routine, Start date 07/18/23 16:00:00 EDT ondansetron, 4 mg = 2 mL, Injection, IV Push, q6hr PRN Nausea, Routine, Start date 07/18/23 15:51:00 EDT, 07/18/23 15:51:00 EDT pantoprazole, 40 mg = 1 tab(s), Tab-DR, Oral, BID, NOW, Start date 07/18/23 15:58:00 EDT, 07/18/23 15:58:00 EDT potassium chloride, 40 mEq = 2 tab(s), Tab-ER, Oral, Once, Stop date 07/18/23 16:00:00 EDT, Routine, Start date 07/18/23 16:00:00 EDT Sodium Chloride 0.9% intravenous solution 1,000 mL, 1,000 mL, IV, 75 (more content not included)...[facility]:Result Comment: Electronically Signed By: Gely MCALLISTER\.br\Date and Time Signed: 07/18/23 16:05 EDT\.br\Electronically Co-Signed By: Peña Gr DO\.br\Date and Time Co-Signed: 07/19/23 06:58 [id number] Evaluation + Plan note Future Scheduled Tests Laboratory* Amylase Level 07/11/23 * CBC w/ Auto Diff 05/23/23 * Comprehensive Metabolic Panel 05/23/23 * Lipase Level 07/11/23 Radiology* MRI Cholangiogram Pancreatography (mrcp) 07/11/23 [facility] [id number] Evaluation + Plan note Future Scheduled Tests Radiology* MRI Cholangiogram Pancreatography (mrcp) 07/11/23 [facility]08-17-2023 Hospital Discharge instructions Patient Education 07/11/2023 10:46:36 Peptic Ulcer Peptic Ulcer A peptic ulcer is a sore in the lining of the stomach (gastric ulcer) or the first part of the small intestine (duodenal ulcer). The ulcer causes a gradual wearing away (erosion) of the deeper tissue. What are the causes? Normally, the lining of the stomach and the small intestine protects them from the acid that digests food. The protective lining can be damaged by: An infection caused by a type of bacteria called Helicobacter pylori or H. pylori. Regular use of NSAIDs, such as ibuprofen or aspirin. Rare tumors in the stomach, small intestine, or pancreas (Ruben Andrade syndrome). What increases the risk? The following factors may make you more likely to develop this condition: Smoking. Having a family history of ulcer disease. Drinking alcohol. Having been hospitalized in an intensive care unit (ICU). What are the signs or symptoms? Symptoms of this condition include: Persistent burning pain in the area between the chest and the belly button. The pain may be worse on an empty stomach and at night. Heartburn. Nausea and vomiting. Bloating. If the ulcer results in bleeding, it can cause: Black, tarry stools. Vomiting of bright red blood. Vomiting of material that looks like coffee grounds. How is this diagnosed? This condition may be diagnosed based on: Your medical history and a physical exam. Various tests or procedures, such as: ?Upper endoscopy. The health care provider examines the esophagus, stomach, and small intestine using a small flexible tube that has a video camera at the end. ?Blood tests, stool tests, or breath tests to check for the H. pylori bacteria. ?An X-ray exam (upper gastrointestinal series) of the esophagus, stomach, and small intestine. ?A biopsy to help find certain causes of ulcers. A tissue sample is removed during upper endoscopy to be examined under a microscope. How is this treated? Treatment for this condition may include: Eliminating the cause of the ulcer, such as smoking or use of NSAIDs, and limiting alcohol and caffeine intake. Medicines to reduce the amount of acid in your digestive tract. Antibiotic medicines, if the ulcer is caused by an H. pylori infection. An upper endoscopy may be used to treat a bleeding ulcer. Surgery. This may be needed if the bleeding is severe or if the ulcer created a hole somewhere in the digestive system. Follow these instructions at home: Do not drink alcohol if your health care provider tells you not to drink. Do not use any products that contain nicotine or tobacco. These products include cigarettes, chewing tobacco, and vaping devices, such as e-cigarettes. If you need help quitting, ask your health careprovider. Take gcrf-hrd-aziilan and prescription medicines only as told by your health care provider. ?Do not use cswm-vhy-kswcssk medicines in place of prescription medicines unless your health care provider approves. ?Do not take aspirin, ibuprofen, or other NSAIDs unless your health care provider tells you to. Keep all follow-up visits. This is important. Contact a health care provider if: Your symptoms do not improve within 7 days of starting treatment. You have ongoing indigestion or heartburn. Get help right away if: You have sudden, sharp, or persistent pain in your abdomen. You have bloody or dark black, tarry stools. You vomit blood or material that looks like coffee grounds. You become light-headed or you feel faint. You become weak. You become sweaty or clammy. These symptoms may be an emergency. Get help right away. Call 911. Do not wait to see if the symptoms will go away. Do not drive yourself to the hospital. Summary A peptic ulcer is a sore in the lining of the stomach (gastric ulcer) or the first part of the small intestine (duodenal ulcer). The ulcer causes a gradual wearing away (erosion) of the deeper tissue. Do not use any products that contain nicotine or tobacco. These products include cigarettes, chewing tobacco, and vaping devices, such as e-cigarettes. If you need help quitting, ask your health careprovider. Take epct-wfu-tuevhyx and prescription medicines only as told by your health care provider. Do not use ggrh-lby-tyzajzn medicines in place of prescription medicines unless your health care provider approves. Limit your alcohol and caffeine intake. Keep all follow-up visits. This is important. This information is not intended to replace advice given to you by your health care provider. Make sure you discuss any questions you have with your health care provider. Document Revised: 06/22/2022 Document Reviewed: 06/22/2022 [employer] Patient Education 2022 [employer]. Follow Up Care 05/23/2023 11:12:14 With:Cyndee Snell CNP Address: When:1 month [facility] 06-29-2023 Hospital Discharge instructions Patient Education 05/23/2023 10:51:33 Colon Polyps Colon Polyps Colon polyps are tissue growths inside the colon, which is part of the large intestine. They are one of the types of polyps that can grow in the body. A polyp may be a round bump or a mushroom-shapedgrowth. You could have one polyp or more than one. Most colon polyps are noncancerous (benign). However, some colon polyps can become cancerous over time. Finding and removing the polyps early can help prevent this. What are the causes? The exact cause of colon polyps is not known. What increases the risk? The following factors may make you more likely to develop this condition: Having a family history of colorectal cancer or colon polyps. Being older than 45 years of age. Being younger than 45 years of age and having a significant family history of colorectal cancer or colon polyps or a genetic condition that puts you at higher risk of getting colon polyps. Having inflammatory bowel disease, such as ulcerative colitis or Crohn's disease. Having certain conditions passed from parent to child (hereditary conditions), such as: ?Familial adenomatous polyposis (FAP). ?Townsend syndrome. ?Turcot syndrome. ?Peutz Jeghers syndrome. ?MUTYH-associated polyposis (MAP). Being overweight. Certain lifestyle factors. These include smoking cigarettes, drinking too much alcohol, not gettingenough exercise, and eating a diet that is high in fat and red meat and low in fiber. Having had childhood cancer that was treated with radiation of the abdomen. What are the signs or symptoms? Many times, there are no symptoms. If you have symptoms, they may include: Blood coming from the rectum during a bowel movement. Blood in the stool (feces). The blood may be bright red or very dark in color. Pain in the abdomen. A change in bowel habits, such as constipation or diarrhea. How is this diagnosed? This condition is diagnosed with a colonoscopy. This is a procedure in which a lighted, flexible scope is inserted into the opening between the buttocks (anus) and then passed into the colon to examine the area. Polyps are sometimes found when a colonoscopy is done as part of routine cancer screening tests. How is this treated? This condition is treated by removing any polyps that are found. Most polyps can be removed during a colonoscopy. Those polyps will then be tested for cancer. Additional treatment may be needed depending on the results of testing. Follow these instructions at home: Eating and drinking Eat foods that are high in fiber, such as fruits, vegetables, and whole grains. Eat foods that are high in calcium and vitamin D, such as milk, cheese, yogurt, eggs, liver, fish, and broccoli. Limit foods that are high in fat, such as fried foods and desserts. Limit the amount of red meat, precooked or cured meat, or other processed meat that you eat, such as hot dogs, sausages, barrientos, or meat loaves. Limit sugary drinks. Lifestyle Maintain a healthy weight, or lose weight if recommended by your health care provider. Exercise every day or as told by your health care provider. Do not use any products that contain nicotine or tobacco, such as cigarettes, e- cigarettes, and chewing tobacco. If you need help quitting, ask your health care provider. Do not drink alcohol if: ?Your health care provider tells you not to drink. ?You are , may be , or are planning to become . If you drink alcohol: ?Limit how much you use to: ?0 1 drink a day for women. ?0 2 drinks a day for men. ?Know how much alcohol is in your drink. In the [place] one drink equals one 12 oz bottle of beer (355 mL), one 5 oz glass of wine (148 mL), or one 1 oz glass of hard liquor (44 mL). General instructions Take ixyh-pod-lpqguls and prescription medicines only as told by your health care provider. Keep all follow-up visits. This is important. This includes having regularly scheduled colonoscopies. Talk to your health care provider about when you need a colonoscopy. Contact a health care provider if: You have new or worsening bleeding during a bowel movement. You have new or increased blood in your stool. You have a change in bowel habits. You lose weight for no known reason. Summary Colon polyps are tissue growths inside the colon, which is part of the large intestine. They are one type of polyp that can grow in the body. Most colon polyps are noncancerous (benign), but some can become cancerous over time. This condition is diagnosed with a colonoscopy. This condition is treated by removing any polyps that are found. Most polyps can be removed during a colonoscopy. This information is not intended to replace advice given to you by your health care provider. Make sure you discuss any questions you have with your health care provider. Document Revised: 03/01/2021 Document Reviewed: 03/01/2021 [employer] Patient Education 2022 [employer]. Follow Up Care 05/21/2023 12:41:27 With:Cyndee Snell CNP Address: When:1 month [facility] Evaluation + Plan note Future Appointments Appointment Date:05/06/2023 09:05:00 AM Scheduled Provider: Location:[facility] Appointment Type:Surgery FT [facility] Evaluation + Plan note Future Appointments Appointment Date:05/29/2023 10:00:00 AM Scheduled Provider: Location:.[facility] Appointment Type:US Abdominal/Pelvis (FT) Appointment Date:07/11/2023 10:20:00 AM Scheduled Provider:Cyndee Snell CNP Location:[facility] Appointment Type:[facility] Follow Up Future Scheduled Tests Laboratory* CBC w/ Auto Diff 05/23/23 * Comprehensive Metabolic Panel 05/23/23 Radiology* US Abdomen, Limited 05/29/23 [facility] Evaluation + Plan note Future Appointments Appointment Date:07/11/2023 10:20:00 AM Scheduled Provider:Cyndee Snell CNP Location:[facility] Appointment Type:[facility] Follow Up Future Scheduled Tests Laboratory* CBC w/ Auto Diff 05/23/23 * [facility] Appointment Date:07/25/2023 09:40:00 AM Scheduled Provider:Cyndee Snell CNP Location:[facility] Appointment Type:BAD Follow Up Future Scheduled Tests Radiology* MRI Cholangiogram Pancreatography (m[facility]p) [facility] Appointment Date:08/27/2023 08:20:00 AM Scheduled Provider:Cyndee Snell CNP Location:[facility] Appointment Type:BADH Follow Up [facility] Evaluation + Plan note Future Appointments Appointment Date:11/27/2023 08:20:00 AM Scheduled Provider:Cyndee Snell CNP Location:[facility]ive [facility] Appointment Type:[facility] Follow Up Future Scheduled Tests Radiology* XR Esophagus 08/27/23 [facility] Evaluation + Plan note Future Appointments Appointment Date:12/24/2023 11:00:00 AM Scheduled Provider:Can ROSA MD Location[facility] Appointment Type:Cardiology Inpatient Follow Up (FT) Future Scheduled Tests Radiology* XR Esophagus 08/27/23 [facility] Hospital course Narrative No data available for this section [facility] Hospital Discharge instructions No data available for this section [facility] Progress note No data available for this section [facility] Summary Purpose Family History No Family History Records Found No data available for this section No data available for this section No data available for this section No data available for this section No Family History Records Found Advance Directives No Advanced Directives Records FoundNo Advanced Directives Records Found Additional Source Comments (unrecognized sect ion and content) No Status Records FoundNo Status Records Found INFORMATION SOURCE (unrecogn ized section and content) DATE CREATED AUTHOR 02/01/2023 [employer] [facility] DATE CREATED AUTHOR 'S ORGANIZ ATION 05/13/2024 [facility] Patient Care team informatio n (unrecognized section and content) Personnel Name: Amber English DO Address: Address: [facility] [address] Personnel Name: Amber English DO Address: Address: [facility] [address] Personnel Name: Amber English DO Address: Address: [facility] [address] Personnel Name: Amber English DO Address: Address: [facility] [address] Personnel Name: Amber English DO Address: Address: [facility] [address] Personnel Name: Amber English DO Address: Address: [facility] [address] Personnel Name: Amber English DO Address: Address: [facility] [address] Personnel Name: Amber English DO Address: Address: [facility] [address] Personnel Name: Amber English DO Address: Address: [facility] [address] Personnel Name: Amber English DO Address: Address: [facility] [address] Personnel Name: Amber English DO Address: Address: [facility] [address] Personnel Name: Amber English DO Address: Address: [facility] [address], [address] Personnel Name: Amber English DO Address: Address: [facility] [address], [address] FOR RECORDS PERTAINING TO PATIENTS WHO ARE OR HAVE BEEN ENROLLED IN A CHEMICAL DEPENDENCY/SUBSTANCEABUSE PROGRAM, SOME INFORMATION MAY BE OMITTED. This clinical summary was aggregated from multiple sources. Caution should be exercised in using it in the provision of clinical care. This summary normalizes information from multiple sources, and as a consequence, information in this document may materially change the coding, format and clinical context of patient data. In addition, data may be omitted in some cases. CLINICAL DECISIONS SHOULD BE BASED ON THE PRIMARY CLINICAL RECORDS. [facility] [employer] [facility]. provides no warranty or guarantee of the accuracy or completeness of information in this document.
[2024-05-27] MEDS: 0.9 % SODIUM CHLORIDE 1,000 ML 999 ML IV (14:28)
[2024-05-27] MEDS: METOCLOPRAMIDE HCL 10 MG/2 ML VIAL IVP (14:29)
[2024-05-27] MEDS: DIPHENHYDRAMINE HCL 50 MG/ML VIAL 25 MG IV (14:29)
[2024-05-27 14:31] LABS: Basophils Percent Auto 0.1 % (0.2-2.0); Hemoglobin 14.4 g/dL (14.0-18.0); Immature Granulocytes Abs Auto 0.05 10^3/uL (0.00-0.03); Immature Granulocytes Pct Auto 0.3 % (0.0-0.5); Lymphocytes Percent Auto 13.5 % (20.5-60.0); Mean Corpuscular HGB Conc 35.1 g/dL (29.9-35.2); Mean Corpuscular Hemoglobin 30.5 pg (25.9-34.0); Mean Corpuscular Volume 86.9 fL (80.0-94.0); Mean Platelet Volume 11.6 fL (9.5-13.5); Monocytes Absolute Auto 0.9 10^3/uL (0.3-0.8); Neutrophils Absolute Auto 11.6 10^3/uL (1.4-6.5); Neutrophils Percent Auto 80.1 % (43.0-75.0); Platelet Count 273 10^3/uL (150-450); Red Blood Count 4.72 10^6/uL (4.70-6.10); Red Cell Distribution Width 12.8 % (11.0-15.0); White Blood Count 14.4 10^3/uL (4.0-11.0)
[2024-05-27 14:55] LABS: Alanine Aminotransferase 16 U/L (16-63); Albumin Level 4.3 g/dL (3.4-5.0); Alkaline Phosphatase 54 U/L (46-116); Anion Gap 15.5; Aspartate Amino Transferase 14 U/L (15-37); BUN Creatinine Ratio 14.9; Bilirubin Total 0.7 mg/dL (0.2-1.0); Calcium 9.6 mg/dL (8.5-10.1); Carbon Dioxide 25.5 mmol/L (21.0-32.0); Chloride 99 mmol/L (98-107); Estimated GFR (African America >60 (>=60); Estimated GFR (Non-African Ame >60 (>=60); Globulin 4.1 g/dL; Glucose 115 mg/dL (74-106); Sodium 137 mmol/L (136-145); Total Protein 8.4 g/dL (6.4-8.2)
[2024-05-27] MEDS: POTASSIUM CHLORIDE 10 MEQ ER TABLET 40 MEQ PO (15:19)
[2024-05-27] MEDS: LORAZEPAM 2 MG/ML VIAL 1 MG IV (15:44)
[2024-05-27] MEDS: CLONIDINE 1 PATCH TD (15:50)
== END 2024-05-27 16:50 | disposition home or self-care (01) ==
PROVIDERS: Nurse Practitioner Family; Emergency Provider Emergency Medicine
DX: R11.2 Nausea with vomiting, unspecified (principal); R19.7 Diarrhea, unspecified; F11.23 Opioid dependence with withdrawal
CPT/HCPCS: 36415; 80053; 83690; 85025; 96361; 96374; 96375; 99284; J1200; J2060; J2765

== ENCOUNTER 2024-06-01 10:27 | Emergency (ER) | payer OTHER, SELFPAY ==
[2024-06-01] VITALS (22 sets, daily range): BP systolic 148–169; BP diastolic 76–91; PULSE 38–80; TEMP 36.6; O2SAT 96–100; BMI 23.1
--- NOTE | 2024-06-01 10:54 | ECG_ITS ---
[facility] Test Date: 2024-06-01 Pat Name: CATHI CHAVEZ Department: Room: - Gender: Male [employer] Attendant: : 1985 Requested By: Order Number: [id number] Reading MD: COLLEEN ASENCIO Measurements Intervals [place] Rate: 44 P: 69 SC: 140 QRS: 77 QRSD: 98 T: 72 QT: 598 QTc: 548 Interpretive Statements 1130 Sinus bradycardia 8304 Long QTc interval 9150 abnormal ECG Compared to ECG 12/06/2020 17:31:18 Sinus rhythm no longer present Left ventricular hypertrophy no longer present Electronically Signed On 06-01-2024 22:56:34 EDT by COLLEEN ASENCIO
[2024-06-01] MEDS: 0.9 % SODIUM CHLORIDE 1,000 ML 999 ML IV (11:11)
[2024-06-01] MEDS: KETOROLAC TROMETHAMINE 30 MG/ML VIAL 15 MG IVP (11:12)
[2024-06-01] MEDS: MAGNESIUM SULFATE IN WATER 2 GM/50 ML PREMIX IV (11:12)
[2024-06-01] MEDS: ONDANSETRON PF 4 MG/2 ML VIAL IV (11:12)
[2024-06-01 11:13] LABS: Basophils Absolute Auto 0.1 10^3/uL (0.0-0.1); Basophils Percent Auto 0.6 % (0.2-2.0); Eosinophils Absolute Auto 0.1 10^3/uL (0.0-0.7); Eosinophils Percent Auto 0.8 % (0.9-7.0); Hematocrit 39.1 % (42.0-54.0); Hemoglobin 13.9 g/dL (14.0-18.0); Immature Granulocytes Abs Auto 0.03 10^3/uL (0.00-0.03); Immature Granulocytes Pct Auto 0.3 % (0.0-0.5); Lymphocytes Absolute Auto 2.2 10^3/uL (1.2-3.8); Lymphocytes Percent Auto 20.1 % (20.5-60.0); Mean Corpuscular HGB Conc 35.5 g/dL (29.9-35.2); Mean Corpuscular Hemoglobin 30.8 pg (25.9-34.0); Mean Corpuscular Volume 86.7 fL (80.0-94.0); Mean Platelet Volume 12.3 fL (9.5-13.5); Monocytes Absolute Auto 0.4 10^3/uL (0.3-0.8); Monocytes Percent Auto 4.1 % (1.7-12.0); Neutrophils Percent Auto 74.1 % (43.0-75.0); Platelet Count 300 10^3/uL (150-450); Red Blood Count 4.51 10^6/uL (4.70-6.10); Red Cell Distribution Width 12.5 % (11.0-15.0); White Blood Count 10.7 10^3/uL (4.0-11.0)
[2024-06-01 11:49] LABS: Alanine Aminotransferase 17 U/L (16-63); Albumin Globulin Ratio 1.1; Albumin Level 3.9 g/dL (3.4-5.0); Alkaline Phosphatase 47 U/L (46-116); Anion Gap 13.5; Aspartate Amino Transferase 10 U/L (15-37); BUN Creatinine Ratio 16.5; Bilirubin Total 0.6 mg/dL (0.2-1.0); Calcium 8.9 mg/dL (8.5-10.1); Carbon Dioxide 24.8 mmol/L (21.0-32.0); Chloride 105 mmol/L (98-107); Estimated GFR (African America >60 (>=60); Estimated GFR (Non-African Ame >60 (>=60); Ethanol <3 mg/dL; Globulin 3.4 g/dL; Glucose 111 mg/dL (74-106); Magnesium 2.1 mg/dL (1.8-2.4); Potassium 3.3 mmol/L (3.5-5.1); Sodium 140 mmol/L (136-145); Total Protein 7.3 g/dL (6.4-8.2)
[2024-06-01] MEDS: POTASSIUM CHLORIDE 10 MEQ ER TABLET 40 MEQ PO (13:13)
--- NOTE | 2024-06-01 16:20 | ED.GENADUL1 ---
HPI HPI - General Adult General Chief complaint: Nausea/Vomiting/Diarrhea Stated complaint: SOB, VOMITING, DIARRHEA Time Seen by Provider: 06/01/24 10:38 Source: patient Mode of arrival: walk-in History of Present Illness HPI narrative: 39-year-old male to the emergency department chief complaint of opiate withdrawal. He reports that he last took a dose of Suboxone 4 days ago. He reports that he has a history of withdrawal when he stops taking it. He buys his Suboxone on the street. He does not have a prescription. He reports nausea, vomiting, diarrhea. Reports that he is responded well to fluids and Zofran in the past. Related Data Home Medications ?Medication ?Instructions ?Recorded ?Confirmed No Known Home Medications 05/27/24 05/27/24 Previous Rx's ?Medication ?Instructions ?Recorded lorazepam 0.5 mg tablet (Ativan) 0.5 mg PO Q8H PRN withdrawal 05/27/24 symptoms 3 days #8 tabs ondansetron 4 mg disintegrating 4 mg PO TID PRN nausea and 05/27/24 tablet vomiting 4 days #12 tabs ondansetron 4 mg disintegrating 4 mg PO Q8H PRN nausea and 06/01/24 tablet vomiting 4 days #16 tabs Allergies Allergy/AdvReac Type Severity Reaction Status Date / Time No Known Drug Allergies Allergy Verified 02/09/24 10:23 Opioid HPI Opioid Management Most Recent Opioid Data: Last Pain Scale 3 06/01/24 11:12 Last JAN Pain Assessment 06/01/24 11:12 Review of Systems ROS Status of ROS 10 or more systems reviewed and unremarkable except as noted in history and below Exam Narrative Exam Narrative: VITALS: I have reviewed the triage vital signs. GENERAL: Well developed, well appearing adult in no acute distress. NEURO: Alert and oriented. Moves all extremities. Face is symmetric and expressive. EYES: PERRL. No scleral icterus or conjunctival injection. No discharge. HENT: Normocephalic, atraumatic. Hearing is grossly intact. Nares grossly patent and without discharge. Mucous membranes moist. NECK: No JVD. Patient moves neck without restriction. CARDIO: Rhythm regular. Normal rate. No murmur, rub, or gallop. Pulses equal bilaterally in the upper and lower extremity. No lower extremity edema. PULM: Lungs clear to auscultation in all del real. No wheezes, rales, or rhonchi. No conversational dyspnea. No splinting, stridor, or accessory muscle use. GI/: Abdomen is soft and non-tender. Normoactive bowel sounds. EXTREMITIES: Symmetric muscle bulk. No joint swelling. No clubbing, cyanosis, or deformity. SKIN: Warm and dry. Normal turgor. No rash or lesions appreciated. PSYCH: Mood, affect, and interaction is appropriate to the setting. Constitutional Vital Signs, click to edit/add: Last Vital Signs Temp 97.9 F 06/01/24 10:30 Pulse 80 06/01/24 13:01 Resp 12 06/01/24 12:30 BP 159/89 H 06/01/24 13:01 Pulse Ox 100 06/01/24 13:01 O2 Del Method Room Air 06/01/24 10:30 Course Vital Signs Vital signs: Vital Signs Temperature 97.9 F 06/01/24 10:30 Pulse Rate 44 L 06/01/24 10:30 Respiratory Rate 16 06/01/24 10:30 Blood Pressure 159/76 H 06/01/24 10:30 Pulse Oximetry 99 06/01/24 10:30 Oxygen Delivery Method Room Air 06/01/24 10:30 Temperature 97.9 F 06/01/24 10:30 Pulse Rate 80 06/01/24 13:01 Respiratory Rate 12 06/01/24 12:30 Blood Pressure 159/89 H 06/01/24 13:01 Pulse Oximetry 100 06/01/24 13:01 Oxygen Delivery Method Room Air 06/01/24 10:30 Medical Decision Making [facility] Narrative Medical decision making narrative: Well-appearing 39-year-old male to the emergency department what he describes as typical withdrawal symptoms for him from Suboxone. Vital stable, the patient is afebrile. He intends to cease the Suboxone use. Basic labs are ordered without acute findings. Mild hypokalemia repleted orally. He was given Zofran, magnesium, fluids and felt much improved. He reports he would like to be discharged home. Zofran was prescribed. He was offered rehab placement declined. All questions were answered. Return precautions were discussed. Patient was discharged home. Medical Records Medical records reviewed: Yes I reviewed the patient's medical records Lab Data Lab results reviewed: Yes I reviewed the patient's lab results Labs: Lab Results 06/01/24 06/01/24 Range/Units 11:04 11:27 WBC 10.7 (4.0-11.0) 10^3/uL RBC 4.51 L (4.70-6.10) 10^6/uL Hgb 13.9 L (14.0-18.0) g/dL Hct 39.1 L (42.0-54.0) % MCV 86.7 (80.0-94.0) fL MCH 30.8 (25.9-34.0) pg MCHC 35.5 H (29.9-35.2) g/dL RDW 12.5 (11.0-15.0) % Plt Count 300 (150-450) 10^3/uL MPV 12.3 (9.5-13.5) fL Neut % (Auto) 74.1 (43.0-75.0) % Lymph % (Auto) 20.1 L (20.5-60.0) % Gosper % (Auto) 4.1 (1.7-12.0) % Eos % (Auto) 0.8 L (0.9-7.0) % Baso % (Auto) 0.6 (0.2-2.0) % Neut # (Auto) 8.0 H (1.4-6.5) 10^3/uL Lymph # (Auto) 2.2 (1.2-3.8) 10^3/uL Gosper # (Auto) 0.4 (0.3-0.8) 10^3/uL Eos # (Auto) 0.1 (0.0-0.7) 10^3/uL Baso # (Auto) 0.1 (0.0-0.1) 10^3/uL Abs Immat Gran (auto) 0.03 (0.00-0.03) 10^3/uL Imm/Tot Granulo (auto) 0.3 (0.0-0.5) % Sodium 140 (136-145) mmol/L Potassium 3.3 L (3.5-5.1) mmol/L Chloride 105 (98-107) mmol/L Carbon Dioxide 24.8 (21.0-32.0) mmol/L Anion Gap 13.5 BUN 13.0 (7.0-18.0) mg/dL Creatinine 0.79 (0.70-1.30) mg/dL Est GFR ( Amer) >60 (>=60) Est GFR (Non-Af Amer) >60 (>=60) BUN/Creatinine Ratio 16.5 Glucose 111 H (74-106) mg/dL Calcium 8.9 (8.5-10.1) mg/dL Magnesium 2.1 (1.8-2.4) mg/dL Total Bilirubin 0.6 (0.2-1.0) mg/dL AST 10 L (15-37) U/L ALT 17 (16-63) U/L Alkaline Phosphatase 47 (46-116) U/L Total Protein 7.3 (6.4-8.2) g/dL Albumin 3.9 (3.4-5.0) g/dL Globulin 3.4 g/dL Albumin/Globulin Ratio 1.1 Ethanol Quant <3 mg/dL ECG Data Attestation: I personally reviewed and interpreted this ECG as follows: (Sinus bradycardia. No STEMI. Normal QTc. ) Discharge Plan Discharge Stand Alone Forms: Portal Instructions Chief Complaint: Nausea/Vomiting/Diarrhea Clinical Impression: Nausea, vomiting, and diarrhea, Withdrawal syndrome Patient Disposition: Home, Self-Care Time of Disposition Decision: 13:01 Condition: Good Mode of Transportation: Private Vehicle Prescriptions / Home Meds: New ondansetron 4 mg tablet,disintegrating 4 mg PO Q8H PRN (Reason: nausea and vomiting) 4 Days Qty: 16 0RF No Action No Known Home Medications ondansetron 4 mg tablet,disintegrating 4 mg PO TID PRN (Reason: nausea and vomiting) 4 Days Qty: 12 0RF lorazepam [Ativan] 0.5 mg tablet 0.5 mg PO Q8H PRN (Reason: withdrawal symptoms) 3 Days Qty: 8 0RF Print Language: Korean Instructions: Acute Nausea and Vomiting (ED), Opioid Withdrawal (ED) Referrals: Zion Oden MD [Physician] - 1 week Physician,Non-Staff, [Primary Care Provider] - 1 week Discharge Date/Time: 06/01/24 13:16
== END 2024-06-01 13:16 | disposition home or self-care (01) ==
PROVIDERS: Emergency Provider Student in an Organized Health Care Education/Training Program
DX: F11.23 Opioid dependence with withdrawal (principal); R11.2 Nausea with vomiting, unspecified; R19.7 Diarrhea, unspecified; E87.6 Hypokalemia
CPT/HCPCS: 36415; 80053; 80307; 80320; 81003; 83735; 85025; 93005; 96361; 96365; 96375; 99285; J1885; J2405; J3475